=== PATIENT | male | born 1950 | race Caucasian/White ===

== ENCOUNTER 2017-04-17 02:20 | Inpatient (IN) | payer MEDICARE, OTHER ==
[2017-04-17] VITALS (12 sets, daily range): BP systolic 149–197; BP diastolic 68–100; PULSE 65–97; RESP 18; TEMP 95.6–98.3; O2SAT 94–96
[~2017-04-17] VITALS: Ht 175.3 cm; Wt 85.9 kg
[~2017-04-17 02:20] MED LIST: 1-ME1LIQ PO; ATOR20TA PO; BISA10SU PR; DILA100C PO; ISOS30TA3 PO; LEVE500 PO; LEVO.05 PO; LORA0.5T PO; METO25 PO; MILKSUS5 PO; PARO10TA PO; POTA20PA PO; PRIN10TA PO; PROM25TA5 PO; TAMS0.4C67 PO; WARF1TAB PO
[2017-04-17 02:39] LABS: AUTOMATED NEUTROPHIL # 7.3 TH/MM3 (1.8-7.7); BASOPHIL % 0.3 % (0.0-2.0); EOSINOPHIL # 0.1 TH/MM3 (0-0.4); EOSINOPHIL % 0.8 % (0.0-4.0); HEMATOCRIT 45.2 % (39.0-51.0); HEMO FLAGS DIFF FINAL; LYMPH % 11.2 % (9.0-44.0); MEAN CELL VOLUME 86.7 FL (80.0-100.0); MEAN CORPUSCULAR HEMOGLOBIN 31.1 PG (27.0-34.0); MEAN CORPUSCULAR HGB CONC 35.8 % (32.0-36.0); MONO % 8.7 % (0.0-8.0); PLATELET COUNT 193 TH/MM3 (150-450); RED BLOOD COUNT 5.21 MIL/MM3 (4.50-5.90); RED CELL DISTRIBUTION WIDTH 13.5 % (11.6-17.2); WHITE BLOOD COUNT 9.3 TH/MM3 (4.0-11.0)
--- NOTE | 2017-04-17 02:41 | PD ---
HPI Chief Complaint: Stroke Alert Time Seen by Provider: 02:28 Travel History International Travel<30 days: No Contact w/Intl Traveler<30days: No Traveled to known affect area: No History of Present Illness HPI 66-year-old male was brought in by EMS for possible stroke. [facility] at local [facility]. Patient was noticed to have slurred speech and left-sided facial drooping tonight. Last seen normal was 7 hours prior. EMS was called. Patient was brought to the ED for evaluation. Patient has history of chronic atrial fibrillation, seizure, hypertension, anxiety, malignant neoplasm of soft tissue. Patient is on Coumadin. Patient's unable to provide information. Agent has history of previous CVA with left-sided weakness. PFSH Past Medical History Atrial Fibrillation: Yes Depression: Yes High Cholesterol: Yes Chest Pain: Yes COPD: Yes Cerebrovascular Accident: Yes Coronary Artery Disease: Yes Genitourinary: Yes (BPH) Hypertension: Yes Myocardial Infarction: Yes Renal Failure: Yes (INSUFFICIENCY) Seizures: Yes Thyroid Disease: Yes Past Surgical History Abdominal Aneurysm Repair: Yes Coronary Artery Bypass Graft: Yes (X4 ) Social History Alcohol Use: No (H/O ALCOHOLISM) Tobacco Use: Yes (3 CIGARETTES DAILY) Substance Use: No Allergies-Medications (Allergen,Severity, Reaction): Coded Allergies: No Known Allergies (Verified , 03/22/15) Reported Meds & Prescriptions Reported Meds & Active Scripts Active Synthroid (Levothyroxine Sodium) 50 Mcg Tab 75 Mcg PO DAILY@06 Keppra (Levetriacetam) 500 Mg Tab 500 Mg PO Q12 Lorazepam 0.5 Mg Tab 0.5 Mg PO TID Reported Bisacodyl 10 Mg Sup 10 Mg OH DAILY Phenergan (Promethazine HCl) 25 Mg Tab 25 Mg PO Q4H Atorvastatin 20 mg tab (Atorvastatin Calcium) 20 Mg Tab 1 Tab PO HS Warfarin Sodium 1 mg (Warfarin Sodium) 1 Mg Tab 1 Tab PO DAILY Flomax (Tamsulosin HCl) 0.4 Mg Cap 0.8 Mg PO DAILY Isosorbide Mononitrate Er (Isosorbide Mononitrate) 30 Mg Tab 30 Mg PO BID Dilantin Kapseals (Phenytoin Sodium) 100 Mg Cap 125 Mg PO BID Metoprolol Tartrate 25 mg (Metoprolol Tartrate) 25 Mg Tab 25 Mg PO BID Amlodipine Besylate 10 mg (Amlodipine Besylate) 10 Mg Tab 5 Mg PO DAILY Klor-Con (Potassium Chloride) 20 Meq Pow 20 Meq PO DAILY Prinivil (Lisinopril) 10 Mg Tab 20 Mg PO BID Paroxetine Hcl (Paroxetine HCl) 10 Mg Tab 10 Mg PO DAILY Milk Of Magnesia (Magnesium Hydroxide) 30 Ml Susp 30 Ml PO DAILYPRN Review of Systems ROS Limitations: Altered Mental Status, Speech Impaired General / Constitutional: No: Fever Eyes: No: Visual changes HENT: No: Headaches Cardiovascular: No: Chest Pain or Discomfort Respiratory: No: Shortness of Breath Gastrointestinal: No: Abdominal Pain Genitourinary: No: Dysuria Musculoskeletal: No: Pain Skin: No Rash Neurologic: Positive: Weakness, Slurred Speech Psychiatric: No: Depression Endocrine: No: Polydipsia Hematologic/Lymphatic: No: Easy Bruising Physical Exam Narrative GENERAL: Well-nourished, well-developed patient. SKIN: Focused skin assessment warm/dry. HEAD: Normocephalic. EYES: No scleral icterus. No injection or drainage. Pupils 3 mm equal reactive. NECK: Supple, trachea midline. No JVD or lymphadenopathy. CARDIOVASCULAR: Regular rate and rhythm without murmurs, gallops, or rubs. RESPIRATORY: Breath sounds equal bilaterally. No accessory muscle use. GASTROINTESTINAL: Abdomen soft, non-tender, nondistended. MUSCULOSKELETAL: No cyanosis, or edema. BACK: Nontender without obvious deformity. No CVA tenderness. Neurologic exam: Patient is lethargic with slurred speech. Patient does not follow commands. Patient has eyes opening. Patient has mild drooping of the left side of face. Patient does not move left upper and lower extremity on command. Patient's moving right arm and right leg. Deep tendon reflexes +1 on the right side. Positive Babinski on the right side. Unable to appreciate deep tendon reflex on the left side. Negative Babinski on the left side. Data Data Last Documented VS Vital Signs Date Time Temp Pulse Resp B/P Pulse Ox O2 Delivery O2 Flow Rate FiO2 04/17/17 02:24 65 18 162/84 94 04/17/17 02:20 3.00 04/17/17 02:20 Nasal Cannula Orders Electrocardiogram (04/17/17 02:28) Complete Blood Count With Diff (04/17/17 02:28) Comprehensive Metabolic Panel (04/17/17 02:28) Creatine Kinase (Cpk) (04/17/17 02:28) Troponin I (04/17/17 02:28) B-Type Natriuretic Peptide (04/17/17 02:28) Prothrombin Time / Inr (Pt) (04/17/17 02:28) Act Partial Throm Time (Ptt) (04/17/17 02:28) Urinalysis - C+S If Indicated (04/17/17 02:28) Thyroid Stimulating Hormone (04/17/17 02:28) Chest, Single Ap (04/17/17 02:28) Ct Brain W/O Iv Contrast(Rout) (04/17/17 02:28) Iv Access Insert/Monitor (04/17/17 02:28) Ecg Monitoring (04/17/17:28) Oxygen Administration (04/17/17 02:28) Oximetry (04/17/17 02:28) MDM Medical Decision Making Medical Screen Exam Complete: Yes Emergency Medical Condition: Yes Differential Diagnosis Differential diagnosis including TIA, CVA, neuropathy. Narrative Course 66-year-old male with new onset of slurred speech and left-sided facial drooping. History of CVA with left-sided weakness in the past. History of atrial fibrillation on Coumadin. Joseph Dan MD Apr 17, 2017 02:41
[2017-04-17 03:08] LABS: APTT (PATIENT) 40.8 SEC (24.3-30.1); PROTHROMBIN TIME - PATIENT 34.7 SEC (9.8-11.6)
--- NOTE | 2017-04-17 03:09 | RADRPT ---
EXAM DATE/TIME: 04/17/2017 02:29 [facility] COMPARISON: CT BRAIN W/O CONTRAST, March 22, 2015, 20:40. INDICATIONS : Slurred speech, left facial droop. History of prior cerebral vascular accident.. RADIATION DOSE: 56.35 CTDIvol (mGy) ; Patient positioning MEDICAL HISTORY : Stroke. Hypertension. Benign prostatic hyperplasia, (BPH)Seizure. Coronary artery disease. SURGICAL HISTORY : Abdominal aortic aneurysm repair. CABG ENCOUNTER: Initial ACUITY: 1 day PAIN SCALE: 0/10 LOCATION: cranial TECHNIQUE: Multiple contiguous axial images were obtained of the head. Using automated exposure control and adj ustment of the mA and/or kV according to patient size, radiation dose was kept as low as reasonably a chievable to obtain optimal diagnostic quality images. DICOM format image data is available electro nically for review and comparison. FINDINGS: CEREBRUM: A large area of encephalomalacia is again noted involving the right parietal, temporal and occipital lobe. This is stable in appearance. There is atrophic change with sulcal and ventricular prominence. No evidence of midline shift, mass lesion, hemorrhage or acute infarction. No extra-axial fluid magdi ections are seen. POSTERIOR FOSSA: The cerebellum and brainstem are intact. The 4th ventricle is midline. The cerebellopontine angle i s unremarkable. EXTRACRANIAL: The visualized portion of the orbits is intact. SKULL: The calvaria is intact. No evidence of skull fracture. CONCLUSION: 1. No acute hemorrhage, mass or infarction. 2. Old right MCA territory infarct. Adan Alexandra MD on April 17, 2017 at 3:05 Board Certified Radiologist. This report was verified electronically.
--- NOTE | 2017-04-17 03:12 | RADRPT ---
EXAM DATE/TIME: 04/17/2017 02:33 [facility] COMPARISON: CHEST SINGLE AP, August 04, 2014, 7:57. INDICATIONS : Short of breath. MEDICAL HISTORY : None. SURGICAL HISTORY : CABG. ENCOUNTER: Initial ACUITY: 1 day PAIN SCORE: 0/10 LOCATION: Bilateral chest FINDINGS: A single AP supine view of the chest was obtained. The study is more Midinspiratory with mild crowdin g of the lung vasculature. The patient is again noted to be status post median sternotomy for bypass grafting procedure. There are no new confluent infiltrates or effusions. There is no evidence of pulm onary edema. There is mild scarring at the lung bases. The bony thorax is otherwise intact. CONCLUSION: No acute cardiopulmonary disease. Adan Alexandra MD on April 17, 2017 at 3:10 Board Certified Radiologist. This report was verified electronically.
[2017-04-17] MEDS ORDERED: WARF4TAB52 PO (03:20)
[2017-04-17] MEDS ORDERED: AMLO10TA2 PO (03:20)
[2017-04-17] MEDS ORDERED: ACET325C PO (03:20)
[2017-04-17] MEDS ORDERED: LISI-515 PO (03:20)
[2017-04-17] MEDS ORDERED: MULT-182 PO (03:20)
[2017-04-17] MEDS ORDERED: BISA10SU24 RECTAL (03:20)
[2017-04-17] MEDS ORDERED: BAZACRE TP (03:20)
[2017-04-17] MEDS ORDERED: LEVE500T8 PO (03:20)
[2017-04-17] MEDS ORDERED: ISOS30TA3 PO (03:20)
[2017-04-17] MEDS ORDERED: LEVO75TA3 PO (03:20)
[2017-04-17] MEDS ORDERED: TAMS0.4C4 PO (03:20)
[2017-04-17] MEDS ORDERED: LORA-373 PO (03:20)
[2017-04-17] MEDS ORDERED: METO25TA3 PO (03:20)
[2017-04-17] MEDS ORDERED: POTA-163 PO (03:20)
[2017-04-17] MEDS ORDERED: PHEN125S PO ×2 (03:20)
[2017-04-17] MEDS ORDERED: ASPIRIN 300 MG SUPP RECTAL ONE (03:45)
[2017-04-17] MEDS ORDERED: ACETAMINOPHEN 325 MG TAB PO PRN ×2 (04:30→08:15)
[2017-04-17] MEDS ORDERED: ONDANSETRON HCL 4 MG/2 ML VIAL IV PRN (04:30)
[2017-04-17] MEDS ORDERED: SODIUM CHLORIDE 0.9% FLUSH 10 ML FLUSH IVF PRN (04:30)
[2017-04-17 04:36] LABS: ALT (GPT) 21 U/L (12-78); ANION GAP 9 MEQ/L (5-15); AST (GOT) 31 U/L (15-37); BICARBONATE 24.2 MEQ/L (21.0-32.0); BLOOD UREA NITROGEN 13 MG/DL (7-18); CHLORIDE 100 MEQ/L (98-107); GLOMERULAR FILTRATION RATE 68 ML/MIN (>89); POTASSIUM 5.1 MEQ/L (3.5-5.1); SODIUM (NA) 133 MEQ/L (136-145)
[2017-04-17 04:43] LABS: ALKALINE PHOSPHATASE 100 U/L (45-117); TOTAL BILIRUBIN ADULT 0.3 MG/DL (0.2-1.0)
[2017-04-17 04:45] LABS: CREATINE KINASE 91 U/L (39-308)
[2017-04-17 04:56] LABS: BLOOD, URINE NEG (NEG); GLUCOSE,URINE TRACE mg/dL (NEG); KETONE, URINE NEG (NEG); NITRITE,URINE NEG (NEG); URINE COLOR LIGHT-YELLOW (YELLW/STRAW)
[2017-04-17 05:06] LABS: COMMENT (UR) CULT NOT INDICATED; CULTURE IF INDICATED CULT NOT INDICATED
[2017-04-17] MEDS ORDERED: BISACODYL 10 MG SUPP RECTAL PRN (08:15)
[2017-04-17] MEDS ORDERED: ONDANSETRON HCL 4 MG/2 ML VIAL IVP PRN (08:15)
[2017-04-17] MEDS ORDERED: SODIUM CHLORIDE 0.9% FLUSH 10 ML FLUSH IV FLUSH PRN ×2 (08:15→11:15)
[2017-04-17] MEDS ORDERED: ZOLPIDEM TARTRATE 5 MG TAB PO PRN (08:15)
[2017-04-17] MEDS ORDERED: MAGNESIUM HYDROXIDE SUSP 30 ML CUP PO PRN (08:15)
[2017-04-17] MEDS ORDERED: SENNOSIDES 8.6 MG TAB PO PRN (08:15)
[2017-04-17] MEDS ORDERED: LACTULOSE SYRUP 20 GM/30 ML CUP PO PRN (08:15)
[2017-04-17] MEDS ORDERED: NALOXONE HCL 0.4 MG/ML AMP IV PRN (08:15)
[2017-04-17] MEDS ORDERED: SODIUM CHLORIDE 0.9% FLUSH 10 ML FLUSH IV FLUSH SCH ×2 (09:00)
[2017-04-17] MEDS: DOCUSATE SODIUM 50 MG/SENNA 8.6 MG TAB PO SCH ×2 (09:00→20:35)
--- NOTE | 2017-04-17 10:32 | MH ---
cc: GAGANDEEP VICTORIA MD DATE OF ADMISSION: 04/17/2017 CHIEF COMPLAINT Altered mental status and stroke-like symptoms. HISTORY OF PRESENT ILLNESS Jey Blanco is a 66-year-old male. He resides at [facility]. He has been on Coumadin for many years that I can account for. His INR has been therapeutic and unfortunately at the [facility] he was found to have slurred speech and left facial droop. He has a underlying history of left side hemiparesis. I was called for emergency room transfer orders. The patient was transferred to [facility] and was found to have slurred speech and they confirm left-sided facial drooping. The patient is much more disheveled than usual. He does have left-sided facial droop and he reports that he cannot see. He states that he does recognize me and my voice. LABORATORY DATA Sodium 133, potassium 5.1, glucose 112, creatinine 1.09, CBC within normal limits. INR 3.0. Urine is clear. RADIOGRAPHY Chest x-ray shows no acute heart, lung disease. Head CT shows no acute hemorrhage, mass or infarction, old right MCA territory infarct. PAST MEDICAL HISTORY 1. CVA with left-sided hemiparesis. 2. Atrial fibrillation. 3. Hyperlipidemia. 4. COPD. 5. Coronary artery disease. 6. BPH. 7. Hypertension. 8. Myocardial infarction. 9. Renal insufficiency. 10. Seizures. 11. Hypothyroidism. SOCIAL HISTORY He recently quit smoking cigarettes and now is using E-cigarettes. He has a history of alcoholism but has abstained for at least several years. He occasionally would use a social beverage at the [facility]. No illicit drug usage. ALLERGIES NO KNOWN DRUG ALLERGIES. MEDICATION [facility] medications: 1. Synthroid. 2. Keppra. 3. Lorazepam scheduled t.i.d. 4. Dulcolax. 5. Phenergan. 6. Atorvastatin. 7. Coumadin 1 mg daily. 8. Flomax 0.4 mg two tablets daily. 9. Imdur 30 mg b.i.d. 10. Dilantin 125 mg b.i.d. 11. Metoprolol 25 mg b.i.d. 12. Norvasc 10 mg daily. 13. Klor-Con 20 mEq daily. 14. Lisinopril 20 mg b.i.d. 15. Paxil. 16. Qadw-fq-Flpjlofm. REVIEW OF SYSTEMS Altered mental status and slurred speech and new blindness. He has stable left hemiparesis overall. Negative 14-point review of systems otherwise. Review of systems is limited however. I did speak with the [facility]. VITAL SIGNS: Temperature 96.7, pulse 68, respirations 18, blood pressure 186/93, pulse 95, respirations 18. PHYSICAL EXAMINATION GENERAL: In general he is an alert male. He is laying flat. He appears to be overall in his usual state of health overall. HEENT: Oropharynx is clear. Poor dentition. Carotids are clear. No JVD. PERRLA. CARDIOVASCULAR: Regular rate and rhythm. No murmurs, rubs, clicks or gallops. ABDOMEN: Soft, nontender. No rebound or guarding. NEURO: Alert and oriented x 2. He is blind now. Cranial nerves are grossly intact except for a left facial droop. He has dense left hemiparesis in the left upper extremity and left lower extremity is 1/5 in strength, right lower extremity is 2/5 and right upper extremity is 3/5. He reports reduced sensation in the left dermatomes. ASSESSMENT 1. CVA now with blindness and left facial droop. On coumadin with INR 3.0 and now with blindness and left facial droop with underlying chronic left hemiparesis. 2. Atrial fibrillation. 3. Seizure disorder. 4. COPD, recently quit cigarettes. 5. Alcoholism history, currently in abstinence. 6. Hypertension. 7. Hyperlipidemia. 8. Hypothyroidism. 9. Chronic constipation. PLAN 1. MRI of the brain. 2. Neurology consult. 3. Aspirin given in the emergency room. 4. Coumadin for now, dose per pharmacy. 5. Speech therapy evaluation. 6. Head of the bed flat. 7. Permissive hypertension. 8. IV Keppra. 9. Nothing by mouth. 10. D5 normal saline. 11. Accu-Cheks with sliding scale insulin. 12. Telemetry. 13. SCDs. 14. TEDs. 15. Physical therapy. 16. Occupational therapy. 17. Inpatient admission for acute CVA. Expect 2-3 days of inpatient admission and discharge back to [facility]. The patient would without further workup and evaluation of his swallowing status. Gagandeep Victoria MD RP/GEETHA /9:33 AM /10:09 AM
[2017-04-17] MEDS: DEXT 5%-NACL 0.9% 1000 ML INJ 1,000 ML IV SCH ×2 (10:39→20:10)
[2017-04-17] MEDS: levETIRAcetam INJ 500 MG in SODIUM CHLORIDE 0.9% INJ 100 ML IV SCH (11:09)
[2017-04-17] MEDS ORDERED: DEXTROSE 50% IN WATER 50 ML VIAL(D50) IV PUSH PRN (11:15)
[2017-04-17] MEDS ORDERED: GLUCAGON 1 MG/ML VIAL OTHER PRN (11:15)
--- NOTE | 2017-04-17 12:18 | MB ---
cc: VIVEK GUADARRAMA M.D. DATE OF CONSULTATION 04/17/2017 REASON FOR CONSULTATION Stroke HISTORY OF PRESENT ILLNESS Mr. Blanco is a 66-year-old man who has a previous history of stroke with left-sided weakness. He takes Coumadin. [facility], developed slurred speech and increasing left facial droop, was brought to the hospital. He thinks his symptoms have improved. He is back to his baseline now. His INR was 3 on admission. PAST HISTORY 1. He has a history of previous stroke with left-sided weakness. 2. Atrial fibrillation. 3. Hyperlipidemia. 4. COPD. 5. BPH. 6. Hypertension. 7. MT. 8. Renal insufficiency. 9. Seizure disorder. MEDICATIONS In the [facility] were - 1. Coumadin 1 mg daily. 2. Keppra. 3. Dilantin. 4. Phenergan. 5. Dulcolax. 6. Lorazepam 7. Atorvastatin. 8. Imdur. 9. Metoprolol. 10. Norvasc. 11. Lisinopril. 12. Paxil. 13. Milk of Magnesia. NEUROLOGIC EXAMINATION VITAL SIGNS: His blood pressure is 186/93, pulse 68, respirations 18, temperature 96.7 degrees. HIGHER CORTICAL FUNCTION: He is alert. Speech is dysarthric but he states this is his baseline. CRANIAL NERVES: He does have a left facial droop. MOTOR EXAM: He has a left hemiparesis, 2/5 left upper extremity, 3/5 left lower extremity. Normal strength on the right. REFLEXES: Symmetric. IMAGING STUDIES CT of the brain - No acute stroke. The stroke is old. Right MCA stroke is identified. There is no hemorrhage. LABORATORY DATA White count 9300, hemoglobin 16.2, hematocrit 45%, platelets 193,000. COAGULATION STUDIES: PT 34.7, INR 3, APTT 40.8. Sodium is 133, potassium 5.1, chloride 100, CO2 24.2, the BUN is 13, creatinine 1.09, GFR 68, glucose 112. IMPRESSION Probable TIA which has now resolved. RECOMMENDATIONS 1. We will check an MRI/MRA brain, carotid ultrasound, echocardiogram. 2. Continue Coumadin at the present level. MD GHADA Garcia/[place] /11:10 AM /12:09 PM
--- NOTE | 2017-04-17 14:13 | EKG ---
Date Performed: 04/17/2017 Time Performed: 02:49:40 PTAGE: 66 years EKG: Sinus rhythm INFERIOR MYOCARDIAL INFARCTION ABNORMAL ECG Compared to prior tracing no significant change PREVIOUS TRACING : 08/04/2014 07.19 DOCTOR: Abram Gonzalez Interpretating Date/Time 04/17/2017 14:11:18
[2017-04-17] MEDS: INSULIN ASPART SUPPLEMENTAL SCALE SQ SCH ×2 (15:54→20:43)
[2017-04-17] MEDS ORDERED: WARFARIN SOD 1 MG TAB PO SCH (16:00)
--- NOTE | 2017-04-17 17:23 | RADRPT ---
EXAM DATE/TIME: 04/17/2017 15:32 [facility] COMPARISON: No previous studies available for comparison. INDICATIONS : Cerebral vascular accident. MEDICAL HISTORY : Myocardial infarction. Hypercholesterolemia. Benign prostatic hyperplasia, (BPH) A Fib. Hypertension. Renal insufficiency. COPD. Alcoholism. Thyroid disease. SURGICAL HISTORY : Abdominal aortic aneurysm repair. CAGB x4. ENCOUNTER: Initial ACUITY: 1 day PAIN SCORE: 0/10 LOCATION: Bilateral neck. PEAK SYSTOLIC VELOCITIES (cm/sec): ICA/CCA RATIO: Right: 0.8 Left: 1.5 ICA: Right: 47.9 Left: 79.0 CCA: Right: 57.0 Left: 52.6 ECA: Right: 82.5 Left: 90.3 VERTEBRAL: Right: 27.8 antegrade Left: 15.6 antegrade Elevated flow velocities and ICA/CCA ratios have been found to correlate with increased degrees of vessel stenosis, calculated as percentage of diameter relative to a normal segment of distal ICA/CCA FINDINGS: Antegrade flow is seen in both vertebral arteries. There is mild to moderate atherosclerotic plaquing at the origin of both ICAs without any significant stenosis. CONCLUSION: No evidence for hemodynamically significant stenosis. Ciarra Marin MD on April 17, 2017 at 17:20 Board Certified Radiologist. This report was verified electronically.
--- NOTE | 2017-04-17 18:35 | ECHRPT ---
Indication: cva/tia CONCLUSIONS The left ventricular systolic function is mildly reduced with an estimated ejection fraction in the range of 45- 50%. Mild concentric left ventricular hypertrophy. There was limited left ventricular wall motion assessment due to poor endocardial visualization. There is mild tricuspid valve regurgitation. BP: / HR: Rhythm: MEASUREMENTS (Male / Female) Normal Values Technical Quality:Technically difficult study 2D ECHO LV Diastolic Diameter PLAX 4.4 cm 4.2 - 5.9 / 3.9 - 5.3 cm LV Systolic Diameter PLAX 3.5 cm IVS Diastolic Thickness 1.4 cm 0.6 - 1.0 / 0.6 - 0.9 cm LVPW Diastolic Thickness 1.3 cm 0.6 - 1.0 / 0.6 - 0.9 cm LV Relative Wall Thickness 0.6 RV Internal Dim ED PLAX 2.8 cm M-MODE Aortic Root Diameter MM 3.4 cm LA Systolic Diameter MM 3.1 cm LA Ao Ratio MM 0.9 AV Cusp Separation MM 2.1 cm DOPPLER Mitral E Point Velocity 53.3 cm/s Mitral A Point Velocity 94.3 cm/s Mitral E to A Ratio 0.6 LV E' Lateral Velocity 5.6 cm/s Mitral E to LV E' Lateral Ratio 9.6 LV E' Septal Velocity 5.9 cm/s Mitral E to LV E' Septal Ratio 9.1 TR Peak Velocity 257.5 cm/s TR Peak Gradient 26.5 mmHg FINDINGS LEFT VENTRICLE Normal left ventricular size. Mild concentric left ventricular hypertrophy. The left ventricular systolic function is mildly reduced with an estimated ejection fraction in the range of 45- 50%. There was limited left ventricular wall motion assessment due to poor endocardial visualization. RIGHT VENTRICLE The right ventricle was not well visualized. LEFT ATRIUM The left atrial size is normal. RIGHT ATRIUM The right atrium is not well visualized. ATRIAL SEPTUM The interatrial septum not well visualized. AORTA The aortic root and proximal ascending aorta are not well visualized. MITRAL VALVE Structurally normal mitral valve. No mitral valve regurgitation. No mitral valve stenosis. AORTIC VALVE Trileaflet aortic valve. No aortic valve regurgitation. No aortic valve stenosis. TRICUSPID VALVE The tricuspid valve is not well visualized. There is mild tricuspid valve regurgitation. The estimated pulmonary arterial pressure is _25_ mmHg. PULMONARY VALVE The pulmonary valve is not well visualized. VESSELS The inferior vena cava is normal in size. PERICARDIUM No pericardial effusion. Patrick Hull DO (Electronically Signed) Final Date:17 April 2017 18:34
[2017-04-17] MEDS ORDERED: GADODIAMIDE PF 287 MG/ML 20 ML VIAL (for RAD MRI) IV ONE (20:04)
--- NOTE | 2017-04-17 20:28 | RADRPT ---
EXAM DATE/TIME: 04/17/2017 19:25 [facility] COMPARISON: CT BRAIN W/O CONTRAST, April 17, 2017, 2:29. MRI BRAIN W/O CONTRAST, August 04, 2014, 15:06. INDICATIONS : Stroke. MEDICAL HISTORY : Seizures. Myocardial infarction. Hypercholesterolemia. COPD, AFIB, Renal Insufficiency SURGICAL HISTORY : Abdominal aortic aneurysm repair. CABG ENCOUNTER: Initial ACUITY: 1 day PAIN SCORE: 3/10 LOCATION: Bilateral cranial TECHNIQUE: Multiplanar, multisequence MRI of the brain was performed without contrast. Fast scanning sequences were utilized. FINDINGS: Prior MRI had demonstrated large area of encephalomalacia involving the posterior right MCA distribut ion and diffuse T2 prolongation in the supratentorial white matter. These findings are stable. There is no abnormality characterized by T2 prolongation and markedly restricted diffusion involving the right cerebellar hemisphere sparing the vermis and medial one third and in the supratentorial bra in symmetric and bilateral involving occipital lobes and the medial temporal lobes. No focal suscept ibility abnormalities to suggest acute blood products. No significant mass effect. No midline shift. The ventricles remain prominent. No extra-axial hemo rrhage. The visualized structures of the orbits and paranasal sinuses are grossly intact. CONCLUSION: 1. Abnormal scan demonstrating evidence of acute infarction involving the posterior circulation bilat erally with large areas of restricted diffusion involving bilateral sacral, bilateral medial temporal and right mid/lateral cerebellar hemisphere. No significant mass effect and no evidence of hemorrha ge. 2. Stable large area of encephalomalacia in the posterior right MCA distribution. Castillo Butterfield MD on April 17, 2017 at 20:15 Board Certified Radiologist. This report was verified electronically.
[2017-04-17] MEDS: SODIUM CHLORIDE 0.9% FLUSH 10 ML FLUSH IV FLUSH SCH (20:35)
[2017-04-17] MEDS: LORazepam 2 MG/ML VIAL IV PUSH SCH (20:38)
[2017-04-17] MEDS: PHENYTOIN INJ 100 MG/2 ML VIAL IV SCH (20:39)
[2017-04-17] MEDS ORDERED: diphenhydrAMINE HCL 50 MG/ML VIAL IV PRN (21:30)
[2017-04-17] MEDS ORDERED: methylPREDNISolone SOD SUCC 125 MG/2 ML VIAL IV ONE (22:00)
[2017-04-17] MEDS ORDERED: diphenhydrAMINE HCL 50 MG/ML VIAL IV ONE (22:00)
[2017-04-17 22:32] LABS: HEMOGLOBIN A1a 1.5 %; HEMOGLOBIN Ao 84.9 %; HEMOGLOBIN F 1.3 %; HEMOGLOBIN LA1C 1.8 %; HEMOGLOBIN P3 3.4 %
[2017-04-17 22:49] LABS: INTERNATIONAL NORMALIZED RATIO 3.2 RATIO; PROTHROMBIN TIME - PATIENT 37.5 SEC (9.8-11.6)
--- NOTE | 2017-04-17 23:31 | RADRPT ---
EXAM DATE/TIME: 04/17/2017 19:25 [facility] COMPARISON: MRI BRAIN W/O CONTRAST, April 17, 2017, 19:25. MRA BRAIN W/O CONTRAST, August 04, 2014, 15:06. INDICATIONS : Stroke. MEDICAL HISTORY : Seizures. Hypertension. Myocardial infarction. COPD, AFIB, Renal Insufficiency SURGICAL HISTORY : Abdominal aortic aneurysm repair. CABG ENCOUNTER: Initial ACUITY: 1 day PAIN SCORE: 3/10 LOCATION: Bilateral cranial Please note a normal MRA of the brain does not entirely exclude the possibility of a small aneurysm, nor the possibility of distal intracranial vessel disease. TECHNIQUE: 3D time of flight MRA was performed. Source images, multiplanar STS MIP, and 3D volume MIP reconstru ctions were reviewed. FINDINGS: Mild compromise of image quality due to patient motion during the acquisition. The study is still di agnostic. Intact flow in the A1 and M1 segments bilaterally and intact flow in the anterior communic ating artery. There is absent flow in the right sylvian branch vessels correlating with area of old infarction. No aneurysm seen. In the posterior circulation, the basilar artery is intact. Symmetric flow is seen in both posterior cerebral arteries. No vessel truncation seen. No flow seen in either superior cerebellar artery. No flow seen in either PCOM. CONCLUSION: 1. Intact flow in the posterior cerebral arteries bilaterally. 2. Absent flow in the right sylvian branch vessels of the middle cerebral artery corresponding to are a of old infarction. 3. Incomplete [place] Castillo Butterfield MD on April 17, 2017 at 23:25 Board Certified Radiologist. This report was verified electronically.
--- NOTE | 2017-04-17 23:36 | RADRPT ---
EXAM DATE/TIME: 04/17/2017 19:25 [facility] COMPARISON: No previous studies available for comparison. INDICATIONS : Stroke. CONTRAST: 20 cc Omniscan (gadodiamide) IV MEDICAL HISTORY : Myocardial infarction. Seizures. Hypertension. COPD, AFIB, Renal Insufficiency. SURGICAL HISTORY : CABG Abdominal aortic aneurysm repair. ENCOUNTER: Initial ACUITY: 1 day PAIN SCORE: 3/10 LOCATION: Bilateral cranial Percent stenosis is calculated using the diameter of the stenotic region over the diameter of the nor mal distal internal carotid artery. TECHNIQUE: Bolus infused MRA of the extracranial circulation was performed using a neurovascular coil. Post pro cessing was performed including rotating subvolume maximum intensity projections of each carotid jozef ry, rotating full volume maximum intensity projections of both carotid arteries, sagittal and coronal sliding thin slab reformations of each carotid artery, and left oblique sliding thin slab reformatio n through the aortic arch to include the origin of the arch branch vessels. FINDINGS: AORTIC ARCH: There is a three vessel origin of the great vessels from the aorta. No evidence of ostial narrowing. RIGHT CAROTID: Common carotid artery is intact. There is 50% narrowing of the orifice of the right internal carotid artery without poststenotic dilatation. LEFT CAROTID: Common carotid artery is intact. There is a mild plaque eccentric in the proximal internal carotid a rtery which causes less than 10% luminal narrowing. VERTEBRALS: Vertebral system is right dominant. There is a significant stenosis, greater than 80% in the distal right vertebral artery approximately 2 cm before the confluence. There is absent flow seen in the di stal left vertebral artery. CONCLUSION: 1. Abnormal posterior circulation with the right dominant vertebral and severe stenosis of the distal right vertebral artery, greater than 80%. Absent flow in the distal left vertebral artery. 2. Mild (50%) narrowing of the origin of the right internal carotid artery. Castillo Butterfield MD on April 17, 2017 at 23:30 Board Certified Radiologist. This report was verified electronically.
[2017-04-18] MEDS: levETIRAcetam INJ 500 MG in SODIUM CHLORIDE 0.9% INJ 100 ML IV SCH ×3 (00:03→22:48)
[2017-04-18 04:39] VITALS: BP 172/104; PULSE 85; RESP 18; TEMP 96.2; O2SAT 94
[2017-04-18] MEDS: LEVOTHYROXINE SODIUM 100 MCG VIAL IV PUSH SCH (06:25)
[2017-04-18] MEDS ORDERED: MORPHINE SULFATE 8 MG/ML INJ IV PUSH PRN (07:00)
[2017-04-18] MEDS ORDERED: ENALAPRILAT 2.5 MG/2 ML VIAL IV PUSH PRN (07:00)
[2017-04-18] MEDS: INSULIN ASPART SUPPLEMENTAL SCALE SQ SCH ×4 (07:00→20:28)
[2017-04-18 07:58] LABS: AUTOMATED NEUTROPHIL # 6.4 TH/MM3 (1.8-7.7); BASOPHIL % 0.2 % (0.0-2.0); EOSINOPHIL % 0.1 % (0.0-4.0); HEMATOCRIT 49.1 % (39.0-51.0); LYMPH % 19.8 % (9.0-44.0); LYMPHOCYTE # 1.7 TH/MM3 (1.0-4.8); MEAN CORPUSCULAR HEMOGLOBIN 30.6 PG (27.0-34.0); MEAN CORPUSCULAR HGB CONC 35.6 % (32.0-36.0); NEUT % 73.9 % (16.0-70.0); PLATELET COUNT 214 TH/MM3 (150-450); RED BLOOD COUNT 5.71 MIL/MM3 (4.50-5.90); RED CELL DISTRIBUTION WIDTH 13.3 % (11.6-17.2); WHITE BLOOD COUNT 8.7 TH/MM3 (4.0-11.0)
[2017-04-18 08:00] VITALS: BP 176/92; PULSE 79; RESP 18; TEMP 97.9; O2SAT 93
[2017-04-18 08:00] LABS: PROTHROMBIN TIME - PATIENT 35.1 SEC (9.8-11.6)
[2017-04-18 08:09] LABS: HEMO FLAGS AUTO DIFF
[2017-04-18 08:19] LABS: BICARBONATE 23.5 MEQ/L (21.0-32.0); POTASSIUM 4.1 MEQ/L (3.5-5.1)
[2017-04-18 08:21] LABS: HDL CHOLESTEROL 36.4 MG/DL (40.0-60.0)
[2017-04-18] MEDS: DOCUSATE SODIUM 50 MG/SENNA 8.6 MG TAB PO SCH ×2 (09:00→20:26)
[2017-04-18 09:10] LABS: PLATELET ESTIMATE SMEAR NORMAL (NORMAL); PLATELET MORPHOLOGY NORMAL (NORMAL); SCAN/DIFF AUTO DIFF CONFIRMED
[2017-04-18] MEDS: PHENYTOIN INJ 100 MG/2 ML VIAL IV SCH ×2 (09:38→20:28)
[2017-04-18] MEDS: LORazepam 2 MG/ML VIAL IV PUSH SCH ×2 (09:40→20:28)
[2017-04-18] MEDS: SODIUM CHLORIDE 0.9% FLUSH 10 ML FLUSH IV FLUSH SCH ×2 (09:41→20:28)
[2017-04-18] MEDS: DEXT 5%-NACL 0.9% 1000 ML INJ 1,000 ML IV SCH (10:13)
--- NOTE | 2017-04-18 10:47 | HHI.FPPN ---
Subjective Remarks CALLED W CONTRAST RXN VISON IMPROVING LESS FACIAL DROOP D/W RN Objective Vitals Vital Signs Date Time Temp Pulse Resp B/P Pulse Ox O2 Delivery O2 Flow Rate FiO2 04/18/17 09:46 21 04/18/17 08:00 97.9 79 18 176/92 93 04/18/17 04:39 96.2 85 18 172/104 94 04/17/17 23:43 95.6 97 18 96 04/17/17 19:05 98.3 88 18 197/100 95 04/17/17 18:00 21 04/17/17 16:00 95.9 72 18 185/100 94 04/17/17 13:00 73 04/17/17 12:00 96.0 89 18 177/97 95 I/O 04/17/17 04/17/17 04/17/17 04/18/17 04/18/17 04/18/17 07:00 15:00 23:00 07:00 15:00 23:00 Intake Total 126 ml 0 ml 0 ml Output Total 350 ml Balance 126 ml -350 ml 0 ml Intake Oral 0 ml 0 ml IV Total 126 ml Output Urine Total 350 ml # Voids 4 7 # Bowel Movements 1 0 0 Result Diagram: 04/18/17 0720 04/18/17 0720 Imaging Last 72 hours Impressions Neck Magnetic Resonance Angiography 04/17/17422 Signed Impressions: Service Date/Time: Monday, April 17, 2017 19:25 - CONCLUSION: 1. Abnormal posterior circulation with the right dominant vertebral and severe stenosis of the distal right vertebral artery, greater than 80%%. Absent flow in the distal left vertebral artery. 2. Mild (50%%) narrowing of the origin of the right internal carotid artery. Castillo Butterfield MD Head Magnetic Resonance Angiography 04/17/17422 Signed Impressions: Service Date/Time: Monday, April 17, 2017 19:25 - CONCLUSION: 1. Intact flow in the posterior cerebral arteries bilaterally. 2. Absent flow in the right sylvian branch vessels of the middle cerebral artery corresponding to area of old infarction. 3. Incomplete [place] Castillo Butterfield MD Brain MRI 04/17/17422 Signed Impressions: Service Date/Time: Monday, April 17, 2017 19:25 - CONCLUSION: 1. Abnormal scan demonstrating evidence of acute infarction involving the posterior circulation bilaterally with large areas of restricted diffusion involving bilateral sacral , bilateral medial temporal and right mid/lateral cerebellar hemisphere. No significant mass effect and no evidence of hemorrhage. 2. Stable large area of encephalomalacia in the posterior right MCA distribution. Castillo Butterfield MD Head CT 04/17/17227 Signed Impressions: Service Date/Time: Monday, April 17, 2017 02:29 - CONCLUSION: 1. No acute hemorrhage, mass or infarction. 2. Old right MCA territory infarct. Adan Alexandra MD Chest X-Ray 04/17/17227 Signed Impressions: Service Date/Time: Monday, April 17, 2017 02:33 - CONCLUSION: No acute cardiopulmonary disease. Adan Alexandra MD Carotid Artery Ultrasound 04/17/17 0000 Signed Impressions: Service Date/Time: Monday, April 17, 2017 15:32 - CONCLUSION: No evidence for hemodynamically significant stenosis. Ciarra Marin MD Objective Remarks GENERAL: SKIN: Warm and dry. HEAD: Atraumatic. Normocephalic. EYES: Pupils equal and round. No scleral icterus. No injection or drainage. ENT: No nasal bleeding or discharge. Mucous membranes pink and moist. NECK: Trachea midline. No JVD. CARDIOVASCULAR: Regular rate and rhythm. RESPIRATORY: No accessory muscle use. Clear to auscultation. Breath sounds equal bilaterally. GASTROINTESTINAL: Abdomen soft, non-tender, nondistended. Hepatic and splenic margins not palpable. MUSCULOSKELETAL: Extremities without clubbing, cyanosis, or edema. No obvious deformities. NEUROLOGICAL: Awake and alert. L JACOB. L FACIAL DROOP. VISION BLURRY PSYCHIATRIC: Appropriate mood and affect; insight and judgment normal. Medications and IVs Current Medications Medications (Trade) Dose Ordered Sig/Ada Route Start Time Stop Time Status Last Admin (Zofran Inj) 4 mg Q6H PRN IV 04/17/17 04:30 (Tylenol) 650 mg Q4H PRN PO 04/17/17 08:15 (Ambien) 5 mg HS PRN PO 04/17/17 08:15 (Narcan Inj) 0.4 mg UNSCH PRN IV 04/17/17 08:15 (Nandini-Colace) 1 tab BID PO 04/17/17 09:00 (Milk Of Magnesia Liq) 30 ml Q12H PRN PO 04/17/17 08:15 (Senokot) 17.2 mg Q12H PRN PO 04/17/17 08:15 (Dulcolax Supp) 10 mg DAILY PRN RECTAL 04/17/17 08:15 Lactulose 30 ml 30 ml DAILY PRN PO 04/17/17 08:15 Dextrose/Sodium Chloride 1,000 ml @ 84 mls/hr [id number] IV 04/17/17 08:15 04/18/17 10:13 Pharmacy Profile Note 0 ml @ 0 mls/hr UNSCH OTHER 04/17/17 08:15 (Keppra Inj/NS Inj) 105 ml @ 420 mls/hr Q12H IV 04/17/17 11:00 04/18/17 09:39 (Dilantin Inj) 100 mg Q12HR IV 04/17/17 21:00 04/18/17 09:38 (Synthroid Inj) 25 mcg DAILY@06 IV PUSH 04/18/17 06:00 04/18/17 06:25 (Ativan Inj) 0.5 mg Q12HR IV PUSH 04/17/17 21:00 04/18/17 09:40 (NS Flush) 2 ml BID IV FLUSH 04/17/17 21:00 04/18/17 09:41 (NS Flush) 2 ml UNSCH PRN IV FLUSH 04/17/17 11:15 (NovoLOG SUPPLEMENTAL SCALE) 1 ACHS SQ 04/17/17 16:00 (D50w (Vial) Inj) 50 ml UNSCH PRN IV PUSH 04/17/17 11:15 (Glucagon Inj) 1 mg UNSCH PRN OTHER 04/17/17 11:15 (Coumadin) 1 mg DAILY@16 PO 04/17/17 16:00 Hold (Benadryl Inj) 25 mg Q6H PRN IV 04/17/17 21:30 (Morphine Inj) 5 mg Q4H PRN IV PUSH 04/18/17 07:00 (Vasotec Inj) 2.5 mg Q6H PRN IV PUSH 04/18/17 07:00 A/P Assessment and Plan 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 chronic left hemiparesis. IV CONTRAST REACTION Atrial fibrillation. Seizure disorder. COPD, recently quit cigarettes. Alcoholism history, currently in abstinence. Hypertension. Hyperlipidemia. Hypothyroidism. Chronic constipation. PLAN- iv STEROID AND BENADRYL FOR MRI CONTRAST REACTION. Coumadin, dose per pharmacy. NEURO CONSULT FOR FURTHER RECS VASCULAR SURGERY CONSULT FOR NECK DZ Speech therapy evaluation. Permissive hypertension. IV Keppra. Nothing by mouth. D5 normal saline. Accu-Cheks with sliding scale insulin. Telemetry. SCDs. TEDs. Physical therapy. Occupational therapy. Gagandeep Cerda MD Apr 18, 2017 10:47
[2017-04-18 12:00] VITALS: BP 169/110; PULSE 82; RESP 18; TEMP 96.8; O2SAT 95
--- NOTE | 2017-04-18 12:46 | PD.VS.CON ---
History of Present Illness Chief Complaint: Carotid Artery Stenosis Consult Requested by: Dr. Cerda History of Present Illness Per EMR Mr. Blanco is a 66/M with a hx of CVA with left sided hemiparesis who resides at [facility]. Pt was found yesterday to have slurred speech, vision loss with left sided facial droop (new onset) and was sent to the Emergency Department Pt currently with slurred speech and not answering most questions/ intermittent expressive aphasia (Mona Etienne) Past/Family/Social History Past Medical History Atrial Fibrillation Hypertension [place] Hyperlipidemia CVA w/ left sided hemiparesis COPD Coronary Artery Disease Renal Insufficiency Seizures Hypothyroidism BPH Social History Negative tobacco usage Negative ETOH Negative Illicit drug usage (Mona Etienne) Home Medications Reported Medications Tamsulosin 0.4 Mg Cap0.8 Mg PO HS #60 CAP Ref 0 04/17/17 Lorazepam 0.5 Mg Tab0.5 Mg PO TID Ref 0 04/17/17 Levothyroxine 75 Mcg Tab75 Mcg PO DAILY #30 TAB Ref 0 04/17/17 Levetiracetam 500 Mg [id number] Mg PO BID #60 TAB Ref 0 04/17/17 Potassium Chloride ER 20 Meq Tab20 Meq PO DAILY #30 TAB Ref 0 04/17/17 Isosorbide Mononitrate ER 30 Mg Taber30 Mg PO BID #30 TAB Ref 0 04/17/17 Metoprolol Tartrate 25 Mg Tab25 Mg PO BID #60 TAB Ref 0 04/17/17 Acetaminophen 325 Mg [id number] Mg PO Q4HR PRN (PAIN SCALE 1 TO 10) 04/17/17 Lisinopril 20 Mg Tab20 Mg PO DAILY #30 TAB Ref 0 04/17/17 Phenytoin Liq 125 Mg/5 Ml [id number] Mg PO BID #237 ML Ref 0 04/17/17 Phenytoin Liq 125 Mg/5 Ml Unx437 Mg PO HS #237 ML Ref 0 04/17/17 Warfarin 1 Mg Tab1 Mg PO DAILY #30 TAB Ref 0 04/17/17 Amlodipine 10 Mg Tab10 Mg PO DAILY #30 TAB Ref 0 04/17/17 Multivitamin with Minerals (Josh Multivitamin with Mineral)1 Each Tablet1 Tab PO DAILY 04/17/17 Bisacodyl Supp (Bisacodyl Laxative Supp)10 Mg Supp10 Mg RECTAL DAILY PRN 04/17/17 Skin Protectants, Misc. (Carlos A Protect)1 Cre CreUnknown Dose TP TID 04/17/17 Coded Allergies: Contrast Media (Verified Allergy, Severe, Rash, 04/18/17) Review of Systems ROS Limitations: Speech Impaired (slurred speech and aphasic at times ) Musculoskeletal: COMPLAINS OF: Stiffness (left sided weakness) (Mona Eitenne) Physical Exam Vitals/I&O Date Time Temp Pulse Resp B/P Pulse Ox O2 Delivery O2 Flow Rate FiO2 04/18/17 09:46 21 04/18/17 08:00 97.9 79 18 176/92 93 04/18/17 04:39 96.2 85 18 172/104 94 04/17/17 23:43 95.6 97 18 96 04/17/17 19:05 98.3 88 18 197/100 95 04/17/17 18:00 21 04/17/17 16:00 95.9 72 18 185/100 94 04/17/17 13:00 73 04/18/17 04/18/17 04/18/17 06:59 14:59 22:59 Intake Total 0 ml Balance 0 ml Neuro: Alert / Not oriented to person, time or place Slurred speech with intermittent expressive aphasia Heart: +S1,S2 Vascular: No JVD No Carotid Bruit present (Mona Etienne) Laboratory Tests Test 04/17/17 04/18/17 22:18 07:20 Prothrombin Time 37.5 35.1 Prothromb Time International 3.2 3.0 Ratio White Blood Count 8.7 Red Blood Count 5.71 Hemoglobin 17.5 Hematocrit 49.1 Mean Corpuscular Volume 86.0 Mean Corpuscular Hemoglobin 30.6 Mean Corpuscular Hemoglobin 35.6 Concent Red Cell Distribution Width 13.3 Platelet Count 214 Mean Platelet Volume 6.6 Neutrophils (%) (Auto) 73.9 Lymphocytes (%) (Auto) 19.8 Monocytes (%) (Auto) 6.0 Eosinophils (%) (Auto) 0.1 Basophils (%) (Auto) 0.2 Neutrophils # (Auto) 6.4 Lymphocytes # (Auto) 1.7 Monocytes # (Auto) 0.5 Eosinophils # (Auto) 0.0 Basophils # (Auto) 0.0 CBC Comment AUTO DIFF Differential Comment AUTO DIFF CONFIRMED Platelet Estimate NORMAL Platelet Morphology Comment NORMAL Red Cell Morphology Comment NORMAL Sodium Level 133 Potassium Level 4.1 Chloride Level 101 Carbon Dioxide Level 23.5 Anion Gap 9 Blood Urea Nitrogen 9 Creatinine 0.94 Estimat Glomerular Filtration 81 Rate Random Glucose 126 Calcium Level 8.3 Triglycerides Level 138 Cholesterol Level 232 LDL Cholesterol 168 HDL Cholesterol 36.4 Cholesterol/HDL Ratio 6.37 Last 48 hours Impressions Neck Magnetic Resonance Angiography 04/17/17422 Signed Impressions: Service Date/Time: Monday, April 17, 2017 19:25 - CONCLUSION: 1. Abnormal posterior circulation with the right dominant vertebral and severe stenosis of the distal right vertebral artery, greater than 80%%. Absent flow in the distal left vertebral artery. 2. Mild (50%%) narrowing of the origin of the right internal carotid artery. Castillo Butterfield MD Head Magnetic Resonance Angiography 04/17/17422 Signed Impressions: Service Date/Time: Monday, April 17, 2017 19:25 - CONCLUSION: 1. Intact flow in the posterior cerebral arteries bilaterally. 2. Absent flow in the right sylvian branch vessels of the middle cerebral artery corresponding to area of old infarction. 3. Incomplete [place] Castillo Butterfield MD Brain MRI 04/17/17422 Signed Impressions: Service Date/Time: Monday, April 17, 2017 19:25 - CONCLUSION: 1. Abnormal scan demonstrating evidence of acute infarction involving the posterior circulation bilaterally with large areas of restricted diffusion involving bilateral sacral , bilateral medial temporal and right mid/lateral cerebellar hemisphere. No significant mass effect and no evidence of hemorrhage. 2. Stable large area of encephalomalacia in the posterior right MCA distribution. Castillo Butterfield MD Head CT 04/17/17227 Signed Impressions: Service Date/Time: Monday, April 17, 2017 02:29 - CONCLUSION: 1. No acute hemorrhage, mass or infarction. 2. Old right MCA territory infarct. Adan Alexandra MD Chest X-Ray 04/17/17227 Signed Impressions: Service Date/Time: Monday, April 17, 2017 02:33 - CONCLUSION: No acute cardiopulmonary disease. Adan Alexandra MD Carotid Artery Ultrasound 04/17/17 0000 Signed Impressions: Service Date/Time: Monday, April 17, 2017 15:32 - CONCLUSION: No evidence for hemodynamically significant stenosis. Ciarra Marin MD (Mona Etienne) Assessment and Plan Assessment: (1) Carotid artery disease Status: Acute Plan Pt with new onset slurred speech, vision loss and left sided facial droop. Plan Reviewed MRA/U/s studies Pt with mild Right sided carotid disease Pt not a surgical candidate Recommend Medical Management such as blood thinner, statin and b/p control Will have patient f/u in 1M in our out patient clinic for a surveillance Carotid Duplex Mona ROSARIO [facility] [phone] Discharge Planning Arranged OP f/u (Mona Etienne) Assessment: (1) Carotid artery disease Status: Acute Plan I agree with above. Patient with known left arm paralysis. Also with expressive aphasia. I don't believe his current symptoms are attributable to his mile right ICA stenosis. He would not benefit from a prophylactic CEA at this point as he has already had a major CVA. Chang Posey DO, FACS (Chang Posey DO) Problem Qualifiers (1) Carotid artery disease: Qualified Code: I77.9 - Bilateral carotid artery disease Mona Etienne Apr 18, 2017 12:46 Chagn Posey DO Apr 18, 2017 15:47
[2017-04-18 16:00] VITALS: BP 176/100; PULSE 76; RESP 18; TEMP 97.6; O2SAT 93
[2017-04-18 20:25] VITALS: BP 168/90; PULSE 77; RESP 18; TEMP 96.6; O2SAT 96
[2017-04-18 21:49] VITALS: PULSE 77
--- NOTE | 2017-04-18 22:10 | HHI.PR ---
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 When starts to decrease, start full dose lovenox. Diagnosis/Plan: Subjective Subjective Comments No acute events reported Active Medications Current Medications Medications (Trade) Dose Ordered Sig/Ada Route Start Time Stop Time Status Last Admin (Zofran Inj) 4 mg Q6H PRN IV 04/17/17 04:30 (Tylenol) 650 mg Q4H PRN PO 04/17/17 08:15 04/18/17 20:27 (Ambien) 5 mg HS PRN PO 04/17/17 08:15 (Narcan Inj) 0.4 mg UNSCH PRN IV 04/17/17 08:15 (Nandini-Colace) 1 tab BID PO 04/17/17 09:00 04/18/17 20:26 (Milk Of Magnesia Liq) 30 ml Q12H PRN PO 04/17/17 08:15 (Senokot) 17.2 mg Q12H PRN PO 04/17/17 08:15 (Dulcolax Supp) 10 mg DAILY PRN RECTAL 04/17/17 08:15 Lactulose 30 ml 30 ml DAILY PRN PO 04/17/17 08:15 Dextrose/Sodium Chloride 1,000 ml @ 42 mls/hr [id number] IV 04/17/17 08:15 04/18/17 10:13 Pharmacy Profile Note 0 ml @ 0 mls/hr UNSCH OTHER 04/17/17 08:15 (Keppra Inj/NS Inj) 105 ml @ 420 mls/hr Q12H IV 04/17/17 11:00 04/18/17 09:39 (Dilantin Inj) 100 mg Q12HR IV 04/17/17 21:00 04/18/17 20:28 (Synthroid Inj) 25 mcg DAILY@06 IV PUSH 04/18/17 06:00 04/18/17 06:25 (Ativan Inj) 0.5 mg Q12HR IV PUSH 04/17/17 21:00 04/18/17 20:28 (NS Flush) 2 ml BID IV FLUSH 04/17/17 21:00 04/18/17 20:28 (NS Flush) 2 ml UNSCH PRN IV FLUSH 04/17/17 11:15 (NovoLOG SUPPLEMENTAL SCALE) 1 ACHS SQ 04/17/17 16:00 (D50w (Vial) Inj) 50 ml UNSCH PRN IV PUSH 04/17/17 11:15 (Glucagon Inj) 1 mg UNSCH PRN OTHER 04/17/17 11:15 (Coumadin) 1 mg DAILY@16 PO 04/17/17 16:00 Hold (Benadryl Inj) 25 mg Q6H PRN IV 04/17/17 21:30 (Morphine Inj) 5 mg Q4H PRN IV PUSH 04/18/17 07:00 (Vasotec Inj) 2.5 mg Q6H PRN IV PUSH 04/18/17 07:00 Allergies Allergies Coded Allergies Contrast Media (Verified Allergy, Severe, Rash, 04/18/17) Exam I&O / VS 04/17/17 04/17/17 04/18/17 15:00 23:00 07:00 Intake Total 126 ml 0 ml 0 ml Output Total 350 ml Balance 126 ml -350 ml 0 ml Intake Oral 0 ml 0 ml IV Total 126 ml Output Urine Total 350 ml # Voids 4 7 # Bowel Movements 1 0 0 Vital Signs Date Time Temp Pulse Resp B/P Pulse Ox O2 Delivery O2 Flow Rate FiO2 04/18/17 21:49 77 04/18/17 20:25 96.6 77 18 168/90 96 04/18/17 16:00 97.6 76 18 176/100 93 04/18/17 12:00 96.8 82 18 169/110 95 04/18/17 09:46 21 04/18/17 08:00 97.9 79 18 176/92 93 04/18/17 04:39 96.2 85 18 172/104 94 04/17/17 23:43 95.6 97 18 96 Exam Comments alert, speech very dysarthric CN--left upper motor neuron CN 7 palsey. EOM intact MOTOR 1/5 LUE and LLE Objective Radiology Results MRI brain --bilateral COGENERATION TECHNICIAN distribution CVA MRA--intact basilar artery. occluded vertebral artery with other 80% stenotic Micro and Labs Laboratory Tests Test 04/17/17 04/18/17 22:18 07:20 Prothrombin Time 37.5 35.1 Prothromb Time International 3.2 3.0 Ratio White Blood Count 8.7 Red Blood Count 5.71 Hemoglobin 17.5 Hematocrit 49.1 Mean Corpuscular Volume 86.0 Mean Corpuscular Hemoglobin 30.6 Mean Corpuscular Hemoglobin 35.6 Concent Red Cell Distribution Width 13.3 Platelet Count 214 Mean Platelet Volume 6.6 Neutrophils (%) (Auto) 73.9 Lymphocytes (%) (Auto) 19.8 Monocytes (%) (Auto) 6.0 Eosinophils (%) (Auto) 0.1 Basophils (%) (Auto) 0.2 Neutrophils # (Auto) 6.4 Lymphocytes # (Auto) 1.7 Monocytes # (Auto) 0.5 Eosinophils # (Auto) 0.0 Basophils # (Auto) 0.0 CBC Comment AUTO DIFF Differential Comment AUTO DIFF CONFIRMED Platelet Estimate NORMAL Platelet Morphology Comment NORMAL Red Cell Morphology Comment NORMAL Sodium Level 133 Potassium Level 4.1 Chloride Level 101 Carbon Dioxide Level 23.5 Anion Gap 9 Blood Urea Nitrogen 9 Creatinine 0.94 Estimat Glomerular Filtration 81 Rate Random Glucose 126 Calcium Level 8.3 Triglycerides Level 138 Cholesterol Level 232 LDL Cholesterol 168 HDL Cholesterol 36.4 Cholesterol/HDL Ratio 6.37 Jey Bush PhD Apr 18, 2017 22:10
[2017-04-19 00:12] VITALS: BP 179/91; PULSE 65; RESP 18; TEMP 97.5; O2SAT 96
[2017-04-19 04:13] VITALS: BP 158/74; PULSE 64; RESP 18; TEMP 98.1; O2SAT 95
[2017-04-19] MEDS: LEVOTHYROXINE SODIUM 100 MCG VIAL IV PUSH SCH (05:56)
[2017-04-19] MEDS: INSULIN ASPART SUPPLEMENTAL SCALE SQ SCH ×4 (05:57→22:39)
[2017-04-19] MEDS: DEXT 5%-NACL 0.9% 1000 ML INJ 1,000 ML IV SCH (05:57)
[2017-04-19 07:51] LABS: INTERNATIONAL NORMALIZED RATIO 2.4 RATIO; PROTHROMBIN TIME - PATIENT 27.8 SEC (9.8-11.6)
[2017-04-19 08:00] LABS: AUTOMATED NEUTROPHIL # 5.3 TH/MM3 (1.8-7.7); BASOPHIL % 0.3 % (0.0-2.0); EOSINOPHIL # 0.2 TH/MM3 (0-0.4); EOSINOPHIL % 2.3 % (0.0-4.0); HEMATOCRIT 47.1 % (39.0-51.0); HEMO FLAGS DIFF FINAL; LYMPH % 25.4 % (9.0-44.0); LYMPHOCYTE # 2.2 TH/MM3 (1.0-4.8); MEAN CELL VOLUME 85.8 FL (80.0-100.0); MEAN CORPUSCULAR HEMOGLOBIN 30.6 PG (27.0-34.0); MEAN CORPUSCULAR HGB CONC 35.6 % (32.0-36.0); MONO % 10.4 % (0.0-8.0); NEUT % 61.6 % (16.0-70.0); PLATELET COUNT 216 TH/MM3 (150-450); RED BLOOD COUNT 5.49 MIL/MM3 (4.50-5.90); RED CELL DISTRIBUTION WIDTH 13.4 % (11.6-17.2); WHITE BLOOD COUNT 8.6 TH/MM3 (4.0-11.0)
[2017-04-19 08:01] VITALS: BP 138/76; PULSE 69; RESP 18; TEMP 97.3; O2SAT 97
[2017-04-19 08:15] LABS: BICARBONATE 24.3 MEQ/L (21.0-32.0); POTASSIUM 3.5 MEQ/L (3.5-5.1)
[2017-04-19] MEDS ORDERED: LORA-373 PO (08:26)
--- NOTE | 2017-04-19 08:29 | HHI.DCPOC ---
Discharge Care Plan Diagnosis: (1) Carotid artery disease Goals to Promote Your Health * To prevent worsening of your condition and complications * To maintain your health at the optimal level Directions to Meet Your Goals Take your medications as prescribed Follow your dietary instruction Follow activity as directed Keep your appointments as scheduled Take your immunizations and boosters as scheduled If your symptoms worsen call your PCP, if no PCP go to Urgent Care Center or Emergency Room Smoking is Dangerous to Your Health. Avoid second hand smoke Call the 24-hour hour crisis hotline for domestic abuse at Gagandeep Cerda MD Apr 19, 2017 08:29
--- NOTE | 2017-04-19 08:30 | HHI.DS ---
Discharge Summary Admission Date Apr 17, 2017 at 04:28 Discharge Date: Apr 19, 2017 Admitting Diagnosis acute CVA (1) Carotid artery disease CBC/BMP: 04/19/17 0632 04/19/17 0632 Significant Findings Laboratory Tests Test 04/17/17 04/17/17 04/17/17 04/18/17 02:32 03:40 22:18 07:20 Mean Platelet Volume 6.4 FL 6.6 FL (7.0-11.0) (7.0-11.0) Neutrophils (%) (Auto) 79.0 % 73.9 % (16.0-70.0) (16.0-70.0) Monocytes (%) (Auto) 8.7 % (0.0-8.0) Prothrombin Time 34.7 SEC 37.5 SEC 35.1 SEC (9.8-11.6) (9.8-11.6) (9.8-11.6) Activated Partial 40.8 SEC Thromboplast Time (24.3-30.1) Sodium Level 133 MEQ/L 133 MEQ/L (136-145) (136-145) Estimat Glomerular Filtration 68 ML/MIN (>89) 81 ML/MIN (>89) Rate Random Glucose 112 MG/DL 126 MG/DL (74-106) (74-106) Troponin I LESS THAN 0.02 NG/ML (0.02-0.05) Hemoglobin 17.5 GM/DL (13.0-17.0) Calcium Level 8.3 MG/DL (8.5-10.1) Cholesterol Level 232 MG/DL (120-200) LDL Cholesterol 168 MG/DL (0-99) HDL Cholesterol 36.4 MG/DL (40.0-60.0) Test 04/19/17 06:32 Mean Platelet Volume 6.5 FL (7.0-11.0) Monocytes (%) (Auto) 10.4 % (0.0-8.0) Prothrombin Time 27.8 SEC (9.8-11.6) Sodium Level 134 MEQ/L (136-145) Estimat Glomerular Filtration 80 ML/MIN (>89) Rate Calcium Level 8.4 MG/DL (8.5-10.1) Imaging Last 72 hours Impressions Neck Magnetic Resonance Angiography 04/17/17 0423 Signed Impressions: Service Date/Time: Monday, April 17, 2017 19:25 - CONCLUSION: 1. Abnormal posterior circulation with the right dominant vertebral and severe stenosis of the distal right vertebral artery, greater than 80%%. Absent flow in the distal left vertebral artery. 2. Mild (50%%) narrowing of the origin of the right internal carotid artery. Castillo Butterfield MD Head Magnetic Resonance Angiography 04/17/17422 Signed Impressions: Service Date/Time: Monday, April 17, 2017 19:25 - CONCLUSION: 1. Intact flow in the posterior cerebral arteries bilaterally. 2. Absent flow in the right sylvian branch vessels of the middle cerebral artery corresponding to area of old infarction. 3. Incomplete [place] Castillo Butterfield MD Brain MRI 04/17/17422 Signed Impressions: Service Date/Time: Monday, April 17, 2017 19:25 - CONCLUSION: 1. Abnormal scan demonstrating evidence of acute infarction involving the posterior circulation bilaterally with large areas of restricted diffusion involving bilateral sacral , bilateral medial temporal and right mid/lateral cerebellar hemisphere. No significant mass effect and no evidence of hemorrhage. 2. Stable large area of encephalomalacia in the posterior right MCA distribution. Castillo Butterfield MD Head CT 04/17/17227 Signed Impressions: Service Date/Time: Monday, April 17, 2017 02:29 - CONCLUSION: 1. No acute hemorrhage, mass or infarction. 2. Old right MCA territory infarct. Adan Alexandra MD Chest X-Ray 04/17/17227 Signed Impressions: Service Date/Time: Monday, April 17, 2017 02:33 - CONCLUSION: No acute cardiopulmonary disease. Adan Alexandra MD Carotid Artery Ultrasound 04/17/17 0000 Signed Impressions: Service Date/Time: Monday, April 17, 2017 15:32 - CONCLUSION: No evidence for hemodynamically significant stenosis. Ciarra Marin MD PE at Discharge GENERAL: SKIN: Warm and dry. HEAD: Atraumatic. Normocephalic. EYES: Pupils equal and round. No scleral icterus. No injection or drainage. ENT: No nasal bleeding or discharge. Mucous membranes pink and moist. NECK: Trachea midline. No JVD. CARDIOVASCULAR: Regular rate and rhythm. RESPIRATORY: No accessory muscle use. Clear to auscultation. Breath sounds equal bilaterally. GASTROINTESTINAL: Abdomen soft, non-tender, nondistended. Hepatic and splenic margins not palpable. MUSCULOSKELETAL: Extremities without clubbing, cyanosis, or edema. No obvious deformities. NEUROLOGICAL: Awake and alert. No obvious cranial nerve deficits. Motor grossly within normal limits. L JACOB. Normal speech. PSYCHIATRIC: Appropriate mood and affect; insight and judgment normal. Hospital Course 66 Y CM. 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 chronic left hemiparesis. IV CONTRAST REACTION Atrial fibrillation. Seizure disorder. COPD, recently quit cigarettes. Alcoholism history, currently in abstinence. Hypertension. Hyperlipidemia. Hypothyroidism. Chronic constipation. HOSPITAL COURSE AND PLAN WAS TO - iv STEROID AND BENADRYL FOR MRI CONTRAST REACTION. Coumadin, dose per pharmacy. NEURO CONSULT FOR FURTHER RECS VASCULAR SURGERY CONSULT FOR NECK DZ Speech therapy evaluation. Permissive hypertension. IV Keppra. Nothing by mouth. D5 normal saline. Accu-Cheks with sliding scale insulin. Telemetry. SCDs. TEDs. Physical therapy. Occupational therapy. Discharge Disposition: Discharge to SNF Discharge Instructions DIET: Follow Instructions for: Pureed Diet Speech Therapy-Diet Recommenda: Pureed Activities you can perform: Regular-No Restrictions Follow up Referrals: Vascular Surgery @ Vascular Surgery with Chang Posey V. DO F/U on 05/24/17 at 1100 w/ a surveillance Carotid Duplex S/P new onset Right Sided Carotid Artery Disease Continued Medications: Acetaminophen (Acetaminophen) 325 Mg Capsule 650 MG PO Q4HR PRN PAIN SCALE 1 TO 10 Amlodipine (Amlodipine) 10 Mg Tab 10 MG PO DAILY Blood Pressure Management #30 Ref 0 TAB Bisacodyl Supp (Bisacodyl Laxative Supp) 10 Mg Supp 10 MG RECTAL DAILY PRN SUPP Isosorbide Mononitrate ER (Isosorbide Mononitrate ER) 30 Mg Michael 30 MG PO BID Prevent Chest Pain #30 Ref 0 TAB Levetiracetam (Levetiracetam) 500 Mg Tab 500 MG PO BID Control Seizures #60 Ref 0 TAB Levothyroxine (Levothyroxine) 75 Mcg Tab 75 MCG PO DAILY Thyroid #30 Ref 0 TAB Lisinopril (Lisinopril) 20 Mg Tab 20 MG PO DAILY #30 Ref 0 TAB Lorazepam (Lorazepam) 0.5 Mg Tab 0.5 MG PO TID Seizure Control #90 Ref 5 TAB NS (This prescription has been renewed) Metoprolol Tartrate (Metoprolol Tartrate) 25 Mg Tab 25 MG PO BID #60 Ref 0 TAB Multivitamin with Minerals (Josh Multivitamin with Mineral) 1 Each Tablet 1 TAB PO DAILY Phenytoin Liq (Phenytoin Liq) 125 Mg/5 Ml Heidy 200 MG PO HS Control Seizures #237 Ref 0 ML Phenytoin Liq (Phenytoin Liq) 125 Mg/5 Ml Heidy 100 MG PO BID Control Seizures #237 Ref 0 ML Potassium Chloride ER (Potassium Chloride ER) 20 Meq Tab 20 MEQ PO DAILY Electrolyte Replacement #30 Ref 0 TAB Skin Protectants, Misc. (Carlos A Protect) 1 Cre Cre Unknown Dose TP TID Tamsulosin (Tamsulosin) 0.4 Mg Cap 0.8 MG PO HS Manage Prostate Problems #60 Ref 0 CAP Warfarin (Warfarin) 1 Mg Tab 1 MG PO DAILY Blood Clot Prevention #30 Ref 0 TAB Gagandeep Cerda MD Apr 19, 2017 08:30
[2017-04-19] MEDS: SODIUM CHLORIDE 0.9% FLUSH 10 ML FLUSH IV FLUSH SCH ×2 (09:00→22:53)
[2017-04-19] MEDS: DOCUSATE SODIUM 50 MG/SENNA 8.6 MG TAB PO SCH ×2 (10:19→22:52)
[2017-04-19] MEDS: PHENYTOIN INJ 100 MG/2 ML VIAL IV SCH ×2 (10:21→22:53)
[2017-04-19] MEDS: LORazepam 2 MG/ML VIAL IV PUSH SCH ×2 (10:21→22:52)
[2017-04-19] MEDS: levETIRAcetam INJ 500 MG in SODIUM CHLORIDE 0.9% INJ 100 ML IV SCH ×2 (10:41→22:53)
[2017-04-19 11:15] VITALS: BP 172/96; PULSE 67; RESP 18; TEMP 95.7; O2SAT 97
[2017-04-19 16:00] VITALS: BP 187/98; PULSE 76; RESP 18; TEMP 96.9; O2SAT 94
--- NOTE | 2017-04-19 16:29 | RADRPT ---
EXAM DATE/TIME: 04/19/2017 15:24 [place] COMPARISON: MRI BRAIN W/O CONTRAST, April 17, 2017, 19:25. CT BRAIN W/O CONTRAST, April 17, 2017, 2:29. INDICATIONS : Altered mental status. RADIATION DOSE: 52.68 CTDIvol (mGy) MEDICAL HISTORY : Cardiovascular disease. Hypertension. Renal failure, chronic. SURGICAL HISTORY : Coronary artery stent. ENCOUNTER: Initial ACUITY: 1 day PAIN SCALE: Non-responsive LOCATION: cranial TECHNIQUE: Multiple contiguous axial images were obtained of the head. Using automated exposure control and adj ustment of the mA and/or kV according to patient size, radiation dose was kept as low as reasonably a chievable to obtain optimal diagnostic quality images. DICOM format image data is available electro nically for review and comparison. FINDINGS: CEREBRUM: Stable large encephalomalacic defect in the right posterior parietal mid convexities consistent with old MCA territory infarct. Evolving acute infarction involving the right cerebellum, bilateral occipi elodia lobes, and medial temporal lobes. No intercurrent hemorrhage or hydrocephalus. No extra-axial flu id collections are seen. POSTERIOR FOSSA: The left cerebellum and brainstem are intact. The 4th ventricle is midline. The cerebellopontine an gle is unremarkable. EXTRACRANIAL: The visualized portion of the orbits is intact. SKULL: The calvaria is intact. No evidence of skull fracture. CONCLUSION: 1. Evolving acute infarction involving the right cerebellum, bilateral temporal lobes and medial temp oral lobes. 2. Stable old right MCA territory infarct. 3. No intercurrent hemorrhage or interval acute abnormality. Lucio Leggett MD on April 19, 2017 at 16:20 Board Certified Radiologist. This report was verified electronically.
--- NOTE | 2017-04-19 17:23 | PD.CONS ---
[facility] Service Rehabilitation Medicine Consult Requested By Jey Bush M.D. Reason for Consult Comprehensive rehabilitation evaluation. Primary Care Physician Gagandeep Cerda MD History of Present Illness Jey Blanco is a 66-year-old male admitted [facility] 04/17/17 with slurred speech, left facial droop and decreased vision. Head CT showed old right MCA infarct. MRI showed acute infarct posterior circulation bilaterally including right cerebellum, bilateral occipital lobes and bilateral medial temporal lobes. He was started on Lovenox per neurology recommendations. He was treated for MRI contrast reaction. Review of Systems ROS Limitations: Clinical Condition Constitutional: COMPLAINS OF: Fatigue Eyes: COMPLAINS OF: Vision loss, DENIES: Diplopia Ears, nose, mouth, throat: DENIES: Throat pain Respiratory: DENIES: Shortness of breath Cardiovascular: DENIES: Chest pain Gastrointestinal: DENIES: Abdominal pain Integumentary: DENIES: Pruritus Hematologic/lymphatic: DENIES: Bruising Immunologic/allergic: DENIES: Urticaria Neurologic: COMPLAINS OF: Localized weakness, Speech Problems, DENIES: Headache Past Family Social History Allergies: Coded Allergies: Contrast Media (Verified Allergy, Severe, Rash, 04/18/17) Past Medical History Previous stroke with left hemiparesis Atrial fibrillation Hyperlipidemia COPD Coronary artery disease BPH Hypertension Previous [place] Renal insufficiency Seizure disorder Hypothyroidism Past Surgical History None noted Current Medications Current Medications Medications (Trade) Dose Ordered Sig/Ada Route Start Time Stop Time Status Last Admin (Zofran Inj) 4 mg Q6H PRN IV 04/17/17 04:30 (Tylenol) 650 mg Q4H PRN PO 04/17/17 08:15 04/18/17 20:27 (Ambien) 5 mg HS PRN PO 04/17/17 08:15 (Narcan Inj) 0.4 mg UNSCH PRN IV 04/17/17 08:15 (Nandini-Colace) 1 tab BID PO 04/17/17 09:00 04/19/17 10:19 (Milk Of Magnesia Liq) 30 ml Q12H PRN PO 04/17/17 08:15 (Senokot) 17.2 mg Q12H PRN PO 04/17/17 08:15 (Dulcolax Supp) 10 mg DAILY PRN RECTAL 04/17/17 08:15 Lactulose 30 ml 30 ml DAILY PRN PO 04/17/17 08:15 Dextrose/Sodium Chloride 1,000 ml @ 42 mls/hr [id number] IV 04/17/17 08:15 04/19/17 05:57 Pharmacy Profile Note 0 ml @ 0 mls/hr UNSCH OTHER 04/17/17 08:15 (Keppra Inj/NS Inj) 105 ml @ 420 mls/hr Q12H IV 04/17/17 11:00 04/19/17 10:41 (Dilantin Inj) 100 mg Q12HR IV 04/17/17 21:00 04/19/17 10:21 (Synthroid Inj) 25 mcg DAILY@06 IV PUSH 04/18/17 06:00 04/19/17 05:56 (Ativan Inj) 0.5 mg Q12HR IV PUSH 04/17/17 21:00 04/19/17 10:21 (NS Flush) 2 ml BID IV FLUSH 04/17/17 21:00 04/19/17 09:00 (NS Flush) 2 ml UNSCH PRN IV FLUSH 04/17/17 11:15 (NovoLOG SUPPLEMENTAL SCALE) 1 ACHS SQ 04/17/17 16:00 (D50w (Vial) Inj) 50 ml UNSCH PRN IV PUSH 04/17/17 11:15 (Glucagon Inj) 1 mg UNSCH PRN OTHER 04/17/17 11:15 (Coumadin) 1 mg DAILY@16 PO 04/17/17 16:00 Hold (Benadryl Inj) 25 mg Q6H PRN IV 04/17/17 21:30 (Morphine Inj) 5 mg Q4H PRN IV PUSH 04/18/17 07:00 (Vasotec Inj) 2.5 mg Q6H PRN IV PUSH 04/18/17 07:00 Family History Unable to obtain Social History Prior to admission patient was residing in [facility] facility. He required 1 person for transfers and use wheelchair for all mobility. He required assistance with ADLs Exam I&O / VS 04/18/17 04/18/17 04/19/17 14:59 22:59 06:59 Intake Total 0 ml 457 ml 370 ml Output Total 150 ml 200 ml Balance 0 ml 307 ml 170 ml Intake Oral 0 ml 240 ml 60 ml IV Total 217 ml 310 ml Output Urine Total 150 ml 200 ml # Voids 3 2 # Bowel Movements 0 0 0 Vital Signs Date Time Temp Pulse Resp B/P Pulse Ox O2 Delivery O2 Flow Rate FiO2 04/19/17 16:00 96.9 76 18 187/98 94 04/19/17 11:15 95.7 67 18 172/96 97 04/19/17 08:01 97.3 69 18 138/76 97 04/19/17 04:13 98.1 64 18 158/74 95 04/19/17 00:12 97.5 65 18 179/91 96 04/18/17 21:49 77 04/18/17 20:25 96.6 77 18 168/90 96 General: No acute distress Respiratory: Lungs CTA, Non-labored respirations, Coarse breath sounds Gastrointestinal: Positive Bowel Sounds, Non-Distended, Non-Tender Cardiovascular: Normal rate, Irregular Rhythm Skin: Other (no rash noted) Psychiatric: Cooperative, Appropriate mood & affect Orientation: oriented to Self, oriented to Place, oriented to Situation, disoriented to Time Neurologic: Pupils (reactive bilaterally), Facial Symmetry (left facial droop) , Speech (dysarthric but intelligible) Motor: Right Upper Extremity (0/5 and tone is increased for elbow flexion, wrist flexion and finger flexion with spasticity and limited range of motion), Left Upper Extremity (grossly intact), Right Lower Extremity (hip extension 2/5 ; ankle plantarflexion 1/5; range of motion at the left ankle is limited to approximately -30), Left Lower Extremity (grossly intact) Sensory Appears to be present but impaired in the left upper lower extremity DTRs: Abnormal (brisk in the left upper and lower extremity) Assessment and Plan Diagnosis: (1) Posterior circulation stroke Assessment 1. Bilateral SLOT ATTENDANT infarcts 2. 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 Impaired mobility and ADLs due to the above 4. Atrial fibrillation 5. COPD 6. CAD status post [place] 7. Hyperlipidemia 8. Seizure 9. Hypothyroidism 10. Renal insufficiency Plan 1. Physical therapy as mobilizing and patient is now max assist of 2 for transfers. Would continue to progress with goal of 1 person transfer 2. Occupational therapy addressing ADLs and now max assist for feeding and grooming and dependent for remainder of ADLs. 3. Speech therapy has evaluated swallow and tolerating pured diet with thin liquids. Continue to monitor her to advance as tolerated 4. Anticipate the patient will return in [facility] facility for ongoing rehabilitation and long-term care. Case management is addressing discharge planning 5. Will follow while hospitalized and at discharge as needed Thank you for this consult Sandra Pal MD Apr 19, 2017 17:22
[2017-04-19 20:40] VITALS: BP 181/95; PULSE 72; RESP 19; TEMP 96.5; O2SAT 94
--- NOTE | 2017-04-19 20:41 | HHI.PR ---
Review/Management Diagnosis bilateral VP ANCILLARY cva Plan resume coumadin 1 mg daily and follow INR Diagnosis/Plan: Subjective Subjective Comments No acute events reported able to swallow puree and liquids. Active Medications Current Medications Medications (Trade) Dose Ordered Sig/Ada Route Start Time Stop Time Status Last Admin (Zofran Inj) 4 mg Q6H PRN IV 04/17/17 04:30 (Tylenol) 650 mg Q4H PRN PO 04/17/17 08:15 04/18/17 20:27 (Ambien) 5 mg HS PRN PO 04/17/17 08:15 (Narcan Inj) 0.4 mg UNSCH PRN IV 04/17/17 08:15 (Nandini-Colace) 1 tab BID PO 04/17/17 09:00 04/19/17 10:19 (Milk Of Magnesia Liq) 30 ml Q12H PRN PO 04/17/17 08:15 (Senokot) 17.2 mg Q12H PRN PO 04/17/17 08:15 (Dulcolax Supp) 10 mg DAILY PRN RECTAL 04/17/17 08:15 Lactulose 30 ml 30 ml DAILY PRN PO 04/17/17 08:15 Dextrose/Sodium Chloride 1,000 ml @ 42 mls/hr [id number] IV 04/17/17 08:15 04/19/17 05:57 Pharmacy Profile Note 0 ml @ 0 mls/hr UNSCH OTHER 04/17/17 08:15 (Keppra Inj/NS Inj) 105 ml @ 420 mls/hr Q12H IV 04/17/17 11:00 04/19/17 10:41 (Dilantin Inj) 100 mg Q12HR IV 04/17/17 21:00 04/19/17 10:21 (Synthroid Inj) 25 mcg DAILY@06 IV PUSH 04/18/17 06:00 04/19/17 05:56 (Ativan Inj) 0.5 mg Q12HR IV PUSH 04/17/17 21:00 04/19/17 10:21 (NS Flush) 2 ml BID IV FLUSH 04/17/17 21:00 04/19/17 09:00 (NS Flush) 2 ml UNSCH PRN IV FLUSH 04/17/17 11:15 (NovoLOG SUPPLEMENTAL SCALE) 1 ACHS SQ 04/17/17 16:00 (D50w (Vial) Inj) 50 ml UNSCH PRN IV PUSH 04/17/17 11:15 (Glucagon Inj) 1 mg UNSCH PRN OTHER 04/17/17 11:15 (Coumadin) 1 mg DAILY@16 PO 04/17/17 16:00 Hold (Benadryl Inj) 25 mg Q6H PRN IV 04/17/17 21:30 (Morphine Inj) 5 mg Q4H PRN IV PUSH 04/18/17 07:00 (Vasotec Inj) 2.5 mg Q6H PRN IV PUSH 04/18/17 07:00 Allergies Allergies Coded Allergies Contrast Media (Verified Allergy, Severe, Rash, 04/18/17) Exam I&O / VS 04/18/17 04/18/17 04/19/17 15:00 23:00 07:00 Intake Total 0 ml 457 ml 370 ml Output Total 150 ml 200 ml Balance 0 ml 307 ml 170 ml Intake Oral 0 ml 240 ml 60 ml IV Total 217 ml 310 ml Output Urine Total 150 ml 200 ml # Voids 3 2 # Bowel Movements 0 0 0 Vital Signs Date Time Temp Pulse Resp B/P Pulse Ox O2 Delivery O2 Flow Rate FiO2 04/19/17 16:00 96.9 76 18 187/98 94 04/19/17 11:15 95.7 67 18 172/96 97 04/19/17 08:01 97.3 69 18 138/76 97 04/19/17 04:13 98.1 64 18 158/74 95 04/19/17 00:12 97.5 65 18 179/91 96 04/18/17 21:49 77 Respiratory: Lungs CTA, Non-labored respirations, Coarse breath sounds Cardiology: Normal rate, Irregular Rhythm Exam Comments alert, speech very dysarthric CN--left upper motor neuron CN 7 palsey. EOM intact MOTOR 1/5 LUE and LLE Objective Radiology Results CT brain--right cerebellar cva, bilateral temporal lobe CVA Micro and Labs Laboratory Tests Test 04/19/17 06:32 White Blood Count 8.6 Red Blood Count 5.49 Hemoglobin 16.8 Hematocrit 47.1 Mean Corpuscular Volume 85.8 Mean Corpuscular Hemoglobin 30.6 Mean Corpuscular Hemoglobin 35.6 Concent Red Cell Distribution Width 13.4 Platelet Count 216 Mean Platelet Volume 6.5 Neutrophils (%) (Auto) 61.6 Lymphocytes (%) (Auto) 25.4 Monocytes (%) (Auto) 10.4 Eosinophils (%) (Auto) 2.3 Basophils (%) (Auto) 0.3 Neutrophils # (Auto) 5.3 Lymphocytes # (Auto) 2.2 Monocytes # (Auto) 0.9 Eosinophils # (Auto) 0.2 Basophils # (Auto) 0.0 CBC Comment DIFF FINAL Differential Comment Prothrombin Time 27.8 Prothromb Time International 2.4 Ratio Sodium Level 134 Potassium Level 3.5 Chloride Level 100 Carbon Dioxide Level 24.3 Anion Gap 10 Blood Urea Nitrogen 11 Creatinine 0.95 Estimat Glomerular Filtration 80 Rate Random Glucose 91 Calcium Level 8.4 Jey Bush PhD Apr 19, 2017 20:40
[2017-04-20] VITALS (7 sets, daily range): BP systolic 156–193; BP diastolic 87–97; PULSE 62–77; RESP 17–20; TEMP 95.5–97.7; O2SAT 93–96
[2017-04-20] MEDS: LEVOTHYROXINE SODIUM 100 MCG VIAL IV PUSH SCH (06:36)
[2017-04-20] MEDS: INSULIN ASPART SUPPLEMENTAL SCALE SQ SCH ×4 (07:00→21:00)
[2017-04-20] MEDS ORDERED: TOPR100T PO (07:47)
[2017-04-20 08:12] LABS: AUTOMATED NEUTROPHIL # 6.7 TH/MM3 (1.8-7.7); BASOPHIL % 0.3 % (0.0-2.0); EOSINOPHIL # 0.3 TH/MM3 (0-0.4); EOSINOPHIL % 2.6 % (0.0-4.0); HEMATOCRIT 53.9 % (39.0-51.0); LYMPH % 21.9 % (9.0-44.0); LYMPHOCYTE # 2.2 TH/MM3 (1.0-4.8); MEAN CELL VOLUME 85.9 FL (80.0-100.0); MEAN CORPUSCULAR HEMOGLOBIN 30.6 PG (27.0-34.0); MEAN CORPUSCULAR HGB CONC 35.6 % (32.0-36.0); MONO % 9.6 % (0.0-8.0); NEUT % 65.6 % (16.0-70.0); PLATELET COUNT 159 TH/MM3 (150-450); RED BLOOD COUNT 6.27 MIL/MM3 (4.50-5.90); RED CELL DISTRIBUTION WIDTH 13.3 % (11.6-17.2); WHITE BLOOD COUNT 10.3 TH/MM3 (4.0-11.0)
[2017-04-20 08:24] LABS: HEMO FLAGS AUTO DIFF
[2017-04-20] MEDS: SODIUM CHLORIDE 0.9% FLUSH 10 ML FLUSH IV FLUSH SCH ×2 (09:00→23:01)
[2017-04-20 09:18] LABS: SCAN/DIFF AUTO DIFF CONFIRMED
[2017-04-20] MEDS: DOCUSATE SODIUM 50 MG/SENNA 8.6 MG TAB PO SCH ×2 (11:46→22:59)
[2017-04-20] MEDS: LORazepam 2 MG/ML VIAL IV PUSH SCH ×2 (11:46→22:59)
[2017-04-20] MEDS: PHENYTOIN INJ 100 MG/2 ML VIAL IV SCH ×2 (11:46→23:00)
[2017-04-20] MEDS: levETIRAcetam INJ 500 MG in SODIUM CHLORIDE 0.9% INJ 100 ML IV SCH ×2 (11:47→23:09)
[2017-04-20] MEDS ORDERED: WARFARIN SOD 1 MG TAB PO SCH (16:00)
--- NOTE | 2017-04-20 18:40 | HHI.PR ---
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 Plan continue coumadin 1 mg daily and follow INR Diagnosis/Plan: Subjective Subjective Comments No acute events reported Active Medications Current Medications Medications (Trade) Dose Ordered Sig/Ada Route Start Time Stop Time Status Last Admin (Zofran Inj) 4 mg Q6H PRN IV 04/17/17 04:30 (Tylenol) 650 mg Q4H PRN PO 04/17/17 08:15 04/18/17 20:27 (Ambien) 5 mg HS PRN PO 04/17/17 08:15 (Narcan Inj) 0.4 mg UNSCH PRN IV 04/17/17 08:15 (Nandini-Colace) 1 tab BID PO 04/17/17 09:00 04/20/17 11:46 (Milk Of Magnesia Liq) 30 ml Q12H PRN PO 04/17/17 08:15 (Senokot) 17.2 mg Q12H PRN PO 04/17/17 08:15 (Dulcolax Supp) 10 mg DAILY PRN RECTAL 04/17/17 08:15 Lactulose 30 ml 30 ml DAILY PRN PO 04/17/17 08:15 Dextrose/Sodium Chloride 1,000 ml @ 42 mls/hr [id number] IV 04/17/17 08:15 04/19/17 05:57 Pharmacy Profile Note 0 ml @ 0 mls/hr UNSCH OTHER 04/17/17 08:15 (Keppra Inj/NS Inj) 105 ml @ 420 mls/hr Q12H IV 04/17/17 11:00 04/20/17 11:47 (Dilantin Inj) 100 mg Q12HR IV 04/17/17 21:00 04/20/17 11:46 (Synthroid Inj) 25 mcg DAILY@06 IV PUSH 04/18/17 06:00 04/20/17 06:36 (Ativan Inj) 0.5 mg Q12HR IV PUSH 04/17/17 21:00 04/20/17 11:46 (NS Flush) 2 ml BID IV FLUSH 04/17/17 21:00 04/19/17 22:53 (NS Flush) 2 ml UNSCH PRN IV FLUSH 04/17/17 11:15 (NovoLOG SUPPLEMENTAL SCALE) 1 ACHS SQ 04/17/17 16:00 (D50w (Vial) Inj) 50 ml UNSCH PRN IV PUSH 04/17/17 11:15 (Glucagon Inj) 1 mg UNSCH PRN OTHER 04/17/17 11:15 (Benadryl Inj) 25 mg Q6H PRN IV 04/17/17 21:30 (Morphine Inj) 5 mg Q4H PRN IV PUSH 04/18/17 07:00 (Vasotec Inj) 2.5 mg Q6H PRN IV PUSH 04/18/17 07:00 04/20/17 11:46 (Coumadin) 1 mg DAILY@16 PO 04/20/17 16:00 04/20/17 16:38 Allergies Allergies Coded Allergies Contrast Media (Verified Allergy, Severe, Rash, 04/18/17) Exam I&O / VS 04/19/17 04/19/17 04/20/17 15:00 23:00 07:00 Intake Total 360 ml 240 ml 120 ml Balance 360 ml 240 ml 120 ml Intake Oral 360 ml 240 ml 120 ml # Voids 4 2 3 # Bowel Movements 0 0 0 Vital Signs Date Time Temp Pulse Resp B/P Pulse Ox O2 Delivery O2 Flow Rate FiO2 04/20/17 16:00 97.7 77 18 156/97 93 04/20/17 12:00 96.7 73 18 177/92 95 04/20/17 09:20 62 04/20/17 08:00 96.6 65 17 193/92 96 04/20/17 04:30 96.5 69 20 163/87 93 04/20/17 00:30 96.3 65 20 176/94 95 04/19/17 20:40 96.5 72 19 181/95 94 Respiratory: Lungs CTA, Non-labored respirations, Coarse breath sounds Cardiology: Normal rate, Irregular Rhythm Exam Comments alert, speech very dysarthric CN--left upper motor neuron CN 7 palsey. EOM intact MOTOR 1/5 LUE and LLE Objective Micro and Labs Laboratory Tests Test 04/20/17 07:32 White Blood Count 10.3 Red Blood Count 6.27 Hemoglobin 19.2 Hematocrit 53.9 Mean Corpuscular Volume 85.9 Mean Corpuscular Hemoglobin 30.6 Mean Corpuscular Hemoglobin 35.6 Concent Red Cell Distribution Width 13.3 Platelet Count 159 Mean Platelet Volume 6.9 Neutrophils (%) (Auto) 65.6 Lymphocytes (%) (Auto) 21.9 Monocytes (%) (Auto) 9.6 Eosinophils (%) (Auto) 2.6 Basophils (%) (Auto) 0.3 Neutrophils # (Auto) 6.7 Lymphocytes # (Auto) 2.2 Monocytes # (Auto) 1.0 Eosinophils # (Auto) 0.3 Basophils # (Auto) 0.0 CBC Comment AUTO DIFF Differential Comment AUTO DIFF CONFIRMED Jey Bush PhD Apr 20, 2017 18:40
[2017-04-20] MEDS: DEXT 5%-NACL 0.9% 1000 ML INJ 1,000 ML IV SCH (23:01)
[2017-04-21 00:30] VITALS: BP 152/89; PULSE 63; RESP 20; TEMP 96.5; O2SAT 94
[2017-04-21 04:40] VITALS: BP 174/85; PULSE 70; RESP 19; TEMP 97.4; O2SAT 96
[2017-04-21] MEDS: DEXT 5%-NACL 0.9% 1000 ML INJ 1,000 ML IV SCH (04:59)
[2017-04-21] MEDS: LEVOTHYROXINE SODIUM 100 MCG VIAL IV PUSH SCH (05:43)
[2017-04-21] MEDS: INSULIN ASPART SUPPLEMENTAL SCALE SQ SCH (06:33)
[2017-04-21] MEDS: DOCUSATE SODIUM 50 MG/SENNA 8.6 MG TAB PO SCH (07:54)
[2017-04-21] MEDS: SODIUM CHLORIDE 0.9% FLUSH 10 ML FLUSH IV FLUSH SCH (07:54)
[2017-04-21] MEDS: LORazepam 2 MG/ML VIAL IV PUSH SCH (07:54)
[2017-04-21] MEDS: PHENYTOIN INJ 100 MG/2 ML VIAL IV SCH (07:54)
[2017-04-21 08:00] VITALS: BP 155/87; PULSE 66; PULSE 76; RESP 17; TEMP 96.4; O2SAT 95
[2017-04-21 10:30] VITALS: BP 140/93; PULSE 89; RESP 18; TEMP 95.7; O2SAT 95
== END 2017-04-21 11:07 | DRG 65 ==
LOC: NEPC 02:20 → NEDA 04:28 → N06B 05:45 → N06A 04-18 20:24
PROVIDERS: ADMIT Family Medicine; ATTEND Family Medicine
DX: I63.533 Cerebral infarction due to unspecified occlusion or stenosis of bilateral posterior cerebral arteries (principal); I69.354 Hemiplegia and hemiparesis following cerebral infarction affecting left non-dominant side; J44.9 Chronic obstructive pulmonary disease, unspecified; I48.2 Chronic atrial fibrillation; I10 Essential (primary) hypertension; G40.909 Epilepsy, unspecified, not intractable, without status epilepticus; F32.9 Major depressive disorder, single episode, unspecified; E03.9 Hypothyroidism, unspecified; R47.81 Slurred speech; R29.810 Facial weakness; H54.0 Blindness, both eyes; E78.5 Hyperlipidemia, unspecified; I25.10 Atherosclerotic heart disease of native coronary artery without angina pectoris; N40.0 Benign prostatic hyperplasia without lower urinary tract symptoms; K59.09 Other constipation; F10.21 Alcohol dependence, in remission; T50.8X5A Adverse effect of diagnostic agents, initial encounter; I65.21 Occlusion and stenosis of right carotid artery; R29.710 NIHSS score 10; Z87.891 Personal history of nicotine dependence; Z79.01 Long term (current) use of anticoagulants; I25.2 Old myocardial infarction; N28.9 Disorder of kidney and ureter, unspecified; Z95.1 Presence of aortocoronary bypass graft; Z95.5 Presence of coronary angioplasty implant and graft; F41.9 Anxiety disorder, unspecified
CPT/HCPCS: 70450; 70544; 70548; 70551; 71010; 76937; 80048; 80053; 80061; 80177; 80185; 81001; 82550; 82948; 83036; 83880; 84443; 84484; 85025; 85610; 85730; 93005; 93306; 93880; A9579; J1165; J1200; J1953; J2060; J2930; J7042

== ENCOUNTER 2017-04-22 08:14 | Inpatient (IN) | payer MEDICARE, OTHER ==
[~2017-04-22] VITALS: Ht 172.7 cm; Wt 97.7 kg
[2017-04-22] VITALS (19 sets, daily range): BP systolic 135–210; BP diastolic 75–109; PULSE 64–110; RESP 12–24; TEMP 98.4–103.9; O2SAT 95–100
[~2017-04-22 08:14] MED LIST changes: -1-ME1LIQ PO; +ACET325C PO; +AMLO10TA2 PO; -ATOR20TA PO; +BAZACRE TP; -BISA10SU PR; +BISA10SU24 RECTAL; -DILA100C PO; -LEVE500 PO; +LEVE500T8 PO; -LEVO.05 PO; +LEVO75TA3 PO; +LISI-515 PO; +LORA-373 PO; -LORA0.5T PO; -METO25 PO; -MILKSUS5 PO; +MULT-182 PO; -PARO10TA PO; +PHEN125S PO; +POTA-163 PO; -POTA20PA PO; -PRIN10TA PO; -PROM25TA5 PO; +TAMS0.4C4 PO; -TAMS0.4C67 PO; +TOPR100T PO; -WARF1TAB PO; +WARF4TAB52 PO
[2017-04-22] MEDS ORDERED: SODIUM CHLOR 0.9% 1000 ML INJ 1,000 ML IV SCH (08:24)
[2017-04-22] MEDS ORDERED: SODIUM CHLORIDE 0.9% FLUSH 5 ML FLUSH IV FLUSH PRN (08:30)
--- NOTE | 2017-04-22 08:32 | PD ---
HPI Chief Complaint: Altered Mental Status Time Seen by Provider: 08:24 Travel History International Travel<30 days: No Contact w/Intl Traveler<30days: No Traveled to known affect area: No History of Present Illness HPI The patient is a 66-year-old male who presents to the emergency department via EMS for altered mental status. According to EMS the patient was discharged from [facility] yesterday to a rehabilitation facility. Apparently, the patient left he was able to speak, with some dysarthria, but had a normal GCS. EMS states that the shelter reports the patient is nonverbal today with decreasing mental status. EMS states the patient's GCS was 10 upon arrival. Upon arrival to the emergency department the patient is nonverbal, groans, but does follow simple commands such as squeezing his right hand and moving his right leg. He does not move the left leg or the left upper extremity, but does withdrawal to pain. He is nonverbal, groaning, with slightly increased respiratory rate. EMS states the patient did have a fever of 101 axillary prior to arrival. The patient is unable to provide any information. PFSH Past Medical History Atrial Fibrillation: Yes Depression: Yes High Cholesterol: Yes Chest Pain: Yes COPD: Yes Cerebrovascular Accident: Yes Coronary Artery Disease: Yes Genitourinary: Yes (BPH) Hypertension: Yes Myocardial Infarction: Yes Renal Failure: Yes (INSUFFICIENCY) Seizures: Yes Thyroid Disease: Yes Past Surgical History Abdominal Aneurysm Repair: Yes Coronary Artery Bypass Graft: Yes (X4 ) Social History Alcohol Use: No (H/O ALCOHOLISM) Tobacco Use: Yes (3 CIGARETTES DAILY) Substance Use: No Allergies-Medications (Allergen,Severity, Reaction): Coded Allergies: Contrast Media (Verified Allergy, Severe, Rash, 04/22/17) Reported Meds & Prescriptions Reported Meds & Active Scripts Active Toprol XL (Metoprolol Succinate) 100 Mg Tab 100 Mg PO DAILY hold for bp less than 110/60 Lorazepam 0.5 Mg Tab 0.5 Mg PO TID Reported Tamsulosin (Tamsulosin HCl) 0.4 Mg Cap 0.8 Mg PO HS Levothyroxine (Levothyroxine Sodium) 75 Mcg Tab 75 Mcg PO DAILY Levetiracetam 500 Mg Tab 500 Mg PO BID Potassium Chloride ER (Potassium Chloride) 20 Meq Tab 20 Meq PO DAILY Isosorbide Mononitrate ER (Isosorbide Mononitrate) 30 Mg Michael 30 Mg PO BID Acetaminophen 325 Mg Capsule 650 Mg PO Q4HR PRN Lisinopril 20 Mg Tab 20 Mg PO DAILY Phenytoin Liq (Phenytoin) 125 Mg/5 Ml Heidy 100 Mg PO BID Phenytoin Liq (Phenytoin) 125 Mg/5 Ml Heidy 200 Mg PO HS Warfarin 1 Mg Tab 1 Mg PO DAILY Amlodipine (Amlodipine Besylate) 10 Mg Tab 10 Mg PO DAILY Josh Multivitamin with Mineral (Multivitamin with Minerals) 1 Each Tablet 1 Tab PO DAILY Bisacodyl Laxative Supp (Bisacodyl) 10 Mg Supp 10 Mg RECTAL DAILY PRN Carlos A Protect (Skin Protectants, Misc.) 1 Cre Cre Unknown Dose TP TID Review of Systems ROS Limitations: Clinical Condition, Altered Mental Status Except as stated in HPI: all other systems reviewed are Neg General / Constitutional: Positive: Fever Neurologic: Positive: Change in Mentation Physical Exam Exam Limitations: Clinical Condition, Altered Mental Status Narrative GENERAL: Lethargic, eyes closed, withdrawals to pain. Groans but nonverbal. SKIN: Focused skin assessment warm/dry. Warm to the touch. HEAD: Atraumatic. Normocephalic. EYES: Pupils equal and round. Pupils are 2 mm bilateral. Slight disconjugate gaze. ENT: No nasal bleeding or discharge. Dry mucous membranes. NECK: Trachea midline. No JVD. CARDIOVASCULAR: Regular rate and rhythm. No murmur appreciated. Heart rate in the 80s. RESPIRATORY: Tachypnea with a respiratory rate of 24. Diminished breath sounds with rhonchi in the right base. GASTROINTESTINAL: Abdomen soft, non-tender, nondistended. No rebound tenderness. Genitourinary: Noncircumcised phallus. No visible drainage or bleeding at the meatus. Back: No visible sacral decubitus ulcers. MUSCULOSKELETAL: Contractures of the left hand noted. Mild edema of the right forearm. NEUROLOGICAL: Lethargic, eyes closed, withdrawals to pain. Squeeze his the right hand on command and moves the right foot on command, will cross the left leg over the right leg and withdrawal the left lower extremity to pain. Does not withdraw the left upper extremity to pain. Groans. Does not answer questions in regards to the person, place, month, or year. PSYCHIATRIC: Unable to assess. Data Data Last Documented VS Vital Signs Date Time Temp Pulse Resp B/P Pulse Ox O2 Delivery O2 Flow Rate FiO2 04/22/17 09:55 74 24 210/96 98 Nasal Cannula 2 04/22/17 08:45 98.4 Orders Electrocardiogram (04/22/17 08:24) Complete Blood Count With Diff (04/22/17 08:24) Comprehensive Metabolic Panel (04/22/17 08:24) Creatine Kinase (Cpk) (04/22/17 08:24) Prothrombin Time / Inr (Pt) (04/22/17 08:24) Act Partial Throm Time (Ptt) (04/22/17 08:24) Troponin I (04/22/17 08:24) Thyroid Stimulating Hormone (04/22/17 08:24) Urinalysis - C+S If Indicated (04/22/17 08:24) Lactic Acid Sepsis Protocol (04/22/17 08:24) Blood Culture (04/22/17 08:24) Chest, Single Ap (04/22/17 08:24) Ct Brain W/O Iv Contrast(Rout) (04/22/17 08:24) Blood Glucose (04/22/17 08:24) Ecg Monitoring (04/22/17 08:24) Iv Access Insert/Monitor (04/22/17 08:24) Cath For Specimen (04/22/17 08:24) Oximetry (04/22/17 08:24) Sodium Chloride 0.9% Flush (Ns Flush) (04/22/17 08:30) Sodium Chlor 0.9% 1000 Ml Inj (Ns 1000 M (04/22/17 08:24) Phenytoin (Dilantin) (04/22/17 08:24) Labetalol Inj (Trandate Inj) (04/22/17 09:00) Enalaprilat Inj (Vasotec Inj) (04/22/17 09:45) Labetalol Inj (Trandate Inj) (04/22/17 10:45) Admit Order (Ed Use Only) (04/22/17 10:53) Labs Laboratory Tests Test 04/22/17 04/22/17 08:50 09:20 White Blood Count 9.6 TH/MM3 Red Blood Count 5.62 MIL/MM3 Hemoglobin 16.9 GM/DL Hematocrit 48.5 % Mean Corpuscular Volume 86.2 FL Mean Corpuscular Hemoglobin 30.0 PG Mean Corpuscular Hemoglobin 34.8 % Concent Red Cell Distribution Width 13.2 % Platelet Count 234 TH/MM3 Mean Platelet Volume 6.4 FL Neutrophils (%) (Auto) 79.4 % Lymphocytes (%) (Auto) 11.2 % Monocytes (%) (Auto) 8.4 % Eosinophils (%) (Auto) 0.5 % Basophils (%) (Auto) 0.5 % Neutrophils # (Auto) 7.6 TH/MM3 Lymphocytes # (Auto) 1.1 TH/MM3 Monocytes # (Auto) 0.8 TH/MM3 Eosinophils # (Auto) 0.0 TH/MM3 Basophils # (Auto) 0.0 TH/MM3 CBC Comment DIFF FINAL Differential Comment Prothrombin Time 15.0 SEC Prothromb Time International 1.3 RATIO Ratio Activated Partial 28.7 SEC Thromboplast Time Sodium Level 133 MEQ/L Potassium Level 3.7 MEQ/L Chloride Level 98 MEQ/L Carbon Dioxide Level 25.7 MEQ/L Anion Gap 9 MEQ/L Blood Urea Nitrogen 14 MG/DL Creatinine 1.11 MG/DL Estimat Glomerular Filtration 66 ML/MIN Rate Random Glucose 104 MG/DL Lactic Acid Level 1.7 mmol/L Calcium Level 8.3 MG/DL Total Bilirubin 0.7 MG/DL Aspartate Amino Transf 32 U/L (AST/SGOT) Alanine Aminotransferase 32 U/L (ALT/SGPT) Alkaline Phosphatase 110 U/L Total Creatine Kinase 79 U/L Troponin I LESS THAN 0.02 NG/ML Total Protein 7.3 GM/DL Albumin 3.6 GM/DL Thyroid Stimulating Hormone 2.340 uIU/ML 3rd Gen Phenytoin (Dilantin) Level 6.4 MCG/ML Urine Color YELLOW Urine Turbidity CLEAR Urine pH 6.0 Urine Specific [place] 1.030 Urine Protein 30 mg/dL Urine Glucose (UA) NEG mg/dL Urine Ketones 40 mg/dL Urine Occult Blood NEG Urine Nitrite NEG Urine Bilirubin NEG Urine Urobilinogen 2.0 MG/DL Urine Leukocyte Esterase TRACE Urine RBC 2 /hpf Urine WBC 3 /hpf Urine Transitional Epithelial <1 /hpf Cells Urine Mucus FEW /lpf Microscopic Urinalysis Comment CATH-CULT NOT IND MDM Medical Decision Making Medical Screen Exam Complete: Yes Emergency Medical Condition: Yes Medical Record Reviewed: Yes Interpretation(s) EKG reveals normal sinus rhythm with a rate of 83. Q wave noted in lead 2, 3, and aVF. Inverted T waves noted in lead V3, V4, V5, and V6. Last Impressions Head CT 04/22/17823 Signed Impressions: Service Date/Time: Saturday, April 22, 2017 08:55 - CONCLUSION: Stable noncontrast head CT with cytotoxic edema in the occipital lobes bilaterally and in the right cerebellum. There has been no interval hemorrhage or herniation. Rodney Romano MD Chest X-Ray 04/22/17823 Signed Impressions: Service Date/Time: Saturday, April 22, 2017 08:31 - CONCLUSION: Underinflation with atelectasis versus airspace consolidation at the left lung base. Rodney Romano MD Laboratory Tests Test 04/22/17 04/22/17 08:50 09:20 White Blood Count 9.6 TH/MM3 Red Blood Count 5.62 MIL/MM3 Hemoglobin 16.9 GM/DL Hematocrit 48.5 % Mean Corpuscular Volume 86.2 FL Mean Corpuscular Hemoglobin 30.0 PG Mean Corpuscular Hemoglobin 34.8 % Concent Red Cell Distribution Width 13.2 % Platelet Count 234 TH/MM3 Mean Platelet Volume 6.4 FL Neutrophils (%) (Auto) 79.4 % Lymphocytes (%) (Auto) 11.2 % Monocytes (%) (Auto) 8.4 % Eosinophils (%) (Auto) 0.5 % Basophils (%) (Auto) 0.5 % Neutrophils # (Auto) 7.6 TH/MM3 Lymphocytes # (Auto) 1.1 TH/MM3 Monocytes # (Auto) 0.8 TH/MM3 Eosinophils # (Auto) 0.0 TH/MM3 Basophils # (Auto) 0.0 TH/MM3 CBC Comment DIFF FINAL Differential Comment Prothrombin Time 15.0 SEC Prothromb Time International 1.3 RATIO Ratio Activated Partial 28.7 SEC Thromboplast Time Sodium Level 133 MEQ/L Potassium Level 3.7 MEQ/L Chloride Level 98 MEQ/L Carbon Dioxide Level 25.7 MEQ/L Anion Gap 9 MEQ/L Blood Urea Nitrogen 14 MG/DL Creatinine 1.11 MG/DL Estimat Glomerular Filtration 66 ML/MIN Rate Random Glucose 104 MG/DL Lactic Acid Level 1.7 mmol/L Calcium Level 8.3 MG/DL Total Bilirubin 0.7 MG/DL Aspartate Amino Transf 32 U/L (AST/SGOT) Alanine Aminotransferase 32 U/L (ALT/SGPT) Alkaline Phosphatase 110 U/L Total Creatine Kinase 79 U/L Troponin I LESS THAN 0.02 NG/ML Total Protein 7.3 GM/DL Albumin 3.6 GM/DL Thyroid Stimulating Hormone 2.340 uIU/ML 3rd Gen Phenytoin (Dilantin) Level 6.4 MCG/ML Urine Color YELLOW Urine Turbidity CLEAR Urine pH 6.0 Urine Specific [place] 1.030 Urine Protein 30 mg/dL Urine Glucose (UA) NEG mg/dL Urine Ketones 40 mg/dL Urine Occult Blood NEG Urine Nitrite NEG Urine Bilirubin NEG Urine Urobilinogen 2.0 MG/DL Urine Leukocyte Esterase TRACE Urine RBC 2 /hpf Urine WBC 3 /hpf Urine Transitional Epithelial <1 /hpf Cells Urine Mucus FEW /lpf Microscopic Urinalysis Comment CATH-CULT NOT IND Differential Diagnosis Differential diagnosis includes intracranial hemorrhage, hemorrhagic conversion , pneumonia, UTI, sepsis, supratherapeutic Dilantin level, hyponatremia, delirium, encephalitis, meningitis. Narrative Course IV was established, labs are drawn and sent, and the patient was placed on cardiac telemetry monitoring and continuous pulse oximetry monitoring. EKG was ordered and interpreted. Chest x-ray was obtained. Stat CT of the brain was obtained. The patient's head of bed was placed up at 30. Blood cultures and lactic acid were sent to lab. Rectal temperature was performed, 98.4. The patient's blood pressure was 205/109, therefore, the patient was a administered labetalol 10 mg intravenously. Chest x-ray reveals underinflation with atelectasis versus airspace consolidation at the left lung base. CT of the brain reveals old infarct, stable, no visible hemorrhagic conversion. INR is subtherapeutic at 1.3. Sodium is minimally low at 133. Lactic acid is normal at 1.7. White count and hemoglobin are unremarkable. Patient's blood pressure continued be elevated with a systolic in the 190s and diastolic in the 90s, therefore, patient was administered Vasotec 1.25 mg intravenously. The patient' s blood pressure continued be elevated, therefore, he was administered labetalol 20 mg intravenously. Dilantin level is subtherapeutic at 6.4. Troponin and TSH are within normal limits. UA reveals 40 ketones, no evidence of infection. The patient does appear to have slightly decreased mental status compared to EMR reports by PT and Dr. Bush, may be medication induced versus hypertensive emergency. Therefore, a call was placed to the patient's primary physician, Dr. Cerda, at 9:53 AM. [facility]. Cerda, therefore, I was unable to speak with Dr. Cerda directly. Therefore , patient will be admitted to see if the patient's altered mental status improves. The patient will need admission to CICU as he will need IV medications for blood pressure control until he is more awake and alert and able to take his oral medications. Procedures Procedure Narrative An ultrasound-guided IV was placed in the right upper extremity. I placed a 20- gauge, 1.88 inch ultrasound-guided IV in the right upper extremity using a linear probe. There was good blood return and the IV flowed easily. There was no obvious complications. The patient tolerated the procedure without difficulty. Physician Communication Physician Communication [facility] Diagnosis Primary Impression: Altered mental status Qualified Code: R41.82 - Altered mental status, unspecified altered mental status type Additional Impression: Hypertensive emergency Admitting Information Admitting Physician Requests: Admit Condition: Stable Martell Mcginnis MD Apr 22, 2017 08:32
--- NOTE | 2017-04-22 08:51 | RADRPT ---
EXAM DATE/TIME: 04/22/2017 08:31 [facility] COMPARISON: CHEST SINGLE AP, April 17, 2017, 2:33. INDICATIONS : Fever. MEDICAL HISTORY : None. SURGICAL HISTORY : CABG. ENCOUNTER: Initial ACUITY: 1 day PAIN SCORE: Non-responsive. LOCATION: chest FINDINGS: Underinflated AP view of the chest demonstrates a normal-sized cardiac silhouette in this patient pos t median sternotomy and CABG. Lungs are underinflated with airspace opacity at the left base. No pleu ral effusion or pneumothorax is identified. Bones and soft tissues demonstrate no acute finding. CONCLUSION: Underinflation with atelectasis versus airspace consolidation at the left lung base. Rodney Romano MD on April 22, 2017 at 8:49 Board Certified Radiologist. This report was verified electronically.
[2017-04-22] MEDS ORDERED: LABETALOL HCL 100 MG/20 ML VIAL IV PUSH ONE ×2 (09:00→10:45)
--- NOTE | 2017-04-22 09:16 | RADRPT ---
EXAM DATE/TIME: 04/22/2017 08:55 [facility] COMPARISON: MRI BRAIN W/O CONTRAST, April 17, 2017, 19:25. CT BRAIN W/O CONTRAST, April 19, 2017, 15:24. INDICATIONS : Altered mental status. RADIATION DOSE: 69.19 CTDIvol (mGy) MEDICAL HISTORY : Cardiovascular disease. Hypertension. Stroke. SURGICAL HISTORY : Cardiac. ENCOUNTER: Initial ACUITY: 1 day PAIN SCALE: 0/10 LOCATION: cranial TECHNIQUE: Multiple contiguous axial images were obtained of the head. Using automated exposure control and adj ustment of the mA and/or kV according to patient size, radiation dose was kept as low as reasonably a chievable to obtain optimal diagnostic quality images. DICOM format image data is available electro nically for review and comparison. FINDINGS: There is a stable large area of cystic encephalomalacia involving the right frontal, parietal, tempor al, and occipital lobes indicating old MCA distribution watershed infarct. There is stable ex vacuo d ilatation of the right lateral ventricle. Additionally, there is a stable low attenuation edema in th e occipital lobes bilaterally and in the right cerebellum there is stable cytotoxic edema. Stable enc ephalomalacia is present within the left cerebellum. No midline shift or herniation is present. No ac criss blood products are visualized. CONCLUSION: Stable noncontrast head CT with cytotoxic edema in the occipital lobes bilaterally and in the right c erebellum. There has been no interval hemorrhage or herniation. Rodney Romano MD on April 22, 2017 at 9:10 Board Certified Radiologist. This report was verified electronically.
[2017-04-22 09:18] LABS: AUTOMATED NEUTROPHIL # 7.6 TH/MM3 (1.8-7.7); BASOPHIL % 0.5 % (0.0-2.0); EOSINOPHIL % 0.5 % (0.0-4.0); HEMATOCRIT 48.5 % (39.0-51.0); HEMO FLAGS DIFF FINAL; LYMPH % 11.2 % (9.0-44.0); LYMPHOCYTE # 1.1 TH/MM3 (1.0-4.8); MEAN CELL VOLUME 86.2 FL (80.0-100.0); MEAN CORPUSCULAR HGB CONC 34.8 % (32.0-36.0); MONO % 8.4 % (0.0-8.0); NEUT % 79.4 % (16.0-70.0); PLATELET COUNT 234 TH/MM3 (150-450); RED BLOOD COUNT 5.62 MIL/MM3 (4.50-5.90); RED CELL DISTRIBUTION WIDTH 13.2 % (11.6-17.2); WHITE BLOOD COUNT 9.6 TH/MM3 (4.0-11.0)
[2017-04-22 09:26] LABS: APTT (PATIENT) 28.7 SEC (24.3-30.1); INTERNATIONAL NORMALIZED RATIO 1.3 RATIO
[2017-04-22 09:30] LABS: ANION GAP 9 MEQ/L (5-15); AST (GOT) 32 U/L (15-37); BICARBONATE 25.7 MEQ/L (21.0-32.0); BLOOD UREA NITROGEN 14 MG/DL (7-18); CHLORIDE 98 MEQ/L (98-107); GLOMERULAR FILTRATION RATE 66 ML/MIN (>89); POTASSIUM 3.7 MEQ/L (3.5-5.1); SODIUM (NA) 133 MEQ/L (136-145)
[2017-04-22 09:31] LABS: ALT (GPT) 32 U/L (12-78)
[2017-04-22 09:40] LABS: ALKALINE PHOSPHATASE 110 U/L (45-117); TOTAL BILIRUBIN ADULT 0.7 MG/DL (0.2-1.0)
[2017-04-22 09:44] LABS: CREATINE KINASE 79 U/L (39-308)
[2017-04-22] MEDS ORDERED: ENALAPRILAT 1.25 MG/ML VIAL IV PUSH ONE (09:45)
[2017-04-22 09:50] LABS: BLOOD, URINE NEG (NEG); GLUCOSE,URINE NEG (NEG); KETONE, URINE 40 mg/dL (NEG); MUCUS URINE FEW /lpf (OCC); NITRITE,URINE NEG (NEG); TRANSITIONAL EPI CELLS, URINE <1 /hpf; URINE COLOR YELLOW (YELLW/STRAW)
[2017-04-22 09:51] LABS: COMMENT (UR) CATH-CULT NOT IND; CULTURE IF INDICATED CATH CULTURE NOT IND
[2017-04-22] MEDS ORDERED: SODIUM CHLORIDE 0.9% FLUSH 10 ML FLUSH IV FLUSH PRN ×2 (11:00→15:45)
[2017-04-22] MEDS ORDERED: hydrALAZINE HCL 20 MG/ML VIAL IV PRN (13:00)
[2017-04-22] MEDS ORDERED: NITROGLYCERIN-DEXTROSE INJ 250 ML IV SCH (13:00)
[2017-04-22] MEDS ORDERED: niCARdipine INJ 25 MG in SODIUM CHLOR 0.9% 250 ML INJ 250 ML IV SCH (13:00)
--- NOTE | 2017-04-22 13:53 | HHI.HP ---
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 It appears the patient was discharged 2 days ago to rehabilitation facility after being admitted for CVA. Baseline on discharge based on EMR states that patient is able to speak with some dysarthria but with normal mentation. While at the [facility], patient became nonverbal today with decreasing mental status, not following commands, groans hence the patient was sent to the hospital. ED evaluation, the patient was nonverbal, groaning, follows simple commands such as squeezing is right handed moving his right leg, but does not move the left leg or left upper extremity. When I saw the patient, the patient does not follow any commands, groaning, staring in space want to touch, poor historian. Review of Systems ROS Limitations: Altered Mental Status, Poor Historian Past Family Social History Past Medical History 1. CVA with left-sided hemiparesis. 2. Atrial fibrillation. 3. Hyperlipidemia. 4. COPD. 5. Coronary artery disease. 6. BPH. 7. Hypertension. 8. Myocardial infarction. 9. Renal insufficiency. 10. Seizures. 11. Hypothyroidism. Past Surgical History Cannot be obtained. Reported Medications Toprol XL (Metoprolol Succinate) 100 Mg Tab 100 Mg PO DAILY hold for bp less than 110/60 Lorazepam 0.5 Mg Tab 0.5 Mg PO TID Tamsulosin (Tamsulosin HCl) 0.4 Mg Cap 0.8 Mg PO HS Levothyroxine (Levothyroxine Sodium) 75 Mcg Tab 75 Mcg PO DAILY Levetiracetam 500 Mg Tab 500 Mg PO BID Potassium Chloride ER (Potassium Chloride) 20 Meq Tab 20 Meq PO DAILY Isosorbide Mononitrate ER (Isosorbide Mononitrate) 30 Mg Michael 30 Mg PO BID Acetaminophen 325 Mg Capsule 650 Mg PO Q4HR PRN Lisinopril 20 Mg Tab 20 Mg PO DAILY Phenytoin Liq (Phenytoin) 125 Mg/5 Ml Heidy 100 Mg PO BID Phenytoin Liq (Phenytoin) 125 Mg/5 Ml Heidy 200 Mg PO HS Warfarin 1 Mg Tab 1 Mg PO DAILY Amlodipine (Amlodipine Besylate) 10 Mg Tab 10 Mg PO DAILY Josh Multivitamin with Mineral (Multivitamin with Minerals) 1 Each Tablet 1 Tab PO DAILY Bisacodyl Laxative Supp (Bisacodyl) 10 Mg Supp 10 Mg RECTAL DAILY PRN Carlos A Protect (Skin Protectants, Misc.) 1 Cre Cre Unknown Dose TP TID Allergies: Coded Allergies: Contrast Media (Verified Allergy, Severe, Rash, 04/22/17) Family History Cannot be obtained. Social History Per EMR, recently stopped smoking, using e- cigarettes. He has history of alcohol abuse for several years. He occasionally drinks alcohol in the [facility]. Physical Exam Vital Signs Vital Signs Date Time Temp Pulse Resp B/P Pulse Ox O2 Delivery O2 Flow Rate FiO2 04/22/17 13:45 100 22 180/92 97 Nasal Cannula 2 04/22/17 13:30 96 22 205/107 97 Nasal Cannula 2 04/22/17 11:49 87 24 198/107 96 Nasal Cannula 2 04/22/17 09:55 74 24 210/96 98 Nasal Cannula 2 04/22/17 09:28 64 22 199/98 98 Nasal Cannula 2 04/22/17 08:45 98.4 78 22 209/102 97 Nasal Cannula 2 04/22/17 08:45 98 Nasal Cannula 2 04/22/17 08:23 84 24 204/109 98 Physical Exam In mild distress, nonverbal. PERRL, reactive to light, pink conjunctiva without injection, anicteric Nose without bleeding, groaning. Supple neck, no masses or thyromegaly, trachea midline Borderline tachycardic, no murmurs. Occasional rhonchi especially on the left base, no wheezing, no crackles. Normal bowel sounds, soft, non-tender, nondistended, no guarding. Trace edema. Awake, not alert, not oriented, does not follow any commands. Did not squeeze his hands for me. Laboratory Laboratory Tests Test 04/22/17 04/22/17 08:50 09:20 White Blood Count 9.6 Red Blood Count 5.62 Hemoglobin 16.9 Hematocrit 48.5 Mean Corpuscular Volume 86.2 Mean Corpuscular Hemoglobin 30.0 Mean Corpuscular Hemoglobin 34.8 Concent Red Cell Distribution Width 13.2 Platelet Count 234 Mean Platelet Volume 6.4 Neutrophils (%) (Auto) 79.4 Lymphocytes (%) (Auto) 11.2 Monocytes (%) (Auto) 8.4 Eosinophils (%) (Auto) 0.5 Basophils (%) (Auto) 0.5 Neutrophils # (Auto) 7.6 Lymphocytes # (Auto) 1.1 Monocytes # (Auto) 0.8 Eosinophils # (Auto) 0.0 Basophils # (Auto) 0.0 CBC Comment DIFF FINAL Differential Comment Prothrombin Time 15.0 Prothromb Time International 1.3 Ratio Activated Partial 28.7 Thromboplast Time Sodium Level 133 Potassium Level 3.7 Chloride Level 98 Carbon Dioxide Level 25.7 Anion Gap 9 Blood Urea Nitrogen 14 Creatinine 1.11 Estimat Glomerular Filtration 66 Rate Random Glucose 104 Lactic Acid Level 1.7 Calcium Level 8.3 Total Bilirubin 0.7 Aspartate Amino Transf 32 (AST/SGOT) Alanine Aminotransferase 32 (ALT/SGPT) Alkaline Phosphatase 110 Total Creatine Kinase 79 Troponin I LESS THAN 0.02 Total Protein 7.3 Albumin 3.6 Thyroid Stimulating Hormone 2.340 3rd Gen Phenytoin (Dilantin) Level 6.4 Urine Color YELLOW Urine Turbidity CLEAR Urine pH 6.0 Urine Specific [place] 1.030 Urine Protein 30 Urine Glucose (UA) NEG Urine Ketones 40 Urine Occult Blood NEG Urine Nitrite NEG Urine Bilirubin NEG Urine Urobilinogen 2.0 Urine Leukocyte Esterase TRACE Urine RBC 2 Urine WBC 3 Urine Transitional Epithelial <1 Cells Urine Mucus FEW Microscopic Urinalysis Comment CATH-CULT NOT IND Date/Time Procedure Status Source Growth 04/22/17 08:50 Aerobic Blood Culture Received Blood Peripheral Pending 04/22/17 08:50 Anaerobic Blood Culture Received Blood Peripheral Pending Result Diagram: 04/22/1750 04/22/17 0850 Imaging Last Impressions Head CT 04/22/17823 Signed Impressions: Service Date/Time: Saturday, April 22, 2017 08:55 - CONCLUSION: Stable noncontrast head CT with cytotoxic edema in the occipital lobes bilaterally and in the right cerebellum. There has been no interval hemorrhage or herniation. Rodney Romano MD Chest X-Ray 04/22/17 0824 Signed Impressions: Service Date/Time: Saturday, April 22, 2017 08:31 - CONCLUSION: Underinflation with atelectasis versus airspace consolidation at the left lung base. Rodney Romano MD Assessment and Plan Problem List: (1) Hypertensive emergency ICD Code: I16.1 Status: Acute (2) Altered mental status ICD Code: R41.82 Status: Acute (3) Posterior circulation stroke ICD Code: I63.50 Status: Acute (4) Aspiration pneumonia ICD Code: J69.0 Status: Acute Assessment and Plan This is a 65-year-old male with history of COPD, coronary artery disease status post ND and recent CVA being readmitted for altered mental status Toxic metabolic encephalopathy-could be secondary to sepsis, versus another stroke vs cytotoxic edema. Check EEG, check MRI of the head, ABG, rule out sepsis, continue antiseizure medications including phenytoin and Keppra. Low phenytoin level, load with fosphenytoin levels. Stop Ativan. Consult neurology. Rule out aspiration pneumonia- no leukocytosis, warm to touch, patient nonverbal and confused, no lactic acidosis. Chest x-ray showed left lower lobe consolidation. Possible aspiration pneumonia. We'll start vancomycin and Zosyn , check sputum culture, recheck CBC tomorrow. Check ABG, oxygen support, DuoNeb 's as needed. Swallow evaluation when patient is more awake. Hypertensive emergency-could be from hyperdynamic circulation, restart all home antihypertensives including Flomax, lisinopril, metoprolol, Norvasc, Imdur, start nitro drip as needed. Hydralazine as needed. Admit to C. Recent CVA- restart Coumadin as above, continue aspirin, blood pressure control. CT scan of the head showed cytotoxic edema and occipital lobes and in the right cerebellum. No interval hemorrhage,? Load steroids, consult neurology. Atrial fibrillation-restart metoprolol, check EKG, CT scan of the head did not show any hemorrhage, restart Coumadin, follow INR. Hypothyroidism-restart Synthroid DVT prophylaxis: Coumadin Addendum: ABG showed uncompensated combined respiratory and metabolic alkalosis , unknown etiology. Consult pharmacy customer care specialist, discussed with Dr. Jones. Code Status Cannot be obtained Physician Certification 2 Midnight Certification Type: Admission for Inpatient Services Order for Inpatient Services The services are ordered in accordance with Medicare regulations or non- Medicare payer requirements, as applicable. In the case of services not specified as inpatient-only, they are appropriately provided as inpatient services in accordance with the 2-midnight benchmark. Estimated LOS (days): 4 days is the estimated time the patient will need to remain in the hospital, assuming treatment plan goals are met and no additional complications. Post-Hospital Plan: SNF Problem Qualifiers (1) Altered mental status: Qualified Code: R41.82 - Altered mental status, unspecified altered mental status type Dana Munoz MD Apr 22, 2017 13:53
[2017-04-22] MEDS ORDERED: LORazepam 0.5 MG TAB PO SCH (14:00)
[2017-04-22] MEDS ORDERED: METOPROLOL SUCCINATE 50 MG EXTENDED RELEASE TAB PO SCH (14:00)
[2017-04-22] MEDS ORDERED: LISINOPRIL 20 MG TAB PO SCH (14:00)
[2017-04-22] MEDS ORDERED: ISOSORBIDE MONONITRATE 30 MG TAB PO SCH (14:30)
[2017-04-22] MEDS ORDERED: FOSPHENYTOIN SODIUM 500 MG PE/10 ML VIAL IV ONE (14:30)
[2017-04-22 14:36] LABS: BLOOD GAS BASE EXCESS -4.6 mmol/L (-2-2); BLOOD GAS CARBOXYHEMOGLOBIN 1.5 % (0-4); BLOOD GAS HCO3 16 mmol/L (22-26); BLOOD GAS METHEMOGLOBIN 0.5 % (0-2); BLOOD GAS O2 HGB SATURATION 94 % (90-100); BLOOD GAS OXYGEN CONTENT 22.7 Vol % (12.0-20.0); BLOOD GAS PCO2 15 mmHg (38-42); BLOOD GAS PO2 62 mmHG (61-120); BLOOD GAS TOTAL HGB 17.2 G/DL (12.0-16.0); TEMP CORR TO 98.6
[2017-04-22 14:37] LABS: CRITICAL VALUE YES; DRAW SITE RT RADIAL; LITER FLOW 2 L/M; NUMBER OF ARTERIAL PUNCTURES 1; OXYGEN DEVICE NASAL CANNULA; STAT YES; ULNAR PULSE PRESENT
[2017-04-22] MEDS ORDERED: ACETAMINOPHEN 650 MG SUPP RECTAL ONE (14:45)
[2017-04-22] MEDS ORDERED: PIPERACIL-TAZO 3.375 GM PREMIX 50 ML IV SCH (15:00)
[2017-04-22] MEDS ORDERED: ROCURONIUM INJ 100 MG/10 ML VIAL IV ONE (15:15)
[2017-04-22] MEDS ORDERED: ETOMIDATE 20 MG/10 ML VIAL IV PUSH ONE (15:15)
[2017-04-22] MEDS ORDERED: SUCCINYLCHOLINE CHLORIDE 200 MG/10 ML VIAL ONE (15:18)
--- NOTE | 2017-04-22 15:35 | PD.CONS ---
[facility] Service Critical Care Medicine Consult Requested By Dr. Munoz Reason for Consult Critical care management Primary Care Physician Unknown History of Present Illness This is a 66-year-old male. Date of admission 04/22/2017. Date of consultation 04/22/2017. Past medical history included recent bilateral MODEL MAKER FIREARMS CVA, right vertebral artery stenosis around 80%, hypertension, dyslipidemia, hypothyroidism, BPH, seizure, chronic kidney disease, COPD ongoing tobaccoism, prior alcoholism and, atrial fibrillation rate controlled currently on a VKA, patient was admitted 04/03 with diagnosis of the bilateral posterior circulation CVA involving the bilateral mid temporal and right mid cerebellar region. MRI brain 04/17 revealed bilateral MODEL MAKER FIREARMS CVA involving the bilateral temporal regions with bilateral cerebellar infarcts. MRA brain revealed absent right sylvian vessel consistent with prior right MCA CVA. 80% right vertebral artery stenosis. Evaluated cardiothoracic surgery and deemed not a surgical candidate. Recommended blood thinner, statin and BP control. Patient is currently residing since 04/20 at [facility] today was noted [facility] at [facility], patient became nonverbal today with decreasing mental status, not following commands, groans hence the patient was sent to the hospital. ED evaluation, the patient was nonverbal, groaning, follows simple commands such as squeezing is right handed moving his right leg, but does not move the left leg or left upper extremity. When hospitalist initially saw the patient, he did not follow any commands, groaning, staring in space and nonfocal , poor historian. CT brain revealed cystic encephalomalacia in writing the right frontal, parietal temporal occipital lobes and MC discharge. Ex vacuo right lateral ventricle. Some edema in the right occipital lobe and cytotoxic edema involving right cerebellar/encephalomalacia left cerebellar region. Later , patient developed tachypnea with an acute respiratory alkalosis with a pH of 7.65, PCO2 15. Bicarbonate 16.. Chest x-ray revealed likely aspiration with the left lower/lingular infiltrate. Patient was intubated using etomidate and rocuronium using an 8.0 ET tube. Patient is also noted to have a temperature 103.9. Follow chest x-ray revealed left-sided infiltrates. Patient to start on cefepime, azithromycin and Flagyl. Primary team started Zosyn and vancomycin. Review of Systems ROS Limitations: Intubated Past Family Social History Allergies: Coded Allergies: Contrast Media (Verified Allergy, Severe, Rash, 04/22/17) Past Medical History Atrial fibrillation on vitamin K antagonist Hypertension Dyslipidemia Coronary artery disease Peripheral vascular disease/arterial disease Hypothyroidism History of right MCA CVA with left-sided weakness BPH Seizure disorder NOS Chronic kidney disease stage II COPD Chronic benzodiazepine use Chronic warfarin use Past Surgical History AAA repair CABG 4 - after which developed right MCA CVA with left hemiparesis, Reported Medications Toprol XL (Metoprolol Succinate) 100 Mg Tab 100 Mg PO DAILY hold for bp less than 110/60 Lorazepam 0.5 Mg Tab 0.5 Mg PO TID Reported Tamsulosin (Tamsulosin HCl) 0.4 Mg Cap 0.8 Mg PO HS Levothyroxine (Levothyroxine Sodium) 75 Mcg Tab 75 Mcg PO DAILY Levetiracetam 500 Mg Tab 500 Mg PO BID Potassium Chloride ER (Potassium Chloride) 20 Meq Tab 20 Meq PO DAILY Isosorbide Mononitrate ER (Isosorbide Mononitrate) 30 Mg Michael 30 Mg PO BID Acetaminophen 325 Mg Capsule 650 Mg PO Q4HR PRN Lisinopril 20 Mg Tab 20 Mg PO DAILY Phenytoin Liq (Phenytoin) 125 Mg/5 Ml Heidy 100 Mg PO BID Phenytoin Liq (Phenytoin) 125 Mg/5 Ml Heidy 200 Mg PO HS Warfarin 1 Mg Tab 1 Mg PO DAILY Amlodipine (Amlodipine Besylate) 10 Mg Tab 10 Mg PO DAILY Josh Multivitamin with Mineral (Multivitamin with Minerals) 1 Each Tablet 1 Tab PO DAILY Bisacodyl Laxative Supp (Bisacodyl) 10 Mg Supp 10 Mg RECTAL DAILY PRN Carlos A Protect (Skin Protectants, Misc.) 1 Cre Cre Unknown Dose TP TID Active Ordered Medications Reviewed in EMR Family History Unable to obtain from past medical records not documented in reviewing 5 H&P's/ family is unavailable. Social History Prior alcoholism history but not current. 3 cigarettes daily. Denies IV drug use. Physical Exam Vital Signs Vital Signs Date Time Temp Pulse Resp B/P Pulse Ox O2 Delivery O2 Flow Rate FiO2 04/22/17 14:25 103.9 110 24 171/84 99 Nasal Cannula 2 04/22/17 13:45 100 22 180/92 97 Nasal Cannula 2 04/22/17 13:30 96 22 205/107 97 Nasal Cannula 2 04/22/17 11:49 87 24 198/107 96 Nasal Cannula 2 04/22/17 09:55 74 24 210/96 98 Nasal Cannula 2 04/22/17 09:28 64 22 199/98 98 Nasal Cannula 2 04/22/17 08:45 98.4 78 22 209/102 97 Nasal Cannula 2 04/22/17 08:45 98 Nasal Cannula 2 04/22/17 08:23 84 24 204/109 98 Physical Exam GENERAL: 66-year-old male, critically ill currently orotracheally intubated SKIN: Warm and dry. Currently denies packs in his axillary and inguinal regions HEAD: Atraumatic. Normocephalic. EYES: Pupils equal and round about 3 mm bilaterally and reactive. No scleral icterus. No injection or drainage. ENT: No nasal bleeding or discharge. Mucous membranes pink and moist. Orotracheally intubated NECK: Trachea midline. No JVD. CARDIOVASCULAR: IRR. S1, S2 no S4. Without murmur RESPIRATORY: Coarse crackles appreciated throughout bilateral lung walker left greater than right. No wheezing GASTROINTESTINAL: Abdomen soft, non-tender, nondistended. Hypoactive bowel sounds appreciated MUSCULOSKELETAL: Extremities trace nonpitting lower extremity edema. No obvious deformities. NEUROLOGICAL: Prior to intubation, left upper and lower extremity weakness strength 1 out of 5 and decreased range of motion. Right upper and lower extremity was withdrawing. Laboratory Laboratory Tests Test 04/22/17 04/22/17 04/22/17 08:50 09:20 14:21 White Blood Count 9.6 Red Blood Count 5.62 Hemoglobin 16.9 Hematocrit 48.5 Mean Corpuscular Volume 86.2 Mean Corpuscular Hemoglobin 30.0 Mean Corpuscular Hemoglobin 34.8 Concent Red Cell Distribution Width 13.2 Platelet Count 234 Mean Platelet Volume 6.4 Neutrophils (%) (Auto) 79.4 Lymphocytes (%) (Auto) 11.2 Monocytes (%) (Auto) 8.4 Eosinophils (%) (Auto) 0.5 Basophils (%) (Auto) 0.5 Neutrophils # (Auto) 7.6 Lymphocytes # (Auto) 1.1 Monocytes # (Auto) 0.8 Eosinophils # (Auto) 0.0 Basophils # (Auto) 0.0 CBC Comment DIFF FINAL Differential Comment Prothrombin Time 15.0 Prothromb Time International 1.3 Ratio Activated Partial 28.7 Thromboplast Time Sodium Level 133 Potassium Level 3.7 Chloride Level 98 Carbon Dioxide Level 25.7 Anion Gap 9 Blood Urea Nitrogen 14 Creatinine 1.11 Estimat Glomerular Filtration 66 Rate Random Glucose 104 Lactic Acid Level 1.7 Calcium Level 8.3 Total Bilirubin 0.7 Aspartate Amino Transf 32 (AST/SGOT) Alanine Aminotransferase 32 (ALT/SGPT) Alkaline Phosphatase 110 Total Creatine Kinase 79 Troponin I LESS THAN 0.02 Total Protein 7.3 Albumin 3.6 Thyroid Stimulating Hormone 2.340 3rd Gen Phenytoin (Dilantin) Level 6.4 Urine Color YELLOW Urine Turbidity CLEAR Urine pH 6.0 Urine Specific [place] 1.030 Urine Protein 30 Urine Glucose (UA) NEG Urine Ketones 40 Urine Occult Blood NEG Urine Nitrite NEG Urine Bilirubin NEG Urine Urobilinogen 2.0 Urine Leukocyte Esterase TRACE Urine RBC 2 Urine WBC 3 Urine Transitional Epithelial <1 Cells Urine Mucus FEW Microscopic Urinalysis Comment CATH-CULT NOT IND Blood Gas Puncture Site RT RADIAL Blood Gas Patient Temperature 98.6 Blood Gas HCO3 16 Blood Gas Base Excess -4.6 Blood Gas Oxygen Saturation 94 Arterial Blood pH 7.65 Arterial Blood Partial 15 Pressure CO2 Arterial Blood Partial 62 Pressure O2 Arterial Blood Oxygen Content 22.7 Arterial Blood 1.5 Carboxyhemoglobin Arterial Blood Methemoglobin 0.5 Blood Gas Hemoglobin 17.2 Oxygen Delivery Device NASAL CANNULA Blood Gas Liter Flow 2 Date/Time Procedure Status Source Growth 04/22/17 08:50 Aerobic Blood Culture Received Blood Peripheral Pending 04/22/17 08:50 Anaerobic Blood Culture Received Blood Peripheral Pending Result Diagram: 04/22/17 0850 04/22/17 0850 Imaging Last Impressions Head CT 04/22/17823 Signed Impressions: Service Date/Time: Saturday, April 22, 2017 08:55 - CONCLUSION: Stable noncontrast head CT with cytotoxic edema in the occipital lobes bilaterally and in the right cerebellum. There has been no interval hemorrhage or herniation. Rodney Romano MD Chest X-Ray 04/22/17823 Signed Impressions: Service Date/Time: Saturday, April 22, 2017 08:31 - CONCLUSION: Underinflation with atelectasis versus airspace consolidation at the left lung base. Rodney Romano MD Assessment and Plan Assessment and Plan Neuro/Psych: History of recent bilateral MODEL MAKER FIREARMS CVA History of right MCA CVA with left upper and lower extremity hemiparesis status post CABG 4 Chronic lorazepam use Currently propofol/fentanyl drips for sedation/analgesia while intubated Goal of RA SS -[address] brain revealed cystic encephalomalacia involving the right frontal/parietal/ temporal occipital lobes. MCA dissipation. Ex vacuo right lateral ventricle. Cytotoxic edema in the right occipital. Stable edema in the right cerebellar/ left cerebellar regions. Neurologist been consulted MRI/A brain ordered EEG ordered PA-C and lorazepam 0.5 mill grams by mouth 3 times a day for anxiety Previously levetiracetam 500 mg twice a day for seizure disorder. Continue to check Keppra On phenytoin 100 mg twice a day/200 mg at night. Continue. Dilantin level6.4 this facility. CV: Hypertension Dyslipidemia Coronary artery disease History of CABG 4 Chronic systolic heart failure Currently on amlodipine 10 mill grams by mouth daily/lisinopril 10 mg twice a day metoprolol 12.5 mg every 8 hours. On metoprolol 100 mg daily at home along with lisinopril 20 mg daily at home. As needed labetalol/hydralazine and Nitropaste for blood pressure control Recent 2-D echocardiogram 04/03 revealed EF 45-50%. Mild LVH. Mild TR. PAP 25 mmHg Follow-up CPK ordered Resp: Acute hypercapnic respiratory failure - acute respiratory alkalosis COPD PRVC 12/500/1.2/5/100 Ventilator bundle Albuterol/Atrovent nebs every 6 hours with albuterol nebs every 2 hours when necessary breakthrough Follow-up ABG/chest x-ray post intubation and adjust ventilator accordingly GI: OG tube to LIWS Pantoprazole 40 mg IV daily for GI prophylaxis Docusate sodium/senna twice a day for bowel regimen : BPH Resume tamsulosin 0.8 mg by mouth at bedtime Dunlap catheter has been placed for accurate I's and O's in a critically ill patient Endo: Hypothyroidism Continue Levoxyl 75 mcg by tube daily. Follow-up on TSH Sliding-scale insulin with NovoLog with Accu-Cheks every 6 hours to maintain euglycemia/low regimen Renal: Chronic kidney disease stage II Accurate I's and O's Monitor urine output Follow-up CBC in a.m. Heme: Chronic vitamin K antagonist usage History of skin cancer Previous warfarin 1 mg by mouth daily. INR currently 1.3. Consider IV Lovenox versus heparin drip and interim total therapeutic ID: Possible aspiration pneumonia With fevers will draw blood cultures 2, UA and sputum. Cefepime/azithromycin/metronidazole and vancomycin started FEN: Hyponatremia Currently normal saline at 84 cc an hour. Replace electrolytes as clinically indicated per ICU electrolyte protocol MSK: PT/OT evaluate and treat Access - Utilize peripheral IV. Central line if indicated Prophylaxis - GI - Protonix - DVT - SCD/holding anticoagulation until seen by neurology. Critical Care: The total critical care time was 35 minutes. Time to perform other separately billable procedures was not included in the critical care time. Addendum Noted MRI brain revealed bilateral posterior pontine CVA with MRA brain revealed bilateral vertebrals and posterior circulation with quite diminished flow. Discussed with Dr. Bush/urology. Initiate heparin drip due to time of onset of this likely CVA. He will evaluate patient Code Status Full code Discussed Condition With Mcginnis/ED physician. Healthcare proxy is his brother Mr. Blanco. Care plan discussed and all questions answered. Dru Jones MD Apr 22, 2017 15:35
[2017-04-22] MEDS ORDERED: ONDANSETRON HCL 4 MG/2 ML VIAL IV PRN (15:45)
[2017-04-22] MEDS ORDERED: POTASSIUM CHLOR 20 MEQ PREMIX 100 ML IV PRN (15:45)
[2017-04-22] MEDS ORDERED: CEFEPIME INJ 2,000 MG in SODIUM CHLORIDE 0.9% INJ 100 ML IV ONE (15:45)
[2017-04-22] MEDS ORDERED: SODIUM CHLOR 0.9% 1000 ML INJ 1,000 ML IV ONE (15:45)
[2017-04-22] MEDS ORDERED: GLUCAGON 1 MG/ML VIAL OTHER PRN (15:45)
[2017-04-22] MEDS ORDERED: DEXTROSE 50% IN WATER 50 ML VIAL(D50) IV PRN (15:45)
[2017-04-22] MEDS ORDERED: SENNOSIDES 8.6 MG TAB PO PRN (15:45)
[2017-04-22] MEDS ORDERED: POTASSIUM PHOSPHATE MONOBASIC 500 MG TAB PO/TUBE PRN (15:45)
[2017-04-22] MEDS ORDERED: POTASSIUM CHLOR 40 MEQ PREMIX 100 ML IV PRN ×2 (15:45)
[2017-04-22] MEDS ORDERED: PROPOFOL 1000 MG/100 ML INJ 100 ML IV SCH (15:45)
[2017-04-22] MEDS ORDERED: MIDAZOLAM HCL 2 MG/2 ML VIAL IV PRN (15:45)
[2017-04-22] MEDS ORDERED: BISACODYL 10 MG SUPP RECTAL PRN (15:45)
[2017-04-22] MEDS ORDERED: ACETAMINOPHEN 325 MG TAB OG-TUBE PRN (15:45)
[2017-04-22] MEDS ORDERED: POTASSIUM PHOSPHATE MONOBASIC 500 MG TAB PO PRN (15:45)
[2017-04-22] MEDS ORDERED: SODIUM PHOSPHATE INJ 30 MMOL in SODIUM CHLOR 0.9% 250 ML INJ 240 ML IV PRN (15:45)
[2017-04-22] MEDS ORDERED: CHLORHEXIDINE GLUCONATE 2 % 1 PACK (2 CLOTHS) TOP PRN (15:45)
[2017-04-22] MEDS ORDERED: MAGNESIUM OXIDE 400 MG TAB PO PRN (15:45)
[2017-04-22] MEDS ORDERED: RESP: ALBUTEROL 2.5 MG/3 ML NEB (PRN) INH (15:45)
[2017-04-22] MEDS ORDERED: MISCELLANEOUS NURSING INFORMATION XX SCH (15:45)
[2017-04-22] MEDS ORDERED: fentaNYL DRIP 250 ML IV SCH (15:45)
[2017-04-22] MEDS ORDERED: POTASSIUM PHOSPHATE INJ 30 MMOL in SODIUM CHLOR 0.9% 250 ML INJ 250 ML IV PRN (15:45)
[2017-04-22] MEDS ORDERED: POTASSIUM CHLORIDE 25 MEQ EFFERVESCENT TAB PO PRN (15:45)
[2017-04-22] MEDS ORDERED: LACTULOSE SYRUP 20 GM/30 ML CUP PO PRN (15:45)
[2017-04-22] MEDS ORDERED: MAGNESIUM SULFATE INJ 2 GM in SODIUM CHLORIDE 0.9% INJ 96 ML IV PRN (15:45)
[2017-04-22] MEDS ORDERED: MAGNESIUM HYDROXIDE SUSP 30 ML CUP PO PRN (15:45)
[2017-04-22] MEDS ORDERED: AZITHROMYCIN INJ 500 MG in SODIUM CHLOR 0.9% 250 ML INJ 250 ML IV ONE (15:45)
[2017-04-22] MEDS ORDERED: MAGNESIUM SULFATE INJ 4 GM in SODIUM CHLORIDE 0.9% INJ 92 ML IV PRN (15:45)
--- NOTE | 2017-04-22 15:52 | RADRPT ---
EXAM DATE/TIME: 04/22/2017 15:27 [facility] COMPARISON: CHEST SINGLE AP, April 22, 2017, 8:31. INDICATIONS : Status post intubation. MEDICAL HISTORY : None. SURGICAL HISTORY : CABG. ENCOUNTER: Subsequent ACUITY: 1 day PAIN SCORE: Non-responsive. LOCATION: chest FINDINGS: Patient is now intubated. Endotracheal tube tip is approximately 5 cm above the les. There is a ne w nasogastric tube that courses into the stomach. Mild infiltrate developing in the left mid and lower lung. There may be a small left pleural effusion as well. I don't see a pneumothorax. CONCLUSION: 1. Appropriate position of the endotracheal tube and nasogastric tube. 2. Mild left base infiltrate and small effusion. Rodney Pennington MD on April 22, 2017 at 15:50 Board Certified Radiologist. This report was verified electronically.
[2017-04-22] MEDS ORDERED: VANCOMYCIN INJ 1,500 MG in SODIUM CHLORID 0.9% 500 ML INJ 500 ML IV SCH (16:00)
[2017-04-22] MEDS: RESP: ALBUTEROL 2.5 MG/IPRATROPIUM 0.5 MG NEB (SCH) INH ×2 (16:00→21:41)
[2017-04-22] MEDS ORDERED: LABETALOL HCL 100 MG/20 ML VIAL IV PUSH PRN (16:00)
[2017-04-22] MEDS ORDERED: hydrALAZINE HCL 20 MG/ML VIAL IV PUSH PRN (16:00)
[2017-04-22] MEDS ORDERED: NITROGLYCERIN 2% OINT 1 GM PACKET TOPICAL PRN (16:00)
[2017-04-22] MEDS ORDERED: ENALAPRILAT 1.25 MG/ML VIAL IV PRN (16:00)
[2017-04-22] MEDS: PROPOFOL 1000 MG/100 ML INJ 100 ML IV SCH ×3 (16:40→22:09)
[2017-04-22] MEDS ORDERED: GADODIAMIDE PF 287 MG/ML 20 ML VIAL (for RAD MRI) IV ONE (17:09)
--- NOTE | 2017-04-22 17:32 | RADRPT ---
EXAM DATE/TIME: 04/22/2017 16:26 [facility] COMPARISON: MRI BRAIN W/O CONTRAST, April 17, 2017, 19:25. CT BRAIN W/O CONTRAST, April 22, 2017, 8:55. INDICATIONS : Altered mental status. MEDICAL HISTORY : Seizures. Hypertension. Chronic obstructive pulmonary disease. SURGICAL HISTORY : CABG Aneurysm ENCOUNTER: Initial ACUITY: 1 day PAIN SCORE: 0/10 LOCATION: cranial TECHNIQUE: Multiplanar, multisequence MRI of the brain was performed without contrast. FINDINGS: Compare April 17. There are evolving infarcts in the posterior circulation bilaterally involving both medial temporal and occipital lobes as well as an evolving infarct in the right cerebellar hemisphere . The previous posterior fossa infarct involving the right cerebellar hemisphere has extended mediall y and now involves the middle cerebellar peduncle and the right side of the caroline extending slightly a cross midline into the left caroline as well. There is a stable remote infarct in the right MCA distribut ion as well. There is hemosiderin deposition in the posterior circulation infarcts, probably some petechial hemorr judson. CONCLUSION: 1. Previous infarct in the right cerebellar hemisphere has extended medially and now involves the rig ht middle cerebellar peduncle and right caroline and extending slightly into the left caroline. The medial te mporal and occipital lobe infarcts are relatively stable. Remote right MCA infarct is stable. Carlos Goyal MD on April 22, 2017 at 17:18 Board Certified Radiologist. This report was verified electronically.
--- NOTE | 2017-04-22 17:33 | RADRPT ---
EXAM DATE/TIME: 04/22/2017 16:26 [facility] COMPARISON: MRI BRAIN W/O CONTRAST, April 22, 2017, 16:26. MRA BRAIN W/O CONTRAST, April 17, 2017, 19:25. INDICATIONS : Seizures. MEDICAL HISTORY : Hypertension. Chronic obstructive pulmonary disease. Seizures. SURGICAL HISTORY : Abdominal aortic aneurysm repair. CABG ENCOUNTER: Sequela ACUITY: 2 weeks PAIN SCORE: 0/10 LOCATION: cranial Please note a normal MRA of the brain does not entirely exclude the possibility of a small aneurysm, nor the possibility of distal intracranial vessel disease. TECHNIQUE: 3D time of flight MRA was performed. Source images, multiplanar STS MIP, and 3D volume MIP reconstru ctions were reviewed. FINDINGS: There is nonfilling currently seen of both vertebral arteries and the bilateral posterior cerebral ar lisa distribution. A short segment of the basilar artery fills, appears to be through the left anteri or, inferior cerebellar artery but the other cerebellar arteries also do not fill.. No acute anterior circulation abnormality. In fact, the partial occlusion of the distal branches of t he right middle cerebral artery has opened partially in the interim. CONCLUSION: 1. Large acute posterior circulation deficit with essential nonfilling of the visualized vertebral ar teries and posterior cerebral arteries. Other than some limited filling of the left anterior, inferio r cerebellar artery, the cerebellar arteries also don't fill. 2. Partially occluded distal right middle cerebral artery branches noted but actually improved modest ly in the interim. No acute anterior circulation abnormality seen. Rodney Pennington MD on April 22, 2017 at 17:23 Board Certified Radiologist. This report was verified electronically.
[2017-04-22 17:40] LABS: BLOOD GAS BASE EXCESS -5.7 mmol/L (-2-2); BLOOD GAS CARBOXYHEMOGLOBIN 1.3 % (0-4); BLOOD GAS HCO3 18 mmol/L (22-26); BLOOD GAS O2 HGB SATURATION 96 % (90-100); BLOOD GAS OXYGEN CONTENT 22.3 Vol % (12.0-20.0); BLOOD GAS PCO2 30 mmHg (38-42); BLOOD GAS PO2 116 mmHg (61-120); BLOOD GAS TOTAL HGB 16.4 G/DL (12.0-16.0); CRITICAL VALUE NO; OXYGEN DEVICE VENTILATOR; TEMP CORR TO 98.6
[2017-04-22 17:41] LABS: DRAW SITE RT RADIAL; FIO2 40 %; NUMBER OF ARTERIAL PUNCTURES 1; STAT NO; ULNAR PULSE PRESENT; VENT SETTINGS PRVC/AC 500/12
--- NOTE | 2017-04-22 17:42 | RADRPT ---
EXAM DATE/TIME: 04/22/2017 16:26 [facility] COMPARISON: MRI BRAIN W/O CONTRAST, April 22, 2017, 16:26. MRA BRAIN W/O CONTRAST, April 22, 2017, 16:26. MRA CAROTIDS W CONTRAST, April 17, 2017, 19:25. MRA BRAIN W/O CONTRAST, April 17, 2017, 19:25. INDICATIONS : Stroke. Unresponsive. CONTRAST: 20 cc Omniscan (gadodiamide) IV MEDICAL HISTORY : Seizures. Hypertension. Chronic obstructive pulmonary disease. SURGICAL HISTORY : CABG Abdominal aortic aneurysm repair. ENCOUNTER: Sequela ACUITY: 2 weeks PAIN SCORE: 0/10 LOCATION: cranial Percent stenosis is calculated using the diameter of the stenotic region over the diameter of the nor mal distal internal carotid artery. TECHNIQUE: Bolus infused MRA of the extracranial circulation was performed using a neurovascular coil. Post pro cessing was performed including rotating subvolume maximum intensity projections of each carotid jozef ry, rotating full volume maximum intensity projections of both carotid arteries, sagittal and coronal sliding thin slab reformations of each carotid artery, and left oblique sliding thin slab reformatio n through the aortic arch to include the origin of the arch branch vessels. FINDINGS: Just proximal to the skull base is evidence of non-filling of the right vertebral artery. There is no nfilling of the left vertebral artery more distally, just after it gives off the anterior, inferior c erebellar artery branch. Anterior circulation intact. Mild atherosclerosis is seen of the proximal right and left internal car otid arteries without significant narrowing. CONCLUSION: Severely compromised posterior circulation with acutely thrombosed bilateral vertebral arteries as de scribed above. No acute anterior circulation abnormality. Rodney Pennington MD on April 22, 2017 at 17:35 Board Certified Radiologist. This report was verified electronically.
[2017-04-22] MEDS: SODIUM CHLOR 0.9% 1000 ML INJ 1,000 ML IV SCH (17:54)
[2017-04-22] MEDS: metroNIDAZOLE 500 MG INJ 100 ML IV SCH (17:55)
[2017-04-22] MEDS: CEFEPIME INJ 2,000 MG in SODIUM CHLORIDE 0.9% INJ 100 ML IV SCH (17:55)
[2017-04-22] MEDS: VANCOMYCIN INJ 1,500 MG in SODIUM CHLORID 0.9% 500 ML INJ 500 ML IV SCH (17:56)
[2017-04-22] MEDS: AZITHROMYCIN INJ 500 MG in SODIUM CHLOR 0.9% 250 ML INJ 250 ML IV SCH (17:57)
[2017-04-22] MEDS: INSULIN ASPART SUPPLEMENTAL SCALE SQ SCH (17:57)
[2017-04-22] MEDS: HEPARIN-D5W INJ 250 ML IV SCH (18:33)
[2017-04-22 19:33] LABS: HEMATOCRIT 44.1 % (39.0-51.0); MEAN CELL VOLUME 86.2 FL (80.0-100.0); MEAN CORPUSCULAR HEMOGLOBIN 30.4 PG (27.0-34.0); MEAN CORPUSCULAR HGB CONC 35.3 % (32.0-36.0); PLATELET COUNT 208 TH/MM3 (150-450); RED BLOOD COUNT 5.12 MIL/MM3 (4.50-5.90); REVIEW FLAG FINAL; WHITE BLOOD COUNT 19.5 TH/MM3 (4.0-11.0)
[2017-04-22 19:36] LABS: APTT (PATIENT) 35.7 SEC (24.3-30.1); INTERNATIONAL NORMALIZED RATIO 1.5 RATIO; PROTHROMBIN TIME - PATIENT 17.1 SEC (9.8-11.6)
--- NOTE | 2017-04-22 20:25 | MB ---
cc: VIVEK GUADARRAMA M.D. DATE OF CONSULTATION: 04/22/2017. REASON FOR CONSULTATION: Stroke. HISTORY OF PRESENT ILLNESS: Mr. 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 He was recently admitted with bilateral TRANSPORT DRIVER stroke. He was at [facility] and today became nonverbal with diminished mental status not following any commands. He had a CT of the brain done today showing cytotoxic edema in both occipital lobes bilaterally and the right cerebellum unchanged from previous CT scan of April 17 and April 19. He had an MRI of the brain which showed that the previous infarct in the right cerebellar hemisphere has extended medially involving the right middle cerebellar peduncle and right caroline and also involving the left caroline as well. The medial temporal and occipital lobe infarcts are relatively stable. An MRI of the brain shows a large acute posterior circulation deficit with non-filling of the visualized vertebral arteries and posterior cerebral arteries. The cerebellar arteries do not fill except that the left anterior inferior cerebellar artery. There is a partially occluded distal right middle cerebral artery. He had an MR angiogram of the neck today showing acutely thrombosed bilateral vertebral arteries. NEUROLOGIC EXAMINATION: VITAL SIGNS: Blood pressure 143/77, pulse is 96, respirations 12, temperature 100 degrees. HIGHER CORTICAL FUNCTIONS: He is minimally responsive, does not follow commands. CRANIAL NERVES: He has no extraocular movement to oculocephalic. The pupils are equal and reactive. MOTOR: On motor exam, there is no movement in the upper extremities. His does move both lower extremities briskly. LABORATORY DATA: White count 9600, hemoglobin is 16.9, hematocrit 48%, platelet count of 234,000. His INR is 1.3. PT 15. APTT 28.7. Sodium 133, potassium 3.7, chloride 98, carbon dioxide 25.7, the BUN is 14, creatinine 1.1, GFR is 66. IMPRESSION: Significant posterior circulation stroke with occlusion of bilateral vertebral arteries as well as posterior cerebral arteries and cerebellar arteries. Given the time factor, the patient is out of the window for intervention. He is not a candidate for tPA because of the time factor as well as the recent stroke. RECOMMENDATIONS: Would recommend starting the patient on anticoagulation with IV heparin. MD GHADA Garcia/RADHA /7:01 PM /8:11 PM
[2017-04-22] MEDS: CHLORHEXIDINE 0.12% (ORAL KIT) 15 ML CUP MT SCH (20:38)
[2017-04-22] MEDS: LISINOPRIL 10 MG TAB OG-TUBE SCH (20:39)
[2017-04-22] MEDS: SODIUM CHLORIDE 0.9% FLUSH 10 ML FLUSH IV FLUSH SCH (20:39)
[2017-04-22] MEDS: DOCUSATE SODIUM 50 MG/SENNA 8.6 MG TAB PO SCH (20:40)
[2017-04-22] MEDS: TAMSULOSIN HCL 0.4 MG CAP PO SCH (20:40)
[2017-04-22] MEDS: METOPROLOL TARTRATE 25 MG TAB PO SCH (20:41)
[2017-04-22] MEDS ORDERED: SODIUM CHLORIDE 0.9% FLUSH 10 ML FLUSH IV FLUSH SCH (21:00)
[2017-04-22] MEDS: levETIRAcetam 500 MG TAB PO SCH (21:00)
[2017-04-22] MEDS ORDERED: PHENYTOIN SUSP 100 MG/4 ML CUP PO SCH (21:00)
[2017-04-22] MEDS: PHENYTOIN SUSP 100 MG/4 ML CUP PO SCH (21:20)
[2017-04-22] MEDS ORDERED: PANTOPRAZOLE INJ 80 MG in SODIUM CHLORIDE 0.9% INJ 35 ML IV ONE (21:45)
[2017-04-22] MEDS ORDERED: PANTOPRAZOLE INJ 80 MG in SODIUM CHLORIDE 0.9% INJ 100 ML IV SCH (21:45)
[2017-04-22] MEDS: ISOSORBIDE DINITRATE 10 MG TAB PO SCH (22:00)
[2017-04-23] VITALS (34 sets, daily range): BP systolic 84–190; BP diastolic 51–98; PULSE 49–75; RESP 10–17; TEMP 97.1–98; O2SAT 92–100
[2017-04-23] MEDS: metroNIDAZOLE 500 MG INJ 100 ML IV SCH ×3 (01:19→17:31)
[2017-04-23] MEDS: CEFEPIME INJ 2,000 MG in SODIUM CHLORIDE 0.9% INJ 100 ML IV SCH ×3 (01:19→17:31)
[2017-04-23] MEDS: PROPOFOL 1000 MG/100 ML INJ 100 ML IV SCH ×3 (02:45→10:18)
[2017-04-23] MEDS: RESP: ALBUTEROL 2.5 MG/IPRATROPIUM 0.5 MG NEB (SCH) INH ×4 (03:34→19:26)
[2017-04-23] MEDS: CHLORHEXIDINE GLUCONATE 2 % 1 PACK (2 CLOTHS) TOP SCH (04:00)
[2017-04-23] MEDS: SODIUM CHLOR 0.9% 1000 ML INJ 1,000 ML IV SCH ×2 (04:39→15:41)
[2017-04-23 05:23] LABS: AUTOMATED NEUTROPHIL # 9.3 TH/MM3 (1.8-7.7); BASOPHIL % 0.3 % (0.0-2.0); EOSINOPHIL # 0.2 TH/MM3 (0-0.4); EOSINOPHIL % 1.9 % (0.0-4.0); HEMO FLAGS DIFF FINAL; LYMPH % 13.7 % (9.0-44.0); LYMPHOCYTE # 1.7 TH/MM3 (1.0-4.8); MEAN CELL VOLUME 87.9 FL (80.0-100.0); MEAN CORPUSCULAR HEMOGLOBIN 29.8 PG (27.0-34.0); MEAN CORPUSCULAR HGB CONC 33.9 % (32.0-36.0); MONO % 10.1 % (0.0-8.0); PLATELET COUNT 176 TH/MM3 (150-450); RED BLOOD COUNT 5.12 MIL/MM3 (4.50-5.90); RED CELL DISTRIBUTION WIDTH 13.8 % (11.6-17.2); WHITE BLOOD COUNT 12.5 TH/MM3 (4.0-11.0)
[2017-04-23 05:30] LABS: APTT (PATIENT) 30.1 SEC (24.3-30.1); INTERNATIONAL NORMALIZED RATIO 1.3 RATIO; PROTHROMBIN TIME - PATIENT 14.7 SEC (9.8-11.6)
[2017-04-23] MEDS: METOPROLOL TARTRATE 25 MG TAB PO SCH ×3 (05:34→21:28)
[2017-04-23] MEDS: LEVOTHYROXINE SODIUM 75 MCG TAB PO SCH (05:34)
[2017-04-23] MEDS: INSULIN ASPART SUPPLEMENTAL SCALE SQ SCH ×4 (06:00→17:29)
[2017-04-23 06:05] LABS: BICARBONATE 21.8 MEQ/L (21.0-32.0); CALCIUM-PROTEIN CORRECTED 7.5 MG/DL (8.5-10.1); POTASSIUM 3.3 MEQ/L (3.5-5.1); TOTAL BILIRUBIN ADULT 0.8 MG/DL (0.2-1.0)
[2017-04-23] MEDS: POTASSIUM CHLOR 20 MEQ PREMIX 100 ML IV PRN ×2 (07:10→09:22)
--- NOTE | 2017-04-23 07:57 | HHI.CCPN ---
Subjective Remarks/Hospital Course This is a 66-year-old male. Date of admission 04/22/2017. Date of consultation 04/22/2017. 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 MRI brain 04/17 revealed bilateral TAR DISTRIBUTOR OPERATOR CVA involving the bilateral temporal regions with bilateral cerebellar infarcts. MRA brain revealed absent right sylvian vessel consistent with prior right MCA CVA. 80% right vertebral artery stenosis. Evaluated cardiothoracic surgery and deemed not a surgical candidate. Recommended blood thinner, statin and BP control. Patient is currently residing since 04/20 at [facility] today was noted While at the correction, patient became nonverbal today with decreasing mental status, not following commands, groans hence the patient was sent to the hospital. ED evaluation, the patient was nonverbal, groaning, follows simple commands such as squeezing is right handed moving his right leg, but does not move the left leg or left upper extremity. When hospitalist initially saw the patient, he did not follow any commands, groaning, staring in space and nonfocal , poor historian. CT brain revealed cystic encephalomalacia in writing the right frontal, parietal temporal occipital lobes and MC discharge. Ex vacuo right lateral ventricle. Some edema in the right occipital lobe and cytotoxic edema involving right cerebellar/encephalomalacia left cerebellar region. Later , patient developed tachypnea with an acute respiratory alkalosis with a pH of 7.65, PCO2 15. Bicarbonate 16.. Chest x-ray revealed likely aspiration with the left lower/lingular infiltrate. Patient was intubated using etomidate and rocuronium using an 8.0 ET tube. Patient is also noted to have a temperature 103.9. Follow chest x-ray revealed left-sided infiltrates. Patient to start on cefepime, azithromycin and Flagyl. Primary team started Zosyn and vancomycin. Subjective 04/23: Afebrile. Currently withdrawal/moves bilateral looks and spontaneous. No movement bilateral upper extremity. Pupils react. Positive gag reflex. Incidental coffee-ground emesis overnight so heparin drip held. GI will be consulted for possible EGD as patient will need systematically lysed secondary to posterior circulation strokes/acute thrombosis. Objective Vital Signs Date Time Temp Pulse Resp B/P Pulse Ox O2 Delivery O2 Flow Rate FiO2 04/23/17 07:33 98 35 04/23/17 06:00 60 04/23/17 04:00 97.8 12 161/83 04/22/17 17:20 Ventilator 04/22/17 15:16 2 Intake and Output 04/22/17 04/22/17 04/23/17 08:00 16:00 00:00 Intake Total 1789 ml Output Total 1650 ml Balance 139 ml Result Diagram: 04/23/17 0500 04/23/17 0500 Other Results Microbiology Date/Time Procedure Status Source Growth 04/22/17 08:50 Aerobic Blood Culture Received Blood Peripheral Pending 04/22/17 08:50 Anaerobic Blood Culture Received Blood Peripheral Pending Imaging Last Impressions Head CT 04/22/17823 Signed Impressions: Service Date/Time: Saturday, April 22, 2017 08:55 - CONCLUSION: Stable noncontrast head CT with cytotoxic edema in the occipital lobes bilaterally and in the right cerebellum. There has been no interval hemorrhage or herniation. Rodney Romano MD Chest X-Ray 04/22/17823 Signed Impressions: Service Date/Time: Saturday, April 22, 2017 08:31 - CONCLUSION: Underinflation with atelectasis versus airspace consolidation at the left lung base. Rodney Romano MD Neck Magnetic Resonance Angiography 04/22/17 Signed Impressions: Service Date/Time: Saturday, April 22, 2017 16:26 - CONCLUSION: Severely compromised posterior circulation with acutely thrombosed bilateral vertebral arteries as described above. No acute anterior circulation abnormality. Rodney Pennington MD Head Magnetic Resonance Angiography 04/22/17 Signed Impressions: Service Date/Time: Saturday, April 22, 2017 16:26 - CONCLUSION: 1. Large acute posterior circulation deficit with essential nonfilling of the visualized vertebral arteries and posterior cerebral arteries. Other than some limited filling of the left anterior, inferior cerebellar artery, the cerebellar arteries also don't fill. 2. Partially occluded distal right middle cerebral artery branches noted but actually improved modestly in the interim. No acute anterior circulation abnormality seen. Rodney Pennington MD Brain MRI 04/22/17 Signed Impressions: Service Date/Time: Saturday, April 22, 2017 16:26 - CONCLUSION: 1. Previous infarct in the right cerebellar hemisphere has extended medially and now involves the right middle cerebellar peduncle and right caroline and extending slightly into the left caroline. The medial temporal and occipital lobe infarcts are relatively stable. Remote right MCA infarct is stable. Carlos Goyal MD Objective Remarks GENERAL: 66-year-old male, critically ill currently orotracheally intubated SKIN: Warm and dry. Currently denies packs in his axillary and inguinal regions HEAD: Atraumatic. Normocephalic. EYES: Pupils equal and round about 3 mm bilaterally and reactive. No scleral icterus. No injection or drainage. ENT: No nasal bleeding or discharge. Mucous membranes pink and moist. Orotracheally intubated NECK: Trachea midline. No JVD. CARDIOVASCULAR: IRR. S1, S2 no S4. Without murmur RESPIRATORY: Coarse crackles appreciated throughout bilateral lung walker left greater than right. No wheezing GASTROINTESTINAL: Abdomen soft, non-tender, nondistended. Hypoactive bowel sounds appreciated MUSCULOSKELETAL: Extremities trace nonpitting lower extremity edema. No obvious deformities. NEUROLOGICAL: Prior to intubation, left upper and lower extremity weakness strength 1 out of 5 and decreased range of motion. Positive dysarthria. Currently withdrawing bilateral lower extremities. Essentially flaccid bilateral upper extremities. Upper toes. Positive corneal reflex. Positive gag. 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 MCA dissipation. Ex vacuo right lateral ventricle. Cytotoxic edema in the right occipital. Stable edema in the right cerebellar/ left cerebellar regions. Dr. Bush/Neurologist consulted. Appreciate recommendations. Recommended systemic anticoagulation with goal systolic blood pressure less than 160 MRI/A brain ordered 04/22 revealed posterior circulation stroke involving involving bilateral pontine cerebellum. Acute thrombosis bilateral vertebral arteries/posterior circulation CVA EEG ordered. Results pending Previously on lorazepam 0.5 mill grams by mouth 3 times a day for anxiety Previously levetiracetam 500 mg twice a day for seizure disorder. This is been continued. Level pending of Zaheer On phenytoin 100 mg twice a day/200 mg at night. Continue. Dilantin level 6.4 this facility. Repeat in a.m. CV: Hypertension Dyslipidemia Coronary artery disease History of CABG 4 Chronic systolic heart failure Currently on amlodipine 10 mill grams by mouth daily/lisinopril 10 mg twice a day metoprolol 12.5 mg every 8 hours. On metoprolol 100 mg daily at home along with lisinopril 20 mg daily at home. As needed labetalol/hydralazine and Nitropaste for blood pressure control less than 160. Add Clevidipine goal keep systolic blood pressure was 160 needed Recent 2-D echocardiogram 04/03 revealed EF 45-50%. Mild LVH. Mild TR. PAP 25 mmHg Follow-up CPK was 21 Resp: Acute hypercapnic respiratory failure - acute respiratory alkalosis COPD PRVC 14.1/500/1.1/5/35 Ventilator bundle Albuterol/Atrovent nebs every 6 hours with albuterol nebs every 2 hours when necessary breakthrough Follow-up ABG/chest x-ray in a.m. 04/24 GI: Coffee-ground emesis OG tube to LIWS Pantoprazole 40 mg IV twice a day for GI prophylaxis Docusate sodium/senna twice a day for bowel regimen GI consultation possible EGD and need for systemic anticoagulation : BPH Resume tamsulosin 0.8 mg by mouth at bedtime Dunlap catheter has been placed for accurate I's and O's in a critically ill patient Endo: Hypothyroidism Continue levothyroxine 75 mcg by tube daily. Follow-up on TSH Sliding-scale insulin with NovoLog with Accu-Cheks every 6 hours to maintain euglycemia/low regimen Renal: Chronic kidney disease stage II Accurate I's and O's Monitor urine output Follow-up CBC in a.m. Heme: Chronic vitamin K antagonist usage History of skin cancer Previous warfarin 1 mg by mouth daily. INR currently 1.3. Resume heparin drip if hemoglobin remain stable. Serial H&H's every 8 hours ID: Possible aspiration pneumonia With fevers will draw blood cultures 2, UA and sputum on 8/5 Cefepime/azithromycin/metronidazole and vancomycin started day #2 FEN: Hyponatremia Currently normal saline at 84 cc an hour. Replace electrolytes as clinically indicated per ICU electrolyte protocol MSK: PT/OT evaluate and treat Access - Utilize peripheral IV. Central line if indicated Prophylaxis - GI - Protonix - DVT - SCD/holding anticoagulation until seen by [facility] neurology Critical Care: The total critical care time was 35 minutes. Time to perform other separately billable procedures was not included in the critical care time. Dru Jones MD Apr 23, 2017 07:57
[2017-04-23] MEDS ORDERED: CLEVIDIPINE INJ 50 ML IV SCH (08:00)
[2017-04-23] MEDS ORDERED: POTASSIUM CHLORIDE 20 MEQ CONTROLLED RELEASE TAB PO SCH (09:00)
[2017-04-23] MEDS ORDERED: PANTOPRAZOLE SODIUM 40 MG VIAL IV SCH (09:00)
[2017-04-23] MEDS ORDERED: POTASSIUM CHLORIDE 20 MEQ PWD PACKET NG ONE (09:00)
[2017-04-23] MEDS: levETIRAcetam 500 MG TAB PO SCH ×2 (09:00→21:27)
[2017-04-23] MEDS: CHLORHEXIDINE 0.12% (ORAL KIT) 15 ML CUP MT SCH ×2 (09:15→21:29)
[2017-04-23] MEDS: PANTOPRAZOLE SODIUM 40 MG VIAL IV SCH ×2 (09:17→21:26)
[2017-04-23] MEDS: SODIUM CHLORIDE 0.9% FLUSH 10 ML FLUSH IV FLUSH SCH ×2 (09:17→21:28)
[2017-04-23] MEDS: LISINOPRIL 10 MG TAB OG-TUBE SCH ×2 (09:17→21:28)
[2017-04-23] MEDS: MULTIVITAMIN TAB PO SCH (09:17)
[2017-04-23] MEDS: DOCUSATE SODIUM 50 MG/SENNA 8.6 MG TAB PO SCH ×2 (09:18→21:27)
[2017-04-23] MEDS: PHENYTOIN SUSP 100 MG/4 ML CUP PO SCH (09:20)
[2017-04-23] MEDS ORDERED: CALCIUM GLUCONATE INJ 2 GM in SODIUM CHLORIDE 0.9% INJ 100 ML IV ONE (10:00)
[2017-04-23] MEDS: POTASSIUM CHLOR 10 MEQ PREMIX 100 ML IV SCH ×3 (10:18→12:27)
--- NOTE | 2017-04-23 12:02 | PD.CONS ---
HPI History of Present Illness This is a 66 year old male who currently resides at [facility] since 04/20/17. He was sent to ED due to altered mental status. PMH significant for CVA, A fib, COPD, CAD, HTN, Hypothyroidism, CKD, CO with recent bilateral SHOP COORDINATOR infarct. Patient was admitted 04/03 with bilateral circulation CVA. Cardiothoracic surgery evaluated patient and determined he was not a surgical candidate, recommended blood thinner, statin, and blood pressure control. GI was consulted for coffee ground emesis that occurred overnight. OGT tube noted to have brown coffee ground liquid in tubing and canister. (Velma Talavera) PFSH Past Medical History CVA with left-sided hemiparesis Atrial fibrillation Hyperlipidemia COPD CAD BPH Hypertension Myocardial infarction Renal insufficiency Seizures Hypothyroidism Past Surgical History Unable to obtain (Velma Talavera) Coded Allergies: Contrast Media (Verified Allergy, Severe, Rash, 04/22/17) Medications Current Medications Medications (Trade) Dose Ordered Sig/Ada Route PRN Reason Start Time Stop Time Status Last Admin Dose Admin Enalaprilat (Vasotec Inj) 1.25 mg Q6H PRN IV SEE LABEL COMMENTS 04/22/17 16:00 04/23/17 09:23 Isosorbide Mononitrate (Imdur) 30 mg BID PO 04/22/17 14:30 Hold Levetriacetam (Keppra) 500 mg BID PO 04/22/17 21:00 04/23/17 09:00 Levothyroxine Sodium (Synthroid) 75 mcg DAILY@06 PO 04/23/17 06:00 04/23/17 05:34 Phenytoin (Dilantin Liq) 100 mg BID PO 04/22/17 21:00 04/23/17 09:20 Phenytoin (Dilantin Liq) 200 mg HS PO 04/22/17 21:00 04/22/17 21:20 Potassium Chloride (KCl) 20 meq DAILY PO 04/23/17 09:00 Tamsulosin HCl (Flomax) 0.8 mg HS PO 04/22/17 21:00 Multivitamins 1 tab 1 tab DAILY PO 04/23/17 09:00 04/23/17 09:17 Nitroglycerin/ Dextrose 250 ml @ 0 mls/hr TITRATE IV 04/22/17 13:00 Sodium Chloride (NS 1000 ml Inj) 1,000 ml @ 84 mls/hr [id number] IV 04/22/17 16:00 04/23/17 04:39 Sodium Chloride (NS Flush) 2 ml UNSCH PRN IV FLUSH FLUSH AFTER USING IV ACCESS 04/22/17 15:45 04/23/17 09:23 Sodium Chloride (NS Flush) 2 ml BID IV FLUSH 04/22/17 21:00 04/23/17 09:17 Acetaminophen (Tylenol) 650 mg Q6H PRN OG-TUBE PAIN 1-10 AND/OR FEVER >101F 04/22/17 15:45 Midazolam HCl (Versed Inj) 2 mg Q1H PRN IV SEDATION 04/22/17 15:45 Artificial Tears (Tears Naturale Opth Soln) 1 drop TID EACH EYE 04/22/17 18:00 Ondansetron HCl (Zofran Inj) 4 mg Q6H PRN IV NAUSEA OR VOMITING 04/22/17 15:45 04/23/17 09:23 Miscellaneous Information 1 Q361D XX 04/22/17 15:45 Chlorhexidine Gluconate (Chlorhexidine 2% Cloth) 3 pack Taper DAILY@04 TOP 04/23/17 04:00 04/19/18 03:59 04/23/17 04:00 Chlorhexidine Gluconate (Chlorhexidine 2% Cloth) 3 pack UNSCH PRN TOP HYGIENIC CARE 04/22/17 15:45 Senna/Docusate Sodium (Nandini-Colace) 1 tab BID PO 04/22/17 21:00 04/23/17 09:18 Magnesium Hydroxide (Milk Of Magnesia Liq) 30 ml Q12H PRN PO MILD - MODERATE CONSTIPATION 04/22/17 15:45 Sennosides (Senokot) 17.2 mg Q12H PRN PO MODERATE - SEVERE CONSTIPATION 04/22/17 15:45 Bisacodyl (Dulcolax Supp) 10 mg DAILY PRN RECTAL SEVERE CONSITIPATION 04/22/17 15:45 Lactulose 30 ml 30 ml DAILY PRN PO SEVERE CONSITIPATION 04/22/17 15:45 Propofol 100 ml @ 0 mls/hr TITRATE IV 04/22/17 15:45 04/23/17 10:18 Fentanyl Citrate 250 ml @ 0 mls/hr TITRATE IV 04/22/17 15:45 Potassium Chloride 100 ml @ 50 mls/hr Q2H PRN IV For Potassium 2.8 - 3.2 mEq/L 04/22/17 15:45 Potassium Chloride (KCl 20 Meq Premix Inj) 100 ml @ 50 mls/hr Q2H PRN IV For Potassium 2.8 - 3.2 mEq/L 04/22/17 15:45 Potassium Bicarb/ Potassium Chloride 50 meq 50 meq UNSCH PRN PO For Potassium 3.3 - 3.5 mEq/L 04/22/17 15:45 Potassium Chloride 100 ml @ 25 mls/hr UNSCH PRN IV For Potassium 3.3 - 3.5 mEq/L 04/22/17 15:45 Potassium Chloride 100 ml @ 50 mls/hr Q2H PRN IV For Potassium 3.3 - 3.5 mEq/L 04/22/17 15:45 04/23/17 09:22 Magnesium Sulfate/ Sodium Chloride (Magnesium Sulfate Inj/NS Inj) 100 ml @ 50 mls/hr UNSCH PRN IV For Magnesium 0.9 - 1.1 mg/dL 04/22/17 15:45 Magnesium Oxide 800 mg 800 mg UNSCH PRN PO For Magnesium 1.2 - 1.6 mg/dL 04/22/17 15:45 Magnesium Sulfate/ Sodium Chloride (Magnesium Sulfate Inj/NS Inj) 100 ml @ 50 mls/hr UNSCH PRN IV For Magnesium 1.2 - 1.6 mg/dL 04/22/17 15:45 Potassium Phosphate 2000 mg 2,000 mg Q4H PRN PO For Phosphorus < 2.5 mg/dL 04/22/17 15:45 Sodium Phosphate/ Sodium Chloride (Sodium Phosphate Inj/NS 250 ml Inj) 250 ml @ 42 mls/hr UNSCH PRN IV For Phosphorus < 2.5 mg/dL 04/22/17 15:45 Potassium Phosphate 2000 mg 2,000 mg UNSCH PRN PO/TUBE SEE LABEL COMMENTS 04/22/17 15:45 Potassium Phosphate/Sodium Chloride (Potassium Phosphate Inj/NS 250 ml Inj) 260 ml @ 42 mls/hr UNSCH PRN IV SEE LABEL COMMENTS 04/22/17 15:45 Dextrose (D50w (Vial) Inj) 50 ml UNSCH PRN IV HYPOGLYCEMIA-SEE COMMENTS 04/22/17 15:45 Glucagon (Glucagon Inj) 1 mg UNSCH PRN OTHER HYPOGLYCEMIA-SEE COMMENTS 04/22/17 15:45 Insulin Aspart (NovoLOG SUPPLEMENTAL SCALE) 1 Q6HR SQ 04/22/17 18:00 Chlorhexidine Gluconate (Peridex 0.12% Liq) 15 ml BID@08,20 MT 04/22/17 20:00 04/23/17 09:15 Amlodipine Besylate (Norvasc) 10 mg DAILY OG-TUBE 04/23/17 09:00 04/23/17 09:18 Lisinopril 10 mg 10 mg BID OG-TUBE 04/22/17 21:00 04/23/17 09:17 Cefepime HCl 2000 mg/Sodium Chloride 100 ml @ 200 mls/hr Q8H IV 04/22/17 17:00 04/23/17 09:17 Azithromycin 500 mg/Sodium Chloride 250 ml @ 250 mls/hr Q24H IV 04/22/17 18:00 04/22/17 17:57 Metronidazole (Flagyl 500 Mg Inj) 100 ml @ 100 mls/hr Q8H IV 04/22/17 17:00 04/23/17 09:16 Isosorbide Dinitrate (Isordil) 10 mg Q8HR PO 04/22/17 22:00 Metoprolol Tartrate (Lopressor) 12.5 mg Q8HR PO 04/22/17 22:00 04/23/17 05:34 Nitroglycerin (Nitroglycerin 2% Oint) 2 inch Q6HR PRN TOPICAL SBP> OR = 160, DBP> OR = 90 04/22/17 16:00 Hydralazine HCl (Apresoline Inj) 10 mg Q1HR PRN IV PUSH SBP> OR = 160, DBP> OR = 90 04/22/17 16:00 04/23/17 09:24 Labetalol HCl 10 mg 10 mg Q1HR PRN IV PUSH SBP>160, DBP>90, HR>65 04/22/17 16:00 Vancomycin HCl 1500 mg/Sodium Chloride 515 ml @ 257.5 mls/ hr Q24H IV 04/22/17 18:00 04/22/17 17:56 Heparin Sodium/ Dextrose (Heparin-D5W Inj) 250 ml @ 0 mls/hr TITRATE IV 04/22/17 18:00 Hold 04/22/17 18:33 Pantoprazole Sodium 40 mg 40 mg Q12HR IV 04/23/17 09:00 04/23/17 09:17 Clevidipine 50 ml @ 0 mls/hr TITRATE IV 04/23/17 08:00 04/23/17 09:24 Potassium Chloride (KCl 10 Meq Premix Inj) 100 ml @ 100 mls/hr Q1H IV 04/23/17 09:00 04/23/17 11:59 04/23/17 10:18 Family History Unable to obtain Social History Per EMR, Tobacco, recently stopped smoking, using e- cigarettes ETOH, history of alcohol abuse for several years. Occasionally drinks alcohol in the care home. (Velma Talavera) Review of Systems ROS Unable to assess. (Velma Talavera) GI Exam Vitals I&O Vital Signs Date Time Temp Pulse Resp B/P Pulse Ox O2 Delivery O2 Flow Rate FiO2 04/23/17 07:33 98 35 04/23/17 06:00 60 04/23/17 04:00 40 04/23/17 04:00 68 04/23/17 04:00 97.8 68 12 161/83 98 04/23/17 03:34 100 40 04/23/17 02:00 73 04/23/17 00:00 75 04/23/17 00:00 98.0 75 10 158/91 97 04/23/17 00:00 40 04/22/17 22:00 40 04/22/17 22:00 77 04/22/17 21:41 97 40 04/22/17 20:00 99.1 89 18 152/75 97 04/22/17 20:00 89 04/22/17 20:00 40 04/22/17 18:31 40 04/22/17 18:00 94 12 135/83 95 04/22/17 18:00 94 04/22/17 17:30 100.2 96 12 143/77 95 04/22/17 17:20 92 16 180/82 99 Ventilator 92 04/22/17 16:37 90 16 194/98 99 Ventilator 97 04/22/17 16:00 99 04/22/17 15:30 90 16 206/104 99 Ventilator 97 04/22/17 15:22 100 04/22/17 15:19 99 100 04/22/17 15:19 100 Ventilator 100 04/22/17 15:16 107 24 169/85 98 Nasal Cannula 2 04/22/17 14:25 103.9 110 24 171/84 99 Nasal Cannula 2 04/22/17 13:45 100 22 180/92 97 Nasal Cannula 2 04/22/17 13:30 96 22 205/107 97 Nasal Cannula 2 04/22/17 11:49 87 24 198/107 96 Nasal Cannula 2 I/O 04/22/17 04/22/17 04/22/17 04/23/17 04/23/17 04/23/17 07:00 15:00 23:00 07:00 15:00 23:00 Intake Total 1789 ml 745 ml Output Total 1650 ml 525 ml Balance 139 ml 220 ml Intake IV Total 1789 ml 745 ml Output Urine Total 1500 ml 500 ml Gastric Drainage Total 150 ml 25 ml # Bowel Movements 1 Imaging Last Impressions Head CT 04/22/17823 Signed Impressions: Service Date/Time: Saturday, April 22, 2017 08:55 - CONCLUSION: Stable noncontrast head CT with cytotoxic edema in the occipital lobes bilaterally and in the right cerebellum. There has been no interval hemorrhage or herniation. Rodney Romano MD Chest X-Ray 04/22/17823 Signed Impressions: Service Date/Time: Saturday, April 22, 2017 08:31 - CONCLUSION: Underinflation with atelectasis versus airspace consolidation at the left lung base. Rodney Romano MD Neck Magnetic Resonance Angiography 04/22/17 0000 Signed Impressions: Service Date/Time: Saturday, April 22, 2017 16:26 - CONCLUSION: Severely compromised posterior circulation with acutely thrombosed bilateral vertebral arteries as described above. No acute anterior circulation abnormality. Rodney Pennington MD Head Magnetic Resonance Angiography 04/22/17 0000 Signed Impressions: Service Date/Time: Saturday, April 22, 2017 16:26 - CONCLUSION: 1. Large acute posterior circulation deficit with essential nonfilling of the visualized vertebral arteries and posterior cerebral arteries. Other than some limited filling of the left anterior, inferior cerebellar artery, the cerebellar arteries also don't fill. 2. Partially occluded distal right middle cerebral artery branches noted but actually improved modestly in the interim. No acute anterior circulation abnormality seen. Rodney Pennington MD Brain MRI 04/22/17 0000 Signed Impressions: Service Date/Time: Saturday, April 22, 2017 16:26 - CONCLUSION: 1. Previous infarct in the right cerebellar hemisphere has extended medially and now involves the right middle cerebellar peduncle and right caroline and extending slightly into the left caroline. The medial temporal and occipital lobe infarcts are relatively stable. Remote right MCA infarct is stable. Carlos Goyal MD Laboratory Test 04/22/17 04/22/17 04/22/17 04/22/17 14:21 15:50 17:34 17:50 Blood Gas Puncture Site RT RADIAL RT RADIAL Blood Gas Patient Temperature 98.6 98.6 Blood Gas HCO3 16 mmol/L 18 mmol/L Blood Gas Base Excess -4.6 mmol/L -5.7 mmol/L Blood Gas Oxygen Saturation 94 % 96 % Arterial Blood pH 7.65 7.40 Arterial Blood Partial 15 mmHg 30 mmHg Pressure CO2 Arterial Blood Partial 62 mmHG 116 mmHg Pressure O2 Arterial Blood Oxygen Content 22.7 Vol % 22.3 Vol % Arterial Blood 1.5 % 1.3 % Carboxyhemoglobin Arterial Blood Methemoglobin 0.5 % 1.0 % Blood Gas Hemoglobin 17.2 G/DL 16.4 G/DL Oxygen Delivery Device NASAL CANNULA VENTILATOR Blood Gas Liter Flow 2 L/M Salicylates Level LESS THAN 1.7 MG/DL Blood Gas Ventilator Setting PRVC/AC 500/12 Blood Gas Inspired Oxygen 40 % Nasal Screen MRSA (PCR) MRSA NOT DETECTED Test 04/22/17 04/22/17 04/22/17 04/23/17 18:22 18:27 19:13 01:24 Ammonia 19 MCMOL/L Total Creatine Kinase 183 U/L Troponin I 0.04 NG/ML 0.05 NG/ML White Blood Count 19.5 TH/MM3 Red Blood Count 5.12 MIL/MM3 Hemoglobin 15.6 GM/DL Hematocrit 44.1 % Mean Corpuscular Volume 86.2 FL Mean Corpuscular Hemoglobin 30.4 PG Mean Corpuscular Hemoglobin 35.3 % Concent Red Cell Distribution Width 13.0 % Platelet Count 208 TH/MM3 Mean Platelet Volume 6.9 FL Prothrombin Time 17.1 SEC Prothromb Time International 1.5 RATIO Ratio Activated Partial 35.7 SEC Thromboplast Time Test 04/23/17 05:00 White Blood Count 12.5 TH/MM3 Red Blood Count 5.12 MIL/MM3 Hemoglobin 15.3 GM/DL Hematocrit 45.0 % Mean Corpuscular Volume 87.9 FL Mean Corpuscular Hemoglobin 29.8 PG Mean Corpuscular Hemoglobin 33.9 % Concent Red Cell Distribution Width 13.8 % Platelet Count 176 TH/MM3 Mean Platelet Volume 6.4 FL Neutrophils (%) (Auto) 74.0 % Lymphocytes (%) (Auto) 13.7 % Monocytes (%) (Auto) 10.1 % Eosinophils (%) (Auto) 1.9 % Basophils (%) (Auto) 0.3 % Neutrophils # (Auto) 9.3 TH/MM3 Lymphocytes # (Auto) 1.7 TH/MM3 Monocytes # (Auto) 1.3 TH/MM3 Eosinophils # (Auto) 0.2 TH/MM3 Basophils # (Auto) 0.0 TH/MM3 CBC Comment DIFF FINAL Differential Comment Prothrombin Time 14.7 SEC Prothromb Time International 1.3 RATIO Ratio Activated Partial 30.1 SEC Thromboplast Time Sodium Level 138 MEQ/L Potassium Level 3.3 MEQ/L Chloride Level 106 MEQ/L Carbon Dioxide Level 21.8 MEQ/L Anion Gap 10 MEQ/L Blood Urea Nitrogen 12 MG/DL Creatinine 1.03 MG/DL Estimat Glomerular Filtration 72 ML/MIN Rate Random Glucose 111 MG/DL Lactic Acid Level 0.8 mmol/L Calcium Level 7.2 MG/DL Protein Corrected Calcium 7.5 MG/DL Phosphorus Level 2.5 MG/DL Magnesium Level 2.0 MG/DL Total Bilirubin 0.8 MG/DL Aspartate Amino Transf 33 U/L (AST/SGOT) Alanine Aminotransferase 28 U/L (ALT/SGPT) Alkaline Phosphatase 79 U/L Total Protein 6.5 GM/DL Albumin 2.9 GM/DL Phenytoin (Dilantin) Level 3.1 MCG/ML Date/Time Procedure Status Source Growth 04/22/17 08:50 Aerobic Blood Culture - Preliminary Resulted Blood Peripheral NO GROWTH IN 1 DAY 04/22/17 08:50 Anaerobic Blood Culture - Preliminary Resulted Blood Peripheral NO GROWTH IN 1 DAY Physical Examination HEENT: Normocephalic; atraumatic; no jaundice. Orotracheally intubated NECK: Neck is supple, no JVD, no lymphadenopathy. CHEST: Coarse crackles throughout. CARDIAC: Irregular. ABDOMEN: Soft, nondistended, nontender; hypoactive bowel sounds EXTREMITIES: Trace edema at lower extremities. SKIN: Normal; no rash; no jaundice. 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 HH stable, 15.3/45. INR 1.3 Has been on Heparin (on hold). Patient with history of alcohol abuse and now drinking occasionally at care home, per EMR. Protonix IV. Acute SHOP COORDINATOR CVA, thrombosed bilateral vertebral arteries acute. History of recent bilateral SHOP COORDINATOR CVA. 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 Recommended systemic anticoagulation. Per critical care team. Acute hypercapnic respiratory failure, Orotracheally intubated. Per critical care team. Hypertension, Dyslipidemia, Coronary artery disease, History of CABG 4, Chronic systolic heart failure, BPH, Hypothyroidism, CKD stage II, per critical care team. PLAN - Consider EGD when stable - OGT to LIWS - IV PPI - Monitor HH - Notify GI of active bleeding - Supportive care - Further recommendations to follow based on results of above Patient seen and examined by Dr. Novak and myself and this note is written on her behalf. (Velma Talavera) Physician Comments seen, examined agree with above no active bleeding patient unstable for any endoscopy at this time unless active bleeding poor prognosis (Danyell Novak MD) Velma Talavera Apr 23, 2017 12:02 Danyell Novak MD Apr 23, 2017 15:35
[2017-04-23] MEDS: ARTIFICIAL TEARS OPTH SOLN 15 ML BTL EACH EYE SCH ×2 (13:14→17:32)
--- NOTE | 2017-04-23 13:34 | HHI.PR ---
Review/Management Diagnosis extensive posterior circulation stroke with thrombosed vertebral arteries Diagnosis/Plan: Subjective Subjective Comments No acute events reported developed coffee ground emesis last pm and stopped iv heparin Active Medications Current Medications Medications (Trade) Dose Ordered Sig/Ada Route Start Time Stop Time Status Last Admin (Vasotec Inj) 1.25 mg Q6H PRN IV 04/22/17 16:00 04/23/17 09:23 (Imdur) 30 mg BID PO 04/22/17 14:30 Hold (Keppra) 500 mg BID PO 04/22/17 21:00 04/23/17 09:00 (Synthroid) 75 mcg DAILY@06 PO 04/23/17 06:00 04/23/17 05:34 (Dilantin Liq) 100 mg BID PO 04/22/17 21:00 04/23/17 09:20 (Dilantin Liq) 200 mg HS PO 04/22/17 21:00 04/22/17 21:20 (KCl) 20 meq DAILY PO 04/23/17 09:00 (Flomax) 0.8 mg HS PO 04/22/17 21:00 Multivitamins 1 tab 1 tab DAILY PO 04/23/17 09:00 04/23/17 09:17 Nitroglycerin/ Dextrose 250 ml @ 0 mls/hr TITRATE IV 04/22/17 13:00 (NS 1000 ml Inj) 1,000 ml @ 84 mls/hr [id number] IV 04/22/17 16:00 04/23/17 04:39 (NS Flush) 2 ml UNSCH PRN IV FLUSH 04/22/17 15:45 04/23/17 09:23 (NS Flush) 2 ml BID IV FLUSH 04/22/17 21:00 04/23/17 09:17 (Tylenol) 650 mg Q6H PRN OG-TUBE 04/22/17 15:45 (Versed Inj) 2 mg Q1H PRN IV 04/22/17 15:45 (Tears Naturale Opth Soln) 1 drop TID EACH EYE 04/22/17 18:00 04/23/17 13:14 (Zofran Inj) 4 mg Q6H PRN IV 04/22/17 15:45 04/23/17 09:23 Miscellaneous Information 1 Q361D XX 04/22/17 15:45 (Chlorhexidine 2% Cloth) 3 pack Taper DAILY@04 TOP 04/23/17 04:00 04/19/18 03:59 04/23/17 04:00 (Chlorhexidine 2% Cloth) 3 pack UNSCH PRN TOP 04/22/17 15:45 (Nandini-Colace) 1 tab BID PO 04/22/17 21:00 04/23/17 09:18 (Milk Of Magnesia Liq) 30 ml Q12H PRN PO 04/22/17 15:45 (Senokot) 17.2 mg Q12H PRN PO 04/22/17 15:45 (Dulcolax Supp) 10 mg DAILY PRN RECTAL 04/22/17 15:45 Lactulose 30 ml 30 ml DAILY PRN PO 04/22/17 15:45 Propofol 100 ml @ 0 mls/hr TITRATE IV 04/22/17 15:45 04/23/17 10:18 Fentanyl Citrate 250 ml @ 0 mls/hr TITRATE IV 04/22/17 15:45 04/23/17 12:27 Potassium Chloride 100 ml @ 50 mls/hr Q2H PRN IV 04/22/17 15:45 (KCl 20 Meq Premix Inj) 100 ml @ 50 mls/hr Q2H PRN IV 04/22/17 15:45 Potassium Bicarb/ Potassium Chloride 50 meq 50 meq UNSCH PRN PO 04/22/17 15:45 Potassium Chloride 100 ml @ 25 mls/hr UNSCH PRN IV 04/22/17 15:45 Potassium Chloride 100 ml @ 50 mls/hr Q2H PRN IV 04/22/17 15:45 04/23/17 09:22 (Magnesium Sulfate Inj/NS Inj) 100 ml @ 50 mls/hr UNSCH PRN IV 04/22/17 15:45 Magnesium Oxide 800 mg 800 mg UNSCH PRN PO 04/22/17 15:45 (Magnesium Sulfate Inj/NS Inj) 100 ml @ 50 mls/hr UNSCH PRN IV 04/22/17 15:45 Potassium Phosphate 2000 mg 2,000 mg Q4H PRN PO 04/22/17 15:45 (Sodium Phosphate Inj/NS 250 ml Inj) 250 ml @ 42 mls/hr UNSCH PRN IV 04/22/17 15:45 Potassium Phosphate 2000 mg 2,000 mg UNSCH PRN PO/TUBE 04/22/17 15:45 (Potassium Phosphate Inj/NS 250 ml Inj) 260 ml @ 42 mls/hr UNSCH PRN IV 04/22/17 15:45 (D50w (Vial) Inj) 50 ml UNSCH PRN IV 04/22/17 15:45 (Glucagon Inj) 1 mg UNSCH PRN OTHER 04/22/17 15:45 (NovoLOG SUPPLEMENTAL SCALE) 1 Q6HR SQ 04/22/17 18:00 (Peridex 0.12% Liq) 15 ml BID@08,20 MT 04/22/17 20:00 04/23/17 09:15 (Norvasc) 10 mg DAILY OG-TUBE 04/23/17 09:00 04/23/17 09:18 Lisinopril 10 mg 10 mg BID OG-TUBE 04/22/17 21:00 04/23/17 09:17 Cefepime HCl 2000 mg/Sodium Chloride 100 ml @ 200 mls/hr Q8H IV 04/22/17 17:00 04/23/17 09:17 Azithromycin 500 mg/Sodium Chloride 250 ml @ 250 mls/hr Q24H IV 04/22/17 18:00 04/22/17 17:57 (Flagyl 500 Mg Inj) 100 ml @ 100 mls/hr Q8H IV 04/22/17 17:00 04/23/17 09:16 (Isordil) 10 mg Q8HR PO 04/22/17 22:00 (Lopressor) 12.5 mg Q8HR PO 04/22/17 22:00 04/23/17 05:34 (Nitroglycerin 2% Oint) 2 inch Q6HR PRN TOPICAL 04/22/17 16:00 (Apresoline Inj) 10 mg Q1HR PRN IV PUSH 04/22/17 16:00 04/23/17 09:24 Labetalol HCl 10 mg 10 mg Q1HR PRN IV PUSH 04/22/17 16:00 Vancomycin HCl 1500 mg/Sodium Chloride 515 ml @ 257.5 mls/ hr Q24H IV 04/22/17 18:00 04/22/17 17:56 (Heparin-D5W Inj) 250 ml @ 0 mls/hr TITRATE IV 04/22/17 18:00 Hold 04/22/17 18:33 Pantoprazole Sodium 40 mg 40 mg Q12HR IV 04/23/17 09:00 04/23/17 09:17 (Cleviprex Inj) 50 ml @ 0 mls/hr TITRATE IV 04/23/17 08:00 04/23/17 09:24 Allergies Allergies Coded Allergies Contrast Media (Verified Allergy, Severe, Rash, 04/22/17) Exam I&O / VS 04/22/17 04/22/17 04/23/17 15:00 23:00 07:00 Intake Total 1789 ml 745 ml Output Total 1650 ml 525 ml Balance 139 ml 220 ml Intake IV Total 1789 ml 745 ml Output Urine Total 1500 ml 500 ml Gastric Drainage Total 150 ml 25 ml # Bowel Movements 1 Vital Signs Date Time Temp Pulse Resp B/P Pulse Ox O2 Delivery O2 Flow Rate FiO2 04/23/17 12:24 96 35 04/23/17 12:00 58 04/23/17 12:00 35 04/23/17 12:00 94.1 58 16 145/74 96 04/23/17 11:45 93.7 59 13 133/69 97 04/23/17 11:30 93.6 56 13 134/63 97 04/23/17 11:15 93.6 53 16 130/65 96 04/23/17 11:00 93.4 55 13 126/63 97 04/23/17 11:00 55 04/23/17 10:45 93.4 53 16 124/62 97 04/23/17 10:30 93.6 53 12 125/56 97 04/23/17 10:15 93.6 55 14 136/62 97 04/23/17 10:00 93.7 51 16 157/70 98 04/23/17 10:00 51 04/23/17 09:54 93.7 49 17 126/60 98 04/23/17 09:45 93.9 54 11 98 04/23/17 09:30 93.9 59 14 190/98 99 04/23/17 09:15 93.9 57 14 99 04/23/17 09:00 94.1 58 14 188/88 98 04/23/17 09:00 94.1 58 14 188/88 98 04/23/17 09:00 58 04/23/17 08:45 94.3 56 14 98 04/23/17 08:31 58 14 184/90 98 04/23/17 08:30 59 14 190/89 98 04/23/17 08:15 57 14 98 04/23/17 08:00 35 04/23/17 08:00 57 04/23/17 08:00 57 14 180/88 98 04/23/17 07:33 98 35 04/23/17 06:00 60 04/23/17 04:00 40 04/23/17 04:00 68 04/23/17 04:00 97.8 68 12 161/83 98 04/23/17 03:34 100 40 04/23/17 02:00 73 04/23/17 00:00 75 04/23/17 00:00 98.0 75 10 158/91 97 04/23/17 00:00 40 04/22/17 22:00 40 04/22/17 22:00 77 04/22/17 21:41 97 40 04/22/17 20:00 99.1 89 18 152/75 97 04/22/17 20:00 89 04/22/17 20:00 40 04/22/17 18:31 40 04/22/17 18:00 94 12 135/83 95 04/22/17 18:00 94 04/22/17 17:30 100.2 96 12 143/77 95 04/22/17 17:20 92 16 180/82 99 Ventilator 92 04/22/17 16:37 90 16 194/98 99 Ventilator 97 04/22/17 16:00 99 04/22/17 15:30 90 16 206/104 99 Ventilator 97 04/22/17 15:22 100 04/22/17 15:19 99 100 04/22/17 15:19 100 Ventilator 100 04/22/17 15:16 107 24 169/85 98 Nasal Cannula 2 04/22/17 14:25 103.9 110 24 171/84 99 Nasal Cannula 2 04/22/17 13:45 100 22 180/92 97 Nasal Cannula 2 Respiratory: Lungs CTA, Non-labored respirations, Coarse breath sounds Cardiology: Normal rate, Irregular Rhythm Exam Comments nonresponsive 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 Objective Micro and Labs Laboratory Tests Test 04/22/17 04/22/17 04/22/17 04/22/17 14:21 15:50 17:34 17:50 Blood Gas Puncture Site RT RADIAL RT RADIAL Blood Gas Patient Temperature 98.6 98.6 Blood Gas HCO3 16 18 Blood Gas Base Excess -4.6 -5.7 Blood Gas Oxygen Saturation 94 96 Arterial Blood pH 7.65 7.40 Arterial Blood Partial 15 30 Pressure CO2 Arterial Blood Partial 62 116 Pressure O2 Arterial Blood Oxygen Content 22.7 22.3 Arterial Blood 1.5 1.3 Carboxyhemoglobin Arterial Blood Methemoglobin 0.5 1.0 Blood Gas Hemoglobin 17.2 16.4 Oxygen Delivery Device NASAL CANNULA VENTILATOR Blood Gas Liter Flow 2 Salicylates Level LESS THAN 1.7 Blood Gas Ventilator Setting PRVC/AC 500/12 Blood Gas Inspired Oxygen 40 Nasal Screen MRSA (PCR) MRSA NOT DETECTED Test 04/22/17 04/22/17 04/22/17 04/23/17 18:22 18:27 19:13 01:24 Ammonia 19 Total Creatine Kinase 183 Troponin I 0.04 0.05 White Blood Count 19.5 Red Blood Count 5.12 Hemoglobin 15.6 Hematocrit 44.1 Mean Corpuscular Volume 86.2 Mean Corpuscular Hemoglobin 30.4 Mean Corpuscular Hemoglobin 35.3 Concent Red Cell Distribution Width 13.0 Platelet Count 208 Mean Platelet Volume 6.9 Prothrombin Time 17.1 Prothromb Time International 1.5 Ratio Activated Partial 35.7 Thromboplast Time Test 04/23/17 05:00 White Blood Count 12.5 Red Blood Count 5.12 Hemoglobin 15.3 Hematocrit 45.0 Mean Corpuscular Volume 87.9 Mean Corpuscular Hemoglobin 29.8 Mean Corpuscular Hemoglobin 33.9 Concent Red Cell Distribution Width 13.8 Platelet Count 176 Mean Platelet Volume 6.4 Neutrophils (%) (Auto) 74.0 Lymphocytes (%) (Auto) 13.7 Monocytes (%) (Auto) 10.1 Eosinophils (%) (Auto) 1.9 Basophils (%) (Auto) 0.3 Neutrophils # (Auto) 9.3 Lymphocytes # (Auto) 1.7 Monocytes # (Auto) 1.3 Eosinophils # (Auto) 0.2 Basophils # (Auto) 0.0 CBC Comment DIFF FINAL Differential Comment Prothrombin Time 14.7 Prothromb Time International 1.3 Ratio Activated Partial 30.1 Thromboplast Time Sodium Level 138 Potassium Level 3.3 Chloride Level 106 Carbon Dioxide Level 21.8 Anion Gap 10 Blood Urea Nitrogen 12 Creatinine 1.03 Estimat Glomerular Filtration 72 Rate Random Glucose 111 Lactic Acid Level 0.8 Calcium Level 7.2 Protein Corrected Calcium 7.5 Phosphorus Level 2.5 Magnesium Level 2.0 Total Bilirubin 0.8 Aspartate Amino Transf 33 (AST/SGOT) Alanine Aminotransferase 28 (ALT/SGPT) Alkaline Phosphatase 79 Total Protein 6.5 Albumin 2.9 Phenytoin (Dilantin) Level 3.1 Date/Time Procedure Status Source Growth 04/22/17 08:50 Aerobic Blood Culture - Preliminary Resulted Blood Peripheral NO GROWTH IN 1 DAY 04/22/17 08:50 Anaerobic Blood Culture - Preliminary Resulted Blood Peripheral NO GROWTH IN 1 DAY Jey Bush PhD Apr 23, 2017 13:34
[2017-04-23] MEDS: ISOSORBIDE DINITRATE 10 MG TAB PO SCH ×2 (14:00→23:10)
--- NOTE | 2017-04-23 14:07 | MG ---
cc: VIVEK GUADARRAMA M.D. Lab No: [id number] Date: 04/23/2017 Age: Sex: M Race: TECHNIQUE: This is 17 channel EEG. DESCRIPTION OF THE RECORDING: The background rhythm is generally slow in the delta frequency at 3-4 Hz amplitude, 10 microvolts. There are no lateralizing features seen. There are no epileptiform discharges seen. Photic stimulation results in a poor driving response. INTERPRETATION: Abnormal study consistent with a severe encephalopathy. MD GHADA Garcia/RADHA /1:57 PM /2:01 PM
[2017-04-23] MEDS: FOSPHENYTOIN SODIUM 100 MG PE/2 ML VIAL IV SCH ×2 (15:42→21:27)
[2017-04-23] MEDS ORDERED: SODIUM CHLOR 0.9% 1000 ML INJ 1,000 ML IV ONE (15:45)
[2017-04-23] MEDS: HEPARIN-D5W INJ 250 ML IV SCH (15:45)
[2017-04-23 15:54] LABS: HEMATOCRIT 42.7 % (39.0-51.0); REVIEW FLAG FINAL
[2017-04-23] MEDS ORDERED: LACTATED RINGER'S 1000 ML INJ 1,000 ML IV ONE (17:00)
--- NOTE | 2017-04-23 17:25 | EKG ---
Date Performed: 04/22/2017 Time Performed: 08:28:37 PTAGE: 66 years EKG: Sinus rhythm POSSIBLE LEFT ATRIAL ENLARGEMENT INFERIOR MYOCARDIAL INFARCTION MODERATE T-WAVE ABNORMALITY, CONSIDE R ANTEROLATERAL ISCHEMIA ABNORMAL ECG Since PREVIOUS TRACING , no significant change noted PREVIOUS TRACIN04/17/2017 02.49 DOCTOR: Adam Nicolas Interpretating Date/Time 04/23/2017 17:24:45
[2017-04-23] MEDS: AZITHROMYCIN INJ 500 MG in SODIUM CHLOR 0.9% 250 ML INJ 250 ML IV SCH (17:30)
[2017-04-23] MEDS: VANCOMYCIN INJ 1,500 MG in SODIUM CHLORID 0.9% 500 ML INJ 500 ML IV SCH (17:32)
--- NOTE | 2017-04-23 18:57 | RADRPT ---
EXAM DATE/TIME: 04/23/2017 18:44 [facility] COMPARISON: No previous studies available for comparison. INDICATIONS : Change in pupils. RADIATION DOSE: 49.45 CTDIvol (mGy) MEDICAL HISTORY : Seizures. Cerebrovascular disease. Hypertension. SURGICAL HISTORY : None. ENCOUNTER: Initial ACUITY: 1 day PAIN SCALE: Non-responsive LOCATION: cranial TECHNIQUE: Multiple contiguous axial images were obtained of the head. Using automated exposure control and adj ustment of the mA and/or kV according to patient size, radiation dose was kept as low as reasonably a chievable to obtain optimal diagnostic quality images. DICOM format image data is available electro nically for review and comparison. FINDINGS: There are evolving infarcts in the right cerebellar hemisphere and right caroline and also in the medial temporal and medial occipital lobes. Remote right MCA infarct also present. There is a slight increas e in swelling of the right cerebellar hemisphere since the prior exam now with at least partial effac ement of the fourth ventricle and some effacement of the pre-pontine cistern. CONCLUSION: 1. Evolving infarct in the posterior fossa involving the cerebellar hemisphere on the right and the r ight caroline with increasing swelling and mass effect with partial effacement of the fourth ventricle an d prepontine cistern. Comparison is April 22. Also evolving infarcts again noted in the medial tempor al and occipital lobes. Carlos Goyal MD on April 23, 2017 at 18:51 Board Certified Radiologist. This report was verified electronically.
[2017-04-23] MEDS: TAMSULOSIN HCL 0.4 MG CAP PO SCH (21:27)
[2017-04-23 21:28] LABS: APTT (PATIENT) 54.1 SEC (24.3-30.1)
[2017-04-23 23:11] LABS: HEMATOCRIT 41.3 % (39.0-51.0); REVIEW FLAG FINAL
[2017-04-24] VITALS (19 sets, daily range): BP systolic 98–124; BP diastolic 52–60; PULSE 53–63; RESP 0–14; TEMP 97–98.8; O2SAT 94–97
[2017-04-24] MEDS: metroNIDAZOLE 500 MG INJ 100 ML IV SCH ×3 (00:16→18:02)
[2017-04-24] MEDS: CEFEPIME INJ 2,000 MG in SODIUM CHLORIDE 0.9% INJ 100 ML IV SCH ×3 (00:16→17:57)
[2017-04-24] MEDS: RESP: ALBUTEROL 2.5 MG/IPRATROPIUM 0.5 MG NEB (SCH) INH ×4 (03:24→20:20)
[2017-04-24] MEDS: CHLORHEXIDINE GLUCONATE 2 % 1 PACK (2 CLOTHS) TOP SCH (04:00)
--- NOTE | 2017-04-24 04:53 | RADRPT ---
EXAM DATE/TIME: 04/24/2017 03:07 [facility] COMPARISON: CHEST SINGLE AP, April 22, 2017, 15:27. INDICATIONS : Short of breath. MEDICAL HISTORY : None. SURGICAL HISTORY : CABG. ENCOUNTER: Subsequent ACUITY: 1 week PAIN SCORE: 0/10 LOCATION: Bilateral chest FINDINGS: Median sternotomy wires, CABG markers, endotracheal tube and NG tube noted. There is consolidation at the bases. Small left effusion suspected. CONCLUSION: No significant change has occurred. Haroon Pichardo MD on April 24, 2017 at 4:52 Board Certified Radiologist. This report was verified electronically.
[2017-04-24] MEDS: HEPARIN-D5W INJ 250 ML IV SCH (04:56)
[2017-04-24 05:03] LABS: AUTOMATED NEUTROPHIL # 7.9 TH/MM3 (1.8-7.7); BASOPHIL % 0.3 % (0.0-2.0); EOSINOPHIL # 0.3 TH/MM3 (0-0.4); EOSINOPHIL % 2.9 % (0.0-4.0); HEMATOCRIT 38.3 % (39.0-51.0); HEMO FLAGS DIFF FINAL; LYMPH % 11.3 % (9.0-44.0); LYMPHOCYTE # 1.2 TH/MM3 (1.0-4.8); MEAN CELL VOLUME 88.9 FL (80.0-100.0); MEAN CORPUSCULAR HEMOGLOBIN 29.9 PG (27.0-34.0); MEAN CORPUSCULAR HGB CONC 33.6 % (32.0-36.0); MONO % 9.7 % (0.0-8.0); NEUT % 75.8 % (16.0-70.0); PLATELET COUNT 170 TH/MM3 (150-450); RED CELL DISTRIBUTION WIDTH 13.8 % (11.6-17.2); WHITE BLOOD COUNT 10.4 TH/MM3 (4.0-11.0)
[2017-04-24 05:10] LABS: BLOOD GAS BASE EXCESS -6.6 mmol/L (-2-2); BLOOD GAS CARBOXYHEMOGLOBIN 1.6 % (0-4); BLOOD GAS HCO3 19 mmol/L (22-26); BLOOD GAS O2 HGB SATURATION 96 % (90-100); BLOOD GAS OXYGEN CONTENT 17.2 Vol % (12.0-20.0); BLOOD GAS PCO2 40 mmHg (38-42); BLOOD GAS PO2 106 mmHg (61-120); BLOOD GAS TOTAL HGB 12.7 G/DL (12.0-16.0); CRITICAL VALUE YES; DRAW SITE RT RADIAL; FIO2 45 %; NUMBER OF ARTERIAL PUNCTURES 1; OXYGEN DEVICE VENTILATOR; STAT NO; TEMP CORR TO 98.6; ULNAR PULSE PRESENT; VENT SETTINGS PRVC14/500/1.0/+5
[2017-04-24 05:20] LABS: APTT (PATIENT) 72.5 SEC (24.3-30.1); INTERNATIONAL NORMALIZED RATIO 1.1 RATIO; PROTHROMBIN TIME - PATIENT 12.7 SEC (9.8-11.6)
[2017-04-24] MEDS: ISOSORBIDE DINITRATE 10 MG TAB PO SCH ×3 (05:30→21:20)
[2017-04-24] MEDS: LEVOTHYROXINE SODIUM 75 MCG TAB PO SCH (05:30)
[2017-04-24] MEDS: METOPROLOL TARTRATE 25 MG TAB PO SCH ×3 (05:30→21:19)
[2017-04-24] MEDS: FOSPHENYTOIN SODIUM 100 MG PE/2 ML VIAL IV SCH ×3 (05:30→21:20)
[2017-04-24 05:33] LABS: ALKALINE PHOSPHATASE 59 U/L (45-117); ALT (GPT) 19 U/L (12-78); ANION GAP 7 MEQ/L (5-15); AST (GOT) 30 U/L (15-37); BICARBONATE 21.4 MEQ/L (21.0-32.0); BLOOD UREA NITROGEN 11 MG/DL (7-18); CALCIUM-PROTEIN CORRECTED 8.2 MG/DL (8.5-10.1); CHLORIDE 111 MEQ/L (98-107); GLOMERULAR FILTRATION RATE 84 ML/MIN (>89); LDL CHOLESTEROL 100 MG/DL (0-99); MAGNESIUM 1.9 MG/DL (1.5-2.5); POTASSIUM 4.5 MEQ/L (3.5-5.1); SODIUM (NA) 139 MEQ/L (136-145); TOTAL BILIRUBIN ADULT 0.6 MG/DL (0.2-1.0)
[2017-04-24] MEDS: INSULIN ASPART SUPPLEMENTAL SCALE SQ SCH ×4 (05:38→18:00)
[2017-04-24] MEDS: LISINOPRIL 10 MG TAB OG-TUBE SCH ×2 (09:00→21:00)
--- NOTE | 2017-04-24 09:21 | HHI.CCPN ---
Subjective Remarks/Hospital Course This is a 66-year-old male. Date of admission 04/22/2017. Date of consultation 04/22/2017. Past medical history included recent bilateral PENSION EXAMINER CVA, right vertebral artery stenosis around 80%, hypertension, dyslipidemia, hypothyroidism, BPH, seizure, chronic kidney disease, COPD ongoing tobaccoism, prior alcoholism and, atrial fibrillation rate controlled currently on a VKA, patient was admitted 04/03 with diagnosis of the bilateral posterior circulation CVA involving the bilateral mid temporal and right mid cerebellar region. MRI brain 04/17 revealed bilateral PENSION EXAMINER CVA involving the bilateral temporal regions with bilateral cerebellar infarcts. MRA brain revealed absent right sylvian vessel consistent with prior right MCA CVA. 80% right vertebral artery stenosis. Evaluated cardiothoracic surgery and deemed not a surgical candidate. Recommended blood thinner, statin and BP control. Patient is currently residing since 04/20 at [facility] today was noted While at the intermediate, patient became nonverbal today with decreasing mental status, not following commands, groans hence the patient was sent to the hospital. ED evaluation, the patient was nonverbal, groaning, follows simple commands such as squeezing is right handed moving his right leg, but does not move the left leg or left upper extremity. When hospitalist initially saw the patient, he did not follow any commands, groaning, staring in space and nonfocal , poor historian. CT brain revealed cystic encephalomalacia in writing the right frontal, parietal temporal occipital lobes and MC discharge. Ex vacuo right lateral ventricle. Some edema in the right occipital lobe and cytotoxic edema involving right cerebellar/encephalomalacia left cerebellar region. Later , patient developed tachypnea with an acute respiratory alkalosis with a pH of 7.65, PCO2 15. Bicarbonate 16.. Chest x-ray revealed likely aspiration with the left lower/lingular infiltrate. Patient was intubated using etomidate and rocuronium using an 8.0 ET tube. Patient is also noted to have a temperature 103.9. Follow chest x-ray revealed left-sided infiltrates. Patient to start on cefepime, azithromycin and Flagyl. Primary team started Zosyn and vancomycin. Subjective 04/23: Afebrile. Currently withdrawal/moves bilateral looks and spontaneous. No movement bilateral upper extremity. Pupils react. Positive gag reflex. Incidental coffee-ground emesis overnight so heparin drip held. GI will be consulted for possible EGD as patient will need systematically lysed secondary to posterior circulation strokes/acute thrombosis. 04/24 Patient remains sedated with Fentanyl and intubated. On Heparin drip. Objective Vital Signs Date Time Temp Pulse Resp B/P Pulse Ox O2 Delivery O2 Flow Rate FiO2 04/24/17 06:00 54 04/24/17 04:00 97.8 14 98/52 96 04/24/17 04:00 35 04/22/17 17:20 Ventilator 04/22/17 15:16 2 Intake and Output 04/23/17 04/23/17 04/24/17 08:00 16:00 00:00 Intake Total 745 ml 1688 ml 1943 ml Output Total 525 ml 1505 ml 300 ml Balance 220 ml 183 ml 1643 ml Result Diagram: 04/24/17 0428 04/24/17 0428 Other Results Laboratory Tests Test 04/23/17 04/23/17 04/23/17 04/23/17 14:40 14:49 20:57 22:57 Hemoglobin 14.9 GM/DL 13.7 GM/DL Hematocrit 42.7 % 41.3 % Activated Partial 31.0 SEC 54.1 SEC Thromboplast Time Test 04/24/17 04/24/17 04:28 04:55 White Blood Count 10.4 TH/MM3 Red Blood Count 4.30 MIL/MM3 Hemoglobin 12.9 GM/DL Hematocrit 38.3 % Mean Corpuscular Volume 88.9 FL Mean Corpuscular Hemoglobin 29.9 PG Mean Corpuscular Hemoglobin 33.6 % Concent Red Cell Distribution Width 13.8 % Platelet Count 170 TH/MM3 Mean Platelet Volume 6.8 FL Neutrophils (%) (Auto) 75.8 % Lymphocytes (%) (Auto) 11.3 % Monocytes (%) (Auto) 9.7 % Eosinophils (%) (Auto) 2.9 % Basophils (%) (Auto) 0.3 % Neutrophils # (Auto) 7.9 TH/MM3 Lymphocytes # (Auto) 1.2 TH/MM3 Monocytes # (Auto) 1.0 TH/MM3 Eosinophils # (Auto) 0.3 TH/MM3 Basophils # (Auto) 0.0 TH/MM3 CBC Comment DIFF FINAL Differential Comment Prothrombin Time 12.7 SEC Prothromb Time International 1.1 RATIO Ratio Activated Partial 72.5 SEC Thromboplast Time Fibrinogen 359 mg/dL Sodium Level 139 MEQ/L Potassium Level 4.5 MEQ/L Chloride Level 111 MEQ/L Carbon Dioxide Level 21.4 MEQ/L Anion Gap 7 MEQ/L Blood Urea Nitrogen 11 MG/DL Creatinine 0.91 MG/DL Estimat Glomerular Filtration 84 ML/MIN Rate Random Glucose 98 MG/DL Calcium Level 7.2 MG/DL Protein Corrected Calcium 8.2 MG/DL Phosphorus Level 2.9 MG/DL Magnesium Level 1.9 MG/DL Total Bilirubin 0.6 MG/DL Aspartate Amino Transf 30 U/L (AST/SGOT) Alanine Aminotransferase 19 U/L (ALT/SGPT) Alkaline Phosphatase 59 U/L Total Protein 5.3 GM/DL Albumin 2.3 GM/DL Triglycerides Level 116 MG/DL Cholesterol Level 155 MG/DL LDL Cholesterol 100 MG/DL HDL Cholesterol 32.0 MG/DL Cholesterol/HDL Ratio 4.84 RATIO Phenytoin (Dilantin) Level 2.9 MCG/ML Blood Gas Puncture Site RT RADIAL Blood Gas Patient Temperature 98.6 Blood Gas HCO3 19 mmol/L Blood Gas Base Excess -6.6 mmol/L Blood Gas Oxygen Saturation 96 % Arterial Blood pH 7.29 Arterial Blood Partial 40 mmHg Pressure CO2 Arterial Blood Partial 106 mmHg Pressure O2 Arterial Blood Oxygen Content 17.2 Vol % Arterial Blood 1.6 % Carboxyhemoglobin Arterial Blood Methemoglobin 1.0 % Blood Gas Hemoglobin 12.7 G/DL Oxygen Delivery Device VENTILATOR Blood Gas Ventilator Setting PRVC14/500/1.0/+5 Blood Gas Inspired Oxygen 45 % Imaging Last Impressions Chest X-Ray 04/24/17 0600 Signed Impressions: Service Date/Time: Monday, April 24, 2017 03:07 - CONCLUSION: No significant change has occurred. Haroon Pichardo MD Head CT 04/23/17 0000 Signed Impressions: Service Date/Time: Sunday, April 23, 2017 18:44 - CONCLUSION: 1. Evolving infarct in the posterior fossa involving the cerebellar hemisphere on the right and the right caroline with increasing swelling and mass effect with partial effacement of the fourth ventricle and prepontine cistern. Comparison is April 22. Also evolving infarcts again noted in the medial temporal and occipital lobes. Carlos Goyal MD Neck Magnetic Resonance Angiography 04/22/17 0000 Signed Impressions: Service Date/Time: Saturday, April 22, 2017 16:26 - CONCLUSION: Severely compromised posterior circulation with acutely thrombosed bilateral vertebral arteries as described above. No acute anterior circulation abnormality. Rodney Pennington MD Head Magnetic Resonance Angiography 04/22/17 Signed Impressions: Service Date/Time: Saturday, April 22, 2017 16:26 - CONCLUSION: 1. Large acute posterior circulation deficit with essential nonfilling of the visualized vertebral arteries and posterior cerebral arteries. Other than some limited filling of the left anterior, inferior cerebellar artery, the cerebellar arteries also don't fill. 2. Partially occluded distal right middle cerebral artery branches noted but actually improved modestly in the interim. No acute anterior circulation abnormality seen. Rodney Pennington MD Brain MRI 04/22/17 Signed Impressions: Service Date/Time: Saturday, April 22, 2017 16:26 - CONCLUSION: 1. Previous infarct in the right cerebellar hemisphere has extended medially and now involves the right middle cerebellar peduncle and right caroline and extending slightly into the left caroline. The medial temporal and occipital lobe infarcts are relatively stable. Remote right MCA infarct is stable. Carlos Goyal MD Objective Remarks GENERAL: 66-year-old male, critically ill currently orotracheally intubated SKIN: Warm and dry. Currently denies packs in his axillary and inguinal regions HEAD: Atraumatic. Normocephalic. EYES: Pupils equal and round about 3 mm bilaterally and reactive. No scleral icterus. No injection or drainage. ENT: No nasal bleeding or discharge. Mucous membranes pink and moist. Orotracheally intubated NECK: Trachea midline. No JVD. CARDIOVASCULAR: IRR. S1, S2 no S4. Without murmur RESPIRATORY: Coarse crackles appreciated throughout bilateral lung walker left greater than right. No wheezing GASTROINTESTINAL: Abdomen soft, non-tender, nondistended. Hypoactive bowel sounds appreciated MUSCULOSKELETAL: Extremities trace nonpitting lower extremity edema. No obvious deformities. NEUROLOGICAL: Prior to intubation, left upper and lower extremity weakness strength 1 out of 5 and decreased range of motion. Positive dysarthria. Currently withdrawing bilateral lower extremities. Essentially flaccid bilateral upper extremities. Upper toes. Positive corneal reflex. Positive gag. 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 MCA dissipation. Ex vacuo right lateral ventricle. Cytotoxic edema in the right occipital. Stable edema in the right cerebellar/ left cerebellar regions. Dr. Bush/Neurologist consulted. Appreciate recommendations. Recommended systemic anticoagulation with goal systolic blood pressure less than 160 MRI/A brain ordered 04/22 revealed posterior circulation stroke involving involving bilateral pontine cerebellum. Acute thrombosis bilateral vertebral arteries/posterior circulation CVA 04/23 EEG: Severe Encephalopathy Previously on lorazepam 0.5 mill grams by mouth 3 times a day for anxiety Continue Cerebyx 200mg IV Q8, Keppra 500mg BID CV: Hypertension Dyslipidemia Coronary artery disease History of CABG 4 Chronic systolic heart failure On Norvasc 10 mg daily/lisinopril 10 mg BID, metoprolol 12.5 mg Q8 hours, Imdur 10mg Q8 Recent 2-D echocardiogram 04/03 revealed EF 45-50%. Mild LVH. Mild TR. PAP 25 mmHg Resp: Acute hypercapnic respiratory failure - acute respiratory alkalosis COPD PRVC 14.1/500/1.1/45 Ventilator bundle Albuterol/Atrovent nebs every 6 hours with albuterol nebs every 2 hours when necessary breakthrough GI: Coffee-ground emesis Start tube feeds ( Glucerna 1.5 with goal rate 45ml/hr) Pantoprazole 40 mg IV twice a day for GI prophylaxis Docusate sodium/senna twice a day for bowel regimen GI is following.. EGD when stable. : Chronic kidney disease stage II BPH On tamsulosin 0.8 mg by mouth at bedtime Monitor renal function I/O;s, electrolytes replacement per protocol. d/c IVF Endo: Hypothyroidism Continue levothyroxine 75 mcg by tube daily. TSH: 2.34 SSI with NovoLog with Accu-Cheks every 6 hours to maintain euglycemia/low regimen Heme: Chronic vitamin K antagonist usage History of skin cancer Previous warfarin 1 mg by mouth daily. INR currently 1.3. Resume heparin drip if hemoglobin remain stable. Serial H&H's every 8 hours ID: Possible aspiration pneumonia Follow up on BC from 04/22 Check sputum cx Cefepime/azithromycin/metronidazole and vancomycin. Monitor for signs of infections ( Fever, WBC) MSK: PT/OT evaluate and treat Access - Utilize peripheral IV. Central line if indicated Prophylaxis - GI - Protonix - DVT - SCD/heparin drip Critical Care: The total critical care time was 30 minutes. Time to perform other separately billable procedures was not included in the critical care time. Zuly Connelly MD Apr 24, 2017 09:21
[2017-04-24] MEDS: PANTOPRAZOLE SODIUM 40 MG VIAL IV SCH ×2 (09:30→21:14)
[2017-04-24] MEDS: DOCUSATE SODIUM 50 MG/SENNA 8.6 MG TAB PO SCH ×2 (09:31→21:00)
[2017-04-24] MEDS: levETIRAcetam 500 MG TAB PO SCH ×2 (09:31→22:19)
[2017-04-24] MEDS: MULTIVITAMIN TAB PO SCH (09:31)
[2017-04-24] MEDS ORDERED: CALCIUM GLUCONATE INJ 1 GM in SODIUM CHLORIDE 0.9% INJ 100 ML IV ONE (11:00)
[2017-04-24] MEDS: ARTIFICIAL TEARS OPTH SOLN 15 ML BTL EACH EYE SCH ×3 (13:00→18:02)
[2017-04-24 13:04] LABS: BLOOD GAS BASE EXCESS -6.2 mmol/L (-2-2); BLOOD GAS CARBOXYHEMOGLOBIN 1.8 % (0-4); BLOOD GAS HCO3 19 mmol/L (22-26); BLOOD GAS METHEMOGLOBIN 0.9 % (0-2); BLOOD GAS O2 HGB SATURATION 94 % (90-100); BLOOD GAS OXYGEN CONTENT 16.6 Vol % (12.0-20.0); BLOOD GAS PCO2 41 mmHg (38-42); BLOOD GAS PO2 84 mmHg (61-120); BLOOD GAS TOTAL HGB 12.5 G/DL (12.0-16.0); CRITICAL VALUE YES; DRAW SITE RT RADIAL; FIO2 40 %; NUMBER OF ARTERIAL PUNCTURES 1; OXYGEN DEVICE VENT; TEMP CORR TO 98.6; ULNAR PULSE Y; VENT SETTINGS PRVC 14/500/PEEP5
[2017-04-24 13:05] LABS: STAT NO
[2017-04-24] MEDS: SODIUM CHLORIDE 0.9% FLUSH 10 ML FLUSH IV FLUSH SCH ×2 (13:18→21:15)
[2017-04-24 14:11] LABS: APTT (PATIENT) 69.5 SEC (24.3-30.1)
[2017-04-24] MEDS: CHLORHEXIDINE 0.12% (ORAL KIT) 15 ML CUP MT SCH ×2 (14:43→21:14)
--- NOTE | 2017-04-24 14:46 | HHI.GIFU ---
Subjective Remarks intubated on vent. Per RN no signs bleeding. Objective Vitals I&O Vital Signs Date Time Temp Pulse Resp B/P Pulse Ox O2 Delivery O2 Flow Rate FiO2 04/24/17 12:11 95 40 04/24/17 12:00 35 04/24/17 11:13 40 04/24/17 08:00 35 04/24/17 07:15 97 40 04/24/17 06:00 54 04/24/17 04:00 97.8 61 14 98/52 96 04/24/17 04:00 60 04/24/17 04:00 35 04/24/17 03:25 96 45 04/24/17 02:00 58 04/24/17 00:59 96 45 04/24/17 00:00 58 04/24/17 00:00 35 04/24/17 00:00 97.1 60 14 109/56 97 04/23/17 22:00 59 04/23/17 20:00 97.1 64 14 121/60 95 04/23/17 20:00 35 04/23/17 20:00 64 04/23/17 19:26 93 45 04/23/17 19:12 100 100 04/23/17 18:00 56 04/23/17 16:00 61 04/23/17 16:00 97.7 61 14 84/51 94 04/23/17 16:00 35 04/23/17 15:27 92 35 I/O 04/23/17 04/23/17 04/23/17 04/24/17 04/24/17 04/24/17 07:00 15:00 23:00 07:00 15:00 23:00 Intake Total 745 ml 1688 ml 1943 ml 573 ml Output Total 525 ml 1505 ml 300 ml 400 ml Balance 220 ml 183 ml 1643 ml 173 ml Intake Oral 0 ml 0 ml IV Total 745 ml 1688 ml 1943 ml 573 ml Output Urine Total 500 ml 1425 ml 300 ml 350 ml Gastric Drainage Total 25 ml 80 ml 0 ml 50 ml # Bowel Movements 1 0 0 Laboratory Laboratory Tests Test 04/23/17 04/23/17 04/23/17 04/23/17 14:40 14:49 20:57 22:57 Hemoglobin 14.9 13.7 Hematocrit 42.7 41.3 Activated Partial 31.0 54.1 Thromboplast Time Test 04/24/17 04/24/17 04/24/17 04/24/17 04:28 04:55 12:58 13:28 White Blood Count 10.4 Red Blood Count 4.30 Hemoglobin 12.9 Hematocrit 38.3 Mean Corpuscular Volume 88.9 Mean Corpuscular Hemoglobin 29.9 Mean Corpuscular Hemoglobin 33.6 Concent Red Cell Distribution Width 13.8 Platelet Count 170 Mean Platelet Volume 6.8 Neutrophils (%) (Auto) 75.8 Lymphocytes (%) (Auto) 11.3 Monocytes (%) (Auto) 9.7 Eosinophils (%) (Auto) 2.9 Basophils (%) (Auto) 0.3 Neutrophils # (Auto) 7.9 Lymphocytes # (Auto) 1.2 Monocytes # (Auto) 1.0 Eosinophils # (Auto) 0.3 Basophils # (Auto) 0.0 CBC Comment DIFF FINAL Differential Comment Prothrombin Time 12.7 Prothromb Time International 1.1 Ratio Activated Partial 72.5 69.5 Thromboplast Time Fibrinogen 359 Sodium Level 139 Potassium Level 4.5 Chloride Level 111 Carbon Dioxide Level 21.4 Anion Gap 7 Blood Urea Nitrogen 11 Creatinine 0.91 Estimat Glomerular Filtration 84 Rate Random Glucose 98 Calcium Level 7.2 Protein Corrected Calcium 8.2 Phosphorus Level 2.9 Magnesium Level 1.9 Total Bilirubin 0.6 Aspartate Amino Transf 30 (AST/SGOT) Alanine Aminotransferase 19 (ALT/SGPT) Alkaline Phosphatase 59 Total Protein 5.3 Albumin 2.3 Triglycerides Level 116 Cholesterol Level 155 LDL Cholesterol 100 HDL Cholesterol 32.0 Cholesterol/HDL Ratio 4.84 Phenytoin (Dilantin) Level 2.9 3.9 Blood Gas Puncture Site RT RADIAL RT RADIAL Blood Gas Patient Temperature 98.6 98.6 Blood Gas HCO3 19 19 Blood Gas Base Excess -6.6 -6.2 Blood Gas Oxygen Saturation 96 94 Arterial Blood pH 7.29 7.29 Arterial Blood Partial 40 41 Pressure CO2 Arterial Blood Partial 106 84 Pressure O2 Arterial Blood Oxygen Content 17.2 16.6 Arterial Blood 1.6 1.8 Carboxyhemoglobin Arterial Blood Methemoglobin 1.0 0.9 Blood Gas Hemoglobin 12.7 12.5 Oxygen Delivery Device VENTILATOR VENT Blood Gas Ventilator Setting PRVC14/500/1.0/+5 PRVC 14/500/PEEP5 Blood Gas Inspired Oxygen 45 40 Date/Time Procedure Status Source Growth 04/22/17 08:50 Aerobic Blood Culture - Preliminary Resulted Blood Peripheral NO GROWTH IN 2 DAYS 04/22/17 08:50 Anaerobic Blood Culture - Preliminary Resulted Blood Peripheral NO GROWTH IN 2 DAYS Imaging Last Impressions Chest X-Ray 04/24/17 0600 Signed Impressions: Service Date/Time: Monday, April 24, 2017 03:07 - CONCLUSION: No significant change has occurred. Haroon Pichardo MD Head CT 04/23/17 0000 Signed Impressions: Service Date/Time: Sunday, April 23, 2017 18:44 - CONCLUSION: 1. Evolving infarct in the posterior fossa involving the cerebellar hemisphere on the right and the right caroline with increasing swelling and mass effect with partial effacement of the fourth ventricle and prepontine cistern. Comparison is April 22. Also evolving infarcts again noted in the medial temporal and occipital lobes. Carlos Goyal MD Neck Magnetic Resonance Angiography 04/22/17 0000 Signed Impressions: Service Date/Time: Saturday, April 22, 2017 16:26 - CONCLUSION: Severely compromised posterior circulation with acutely thrombosed bilateral vertebral arteries as described above. No acute anterior circulation abnormality. Rodney Pennington MD Head Magnetic Resonance Angiography 04/22/17 0000 Signed Impressions: Service Date/Time: Saturday, April 22, 2017 16:26 - CONCLUSION: 1. Large acute posterior circulation deficit with essential nonfilling of the visualized vertebral arteries and posterior cerebral arteries. Other than some limited filling of the left anterior, inferior cerebellar artery, the cerebellar arteries also don't fill. 2. Partially occluded distal right middle cerebral artery branches noted but actually improved modestly in the interim. No acute anterior circulation abnormality seen. Rodney Pennington MD Brain MRI 04/22/17 0000 Signed Impressions: Service Date/Time: Saturday, April 22, 2017 16:26 - CONCLUSION: 1. Previous infarct in the right cerebellar hemisphere has extended medially and now involves the right middle cerebellar peduncle and right caroline and extending slightly into the left caroline. The medial temporal and occipital lobe infarcts are relatively stable. Remote right MCA infarct is stable. Carlos Goyal MD Physical Exam HEENT: normocephalic; atraumatic; no jaundice. intubated CHEST: coarse CARDIAC: tru ABDOMEN: Soft, nondistended, nontender; no hepatosplenomegaly; bowel sounds are present in all four quadrants. EXTREMITIES: No clubbing, cyanosis, BUE edema, left arm erythematous SKIN: no rash; no jaundice. 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 HH dropped to 12.9. INR 1.1 Has been on Heparin (on hold). Patient with history of alcohol abuse and now drinking occasionally at [facility], per EMR. Protonix IV. 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 History of recent bilateral TRACK AND FIELD COACH CVA. 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 Recommended systemic anticoagulation. Per critical care team. Acute hypercapnic respiratory failure, Orotracheally intubated. Per critical care team. Hypertension, Dyslipidemia, Coronary artery disease, History of CABG 4, Chronic systolic heart failure, BPH, Hypothyroidism, CKD stage II, per critical care team. PLAN - Consider EGD when stable - OGT to LIWS - IV PPI - Monitor HH - Notify GI of active bleeding - Supportive care - Further recommendations to follow based on results of above Patient seen and examined by and myself and this note is written on his behalf. Love Bowman Apr 24, 2017 14:46
[2017-04-24 16:09] LABS: HEMOGLOBIN A1a 1.7 %; HEMOGLOBIN A1b 0.9 %; HEMOGLOBIN Ao 85.3 %; HEMOGLOBIN F 1.3 %; HEMOGLOBIN LA1C 1.6 %; HEMOGLOBIN P3 3.2 %
[2017-04-24] MEDS: VANCOMYCIN INJ 1,500 MG in SODIUM CHLORID 0.9% 500 ML INJ 500 ML IV SCH (18:01)
[2017-04-24] MEDS: AZITHROMYCIN INJ 500 MG in SODIUM CHLOR 0.9% 250 ML INJ 250 ML IV SCH (18:02)
[2017-04-24 21:39] LABS: APTT (PATIENT) 61.6 SEC (24.3-30.1)
[2017-04-24] MEDS: TAMSULOSIN HCL 0.4 MG CAP PO SCH (22:18)
[2017-04-25] VITALS (31 sets, daily range): BP systolic 68–146; BP diastolic 45–67; PULSE 48–104; RESP 14–16; TEMP 97.7–98.6; O2SAT 89–97
[2017-04-25] MEDS: metroNIDAZOLE 500 MG INJ 100 ML IV SCH ×2 (01:31→09:24)
[2017-04-25] MEDS: CEFEPIME INJ 2,000 MG in SODIUM CHLORIDE 0.9% INJ 100 ML IV SCH ×2 (01:32→09:24)
[2017-04-25] MEDS: HEPARIN-D5W INJ 250 ML IV SCH (01:35)
[2017-04-25] MEDS: RESP: ALBUTEROL 2.5 MG/IPRATROPIUM 0.5 MG NEB (SCH) INH ×2 (03:25→09:47)
[2017-04-25] MEDS: CHLORHEXIDINE GLUCONATE 2 % 1 PACK (2 CLOTHS) TOP SCH (04:00)
[2017-04-25 04:16] LABS: AUTOMATED NEUTROPHIL # 8.8 TH/MM3 (1.8-7.7); BASOPHIL % 0.3 % (0.0-2.0); EOSINOPHIL # 0.2 TH/MM3 (0-0.4); EOSINOPHIL % 1.6 % (0.0-4.0); HEMO FLAGS DIFF FINAL; LYMPH % 6.4 % (9.0-44.0); LYMPHOCYTE # 0.7 TH/MM3 (1.0-4.8); MEAN CELL VOLUME 89.5 FL (80.0-100.0); MEAN CORPUSCULAR HEMOGLOBIN 30.7 PG (27.0-34.0); MEAN CORPUSCULAR HGB CONC 34.2 % (32.0-36.0); MONO % 9.7 % (0.0-8.0); PLATELET COUNT 172 TH/MM3 (150-450); RED BLOOD COUNT 4.02 MIL/MM3 (4.50-5.90); RED CELL DISTRIBUTION WIDTH 13.7 % (11.6-17.2); WHITE BLOOD COUNT 10.8 TH/MM3 (4.0-11.0)
[2017-04-25 04:35] LABS: BICARBONATE 20.8 MEQ/L (21.0-32.0); POTASSIUM 4.8 MEQ/L (3.5-5.1)
[2017-04-25 04:52] LABS: APTT (PATIENT) 66.1 SEC (24.3-30.1)
[2017-04-25] MEDS: INSULIN ASPART SUPPLEMENTAL SCALE SQ SCH ×3 (05:44→12:00)
[2017-04-25] MEDS: ISOSORBIDE DINITRATE 10 MG TAB PO SCH ×2 (05:44→14:00)
[2017-04-25] MEDS: LEVOTHYROXINE SODIUM 75 MCG TAB PO SCH (05:44)
[2017-04-25] MEDS: FOSPHENYTOIN SODIUM 100 MG PE/2 ML VIAL IV SCH ×2 (05:44→14:00)
[2017-04-25] MEDS: METOPROLOL TARTRATE 25 MG TAB PO SCH ×2 (05:44→14:00)
[2017-04-25] MEDS ORDERED: DEXT 5%-NACL 0.9% 1000 ML INJ 1,000 ML IV SCH (08:45)
--- NOTE | 2017-04-25 08:47 | HHI.CCPN ---
Subjective Remarks/Hospital Course This is a 66-year-old male. Date of admission 04/22/2017. Date of consultation 04/22/2017. Past medical history included recent bilateral COLOR RECEIVER CVA, right vertebral artery stenosis around 80%, hypertension, dyslipidemia, hypothyroidism, BPH, seizure, chronic kidney disease, COPD ongoing tobaccoism, prior alcoholism and, atrial fibrillation rate controlled currently on a VKA, patient was admitted 04/03 with diagnosis of the bilateral posterior circulation CVA involving the bilateral mid temporal and right mid cerebellar region. MRI brain 04/17 revealed bilateral COLOR RECEIVER CVA involving the bilateral temporal regions with bilateral cerebellar infarcts. MRA brain revealed absent right sylvian vessel consistent with prior right MCA CVA. 80% right vertebral artery stenosis. Evaluated cardiothoracic surgery and deemed not a surgical candidate. Recommended blood thinner, statin and BP control. Patient is currently residing since 04/[address] [facility] today was noted [facility] the [facility], patient became nonverbal today with decreasing mental status, not following commands, groans hence the patient was sent to the hospital. ED evaluation, the patient was nonverbal, groaning, follows simple commands such as squeezing is right handed moving his right leg, but does not move the left leg or left upper extremity. When hospitalist initially saw the patient, he did not follow any commands, groaning, staring in space and nonfocal , poor historian. CT brain revealed cystic encephalomalacia in writing the right frontal, parietal temporal occipital lobes and MC discharge. Ex vacuo right lateral ventricle. Some edema in the right occipital lobe and cytotoxic edema involving right cerebellar/encephalomalacia left cerebellar region. Later , patient developed tachypnea with an acute respiratory alkalosis with a pH of 7.65, PCO2 15. Bicarbonate 16.. Chest x-ray revealed likely aspiration with the left lower/lingular infiltrate. Patient was intubated using etomidate and rocuronium using an 8.0 ET tube. Patient is also noted to have a temperature 103.9. Follow chest x-ray revealed left-sided infiltrates. Patient to start on cefepime, azithromycin and Flagyl. Primary team started Zosyn and vancomycin. Subjective 04/23: Afebrile. Currently withdrawal/moves bilateral looks and spontaneous. No movement bilateral upper extremity. Pupils react. Positive gag reflex. Incidental coffee-ground emesis overnight so heparin drip held. GI will be consulted for possible EGD as patient will need systematically lysed secondary to posterior circulation strokes/acute thrombosis. 04/24 Patient remains sedated with Fentanyl and intubated. On Heparin drip. 04/25 No events overnight, Off sedation. Afebrile. Remains on Heparin drip. Objective Vital Signs Date Time Temp Pulse Resp B/P Pulse Ox O2 Delivery O2 Flow Rate FiO2 04/25/17 06:00 57 04/25/17 04:00 98.1 14 108/56 95 04/25/17 04:00 35 04/22/17 17:20 Ventilator 04/22/17 15:16 2 Intake and Output 04/24/17 04/24/17 04/25/17 08:00 16:00 00:00 Intake Total 573 ml 618 ml 1050 ml Output Total 400 ml 425 ml 300 ml Balance 173 ml 193 ml 750 ml Result Diagram: 04/25/17 0337 04/25/17 0337 Other Results Laboratory Tests Test 04/24/17 04/24/17 04/24/17 04/25/17 12:58 13:28 20:50 03:37 Blood Gas Puncture Site RT RADIAL Blood Gas Patient Temperature 98.6 Blood Gas HCO3 19 mmol/L Blood Gas Base Excess -6.2 mmol/L Blood Gas Oxygen Saturation 94 % Arterial Blood pH 7.29 Arterial Blood Partial 41 mmHg Pressure CO2 Arterial Blood Partial 84 mmHg Pressure O2 Arterial Blood Oxygen Content 16.6 Vol % Arterial Blood 1.8 % Carboxyhemoglobin Arterial Blood Methemoglobin 0.9 % Blood Gas Hemoglobin 12.5 G/DL Oxygen Delivery Device VENT Blood Gas Ventilator Setting PRVC 14/500/PEEP5 Blood Gas Inspired Oxygen 40 % Activated Partial 69.5 SEC 61.6 SEC 66.1 SEC Thromboplast Time Phenytoin (Dilantin) Level 3.9 MCG/ML White Blood Count 10.8 TH/MM3 Red Blood Count 4.02 MIL/MM3 Hemoglobin 12.3 GM/DL Hematocrit 36.0 % Mean Corpuscular Volume 89.5 FL Mean Corpuscular Hemoglobin 30.7 PG Mean Corpuscular Hemoglobin 34.2 % Concent Red Cell Distribution Width 13.7 % Platelet Count 172 TH/MM3 Mean Platelet Volume 7.4 FL Neutrophils (%) (Auto) 82.0 % Lymphocytes (%) (Auto) 6.4 % Monocytes (%) (Auto) 9.7 % Eosinophils (%) (Auto) 1.6 % Basophils (%) (Auto) 0.3 % Neutrophils # (Auto) 8.8 TH/MM3 Lymphocytes # (Auto) 0.7 TH/MM3 Monocytes # (Auto) 1.0 TH/MM3 Eosinophils # (Auto) 0.2 TH/MM3 Basophils # (Auto) 0.0 TH/MM3 CBC Comment DIFF FINAL Differential Comment Sodium Level 138 MEQ/L Potassium Level 4.8 MEQ/L Chloride Level 109 MEQ/L Carbon Dioxide Level 20.8 MEQ/L Anion Gap 8 MEQ/L Blood Urea Nitrogen 14 MG/DL Creatinine 1.21 MG/DL Estimat Glomerular Filtration 60 ML/MIN Rate Random Glucose 105 MG/DL Calcium Level 7.5 MG/DL Imaging Last Impressions Chest X-Ray 04/24/17 0600 Signed Impressions: Service Date/Time: Monday, April 24, 2017 03:07 - CONCLUSION: No significant change has occurred. Haroon Pichardo MD Head CT 04/23/17 0000 Signed Impressions: Service Date/Time: Sunday, April 23, 2017 18:44 - CONCLUSION: 1. Evolving infarct in the posterior fossa involving the cerebellar hemisphere on the right and the right caroline with increasing swelling and mass effect with partial effacement of the fourth ventricle and prepontine cistern. Comparison is April 22. Also evolving infarcts again noted in the medial temporal and occipital lobes. Carlos Goyal MD Neck Magnetic Resonance Angiography 04/22/17 0000 Signed Impressions: Service Date/Time: Saturday, April 22, 2017 16:26 - CONCLUSION: Severely compromised posterior circulation with acutely thrombosed bilateral vertebral arteries as described above. No acute anterior circulation abnormality. Rodney Pennington MD Head Magnetic Resonance Angiography 04/22/17 0000 Signed Impressions: Service Date/Time: Saturday, April 22, 2017 16:26 - CONCLUSION: 1. Large acute posterior circulation deficit with essential nonfilling of the visualized vertebral arteries and posterior cerebral arteries. Other than some limited filling of the left anterior, inferior cerebellar artery, the cerebellar arteries also don't fill. 2. Partially occluded distal right middle cerebral artery branches noted but actually improved modestly in the interim. No acute anterior circulation abnormality seen. Rodney Pennington MD Brain MRI 04/22/17 0000 Signed Impressions: Service Date/Time: Saturday, April 22, 2017 16:26 - CONCLUSION: 1. Previous infarct in the right cerebellar hemisphere has extended medially and now involves the right middle cerebellar peduncle and right caroline and extending slightly into the left caroline. The medial temporal and occipital lobe infarcts are relatively stable. Remote right MCA infarct is stable. Carlos Goyal MD Objective Remarks GENERAL: 66-year-old male, critically ill currently orotracheally intubated SKIN: Warm and dry. Currently denies packs in his axillary and inguinal regions HEAD: Atraumatic. Normocephalic. EYES: Pupils equal and round about 3 mm bilaterally and reactive. No scleral icterus. No injection or drainage. ENT: No nasal bleeding or discharge. Mucous membranes pink and moist. Orotracheally intubated NECK: Trachea midline. No JVD. CARDIOVASCULAR: IRR. S1, S2 no S4. Without murmur RESPIRATORY: Coarse crackles appreciated throughout bilateral lung walker left greater than right. No wheezing GASTROINTESTINAL: Abdomen soft, non-tender, nondistended. Hypoactive bowel sounds appreciated MUSCULOSKELETAL: Extremities trace nonpitting lower extremity edema. No obvious deformities. NEUROLOGICAL: Intubated, unresponsive , no corneal reflex, gag reflex, pupils dilated and fixed. A/P Assessment and Plan Neuro/Psych: Acute COLOR RECEIVER CVA - thrombosed bilateral vertebral arteries acute History of recent bilateral COLOR RECEIVER CVA History of right MCA CVA with left upper and lower extremity hemiparesis status post CABG 4 Chronic lorazepam use Off sedation monitor neuro status and avoid sedatives CT brain revealed cystic encephalomalacia involving the right frontal/parietal/ temporal occipital lobes. MCA dissipation. Ex vacuo right lateral ventricle. Cytotoxic edema in the right occipital. Stable edema in the right cerebellar/ left cerebellar regions. Dr. Bush/Neurologist consulted. Appreciate recommendations. Recommended systemic anticoagulation with goal systolic blood pressure less than 160 MRI/A brain ordered 04/22 revealed posterior circulation stroke involving involving bilateral pontine cerebellum. Acute thrombosis bilateral vertebral arteries/posterior circulation CVA 04/23 EEG: Severe Encephalopathy Previously on lorazepam 0.5 mill grams by mouth 3 times a day for anxiety Continue Cerebyx 200mg IV Q8 ( Dilantin level 3.9 today), Keppra 500mg BID CV: Hypertension Dyslipidemia Coronary artery disease History of CABG 4 Chronic systolic heart failure On Norvasc 10 mg daily/lisinopril 10 mg BID, metoprolol 12.5 mg Q8 hours, Imdur 10mg Q8 Recent 2-D echocardiogram 04/03 revealed EF 45-50%. Mild LVH. Mild TR. PAP 25 mmHg Resp: Acute hypercapnic respiratory failure - acute respiratory alkalosis COPD PRVC 14.1/500/1.1/ Continue with vent support keep sat >92% Ventilator bundle, SBT trials as michaelle. Albuterol/Atrovent nebs every 6 hours with albuterol nebs every 2 hours when necessary breakthrough GI: Coffee-ground emesis Continue tube feeds ( Glucerna 1.5 with goal rate 45ml/hr) Pantoprazole 40 mg IV twice a day for GI prophylaxis Docusate sodium/senna twice a day for bowel regimen GI is following.. EGD when stable. : Chronic kidney disease stage II BPH On tamsulosin 0.8 mg by mouth at bedtime Monitor renal function I/O;s, electrolytes replacement per protocol. Start D5NS@42ml/hr Endo: Hypothyroidism Continue levothyroxine 75 mcg by tube daily. TSH: 2.34 SSI with NovoLog with Accu-Cheks every 6 hours to maintain euglycemia/low regimen Heme: Chronic vitamin K antagonist usage History of skin cancer Monitor CBC, coags, on heparin drip ID: Possible aspiration pneumonia Follow up on BC from 04/22- NGTD Check sputum cx Cefepime/azithromycin/metronidazole and vancomycin. Monitor for signs of infections ( Fever, WBC) MSK: PT/OT evaluate and treat Access - Utilize peripheral IV. Prophylaxis - GI - Protonix - DVT - SCD/heparin drip Consult palliative care to asses with goals of care Spoke to patient's brother Jg Blanco and rest of family's members they are all agreeable to no code DNR ( no cardiac resuscitation in event of cardiac arrest) He is also agreeable to withdrawal life support and transition to comfort care only. Will proceed as requested. Code status witnessed by patient's nurse (Sowmya) also discussed with Dr. Harris. Patient is critically ill with resp failure, large right sided CVA and now bradycardic and hypotensive started on Dopamine. CCT 30 mins Zuly Connelly MD Apr 25, 2017 08:47
[2017-04-25] MEDS ORDERED: SODIUM CHLORID 0.9% 500 ML INJ 500 ML IV ONE ×3 (09:00→12:00)
[2017-04-25] MEDS: LISINOPRIL 10 MG TAB OG-TUBE SCH (09:00)
[2017-04-25] MEDS: PANTOPRAZOLE SODIUM 40 MG VIAL IV SCH (09:22)
[2017-04-25] MEDS: MULTIVITAMIN TAB PO SCH (09:22)
[2017-04-25] MEDS: levETIRAcetam 500 MG TAB PO SCH (09:22)
[2017-04-25] MEDS: DOCUSATE SODIUM 50 MG/SENNA 8.6 MG TAB PO SCH (09:22)
[2017-04-25] MEDS: SODIUM CHLORIDE 0.9% FLUSH 10 ML FLUSH IV FLUSH SCH (09:23)
[2017-04-25 09:24] LABS: APTT (PATIENT) 61.1 SEC (24.3-30.1)
[2017-04-25] MEDS: CHLORHEXIDINE 0.12% (ORAL KIT) 15 ML CUP MT SCH (09:24)
[2017-04-25] MEDS: ARTIFICIAL TEARS OPTH SOLN 15 ML BTL EACH EYE SCH ×2 (09:25→13:00)
[2017-04-25] MEDS ORDERED: DOPamine INJ PREMIX 500 ML ONE (14:42)
[2017-04-25] MEDS ORDERED: DOPamine INJ PREMIX 500 ML IV SCH (14:45)
[2017-04-25] MEDS ORDERED: TERBUTALINE INJ 1 MG/ML AMP SQ PRN (14:45)
--- NOTE | 2017-04-25 15:08 | PD.CONS ---
Consult Service Palliative Care Consult Requested By Dr. Connelly . Primary Care Physician Unknown . Reason for Consultation a. To assist with evaluation and management of symptoms including: dyspnea ; encephalopathy b. To assist medical decision maker(s) with: better understanding of current medical conditions; weighing benefits/burdens of medical treatment options; making medical treatment decisions. HPI History of Present Illness Mr. Blanco is a 66 y/o M with a known history of prior stroke; atrial fibrillation; COPD; coronary artery disease; hypertension; and myocardial infarction who was transferred by EMS from his rehab facility to [facility] Emergency Dept on 04/22/17 because of altered mental status. The patient had just been hospitalized at [facility] from 04/17/17 through for an acute posterior circulation stroke in which imaging revealed severe >80% stenosis of the distal right vertebral artery and absent flow in the distal left vertebral artery. At time of hospital discharge, the patient reportedly was able to speak with some dysarthria. When EMS arrived at the facility to pick the patient up on 04/22/17 GCS score was 10 and upon their arrival. By the time the patient arrived in the emergency department he was nonverbal, groaning but able to follow some simple commands--squeezing with his right hand and moving his right leg. There is no movement on the left side. Initial vital signs in the emergency department on 04/22/17 were stolen > pulse 84; respiratory rate 24; blood pressure 204/109; pulse oximetry 98%; temperature 98.4 Initial examination by the emergency millinery department manager noted the following > patient was lethargic with his eyes closed. He was nonverbal but would groan. He was able to withdraw to pain. Pupils were equal with a slight disconjugate gaze. Patient was tachypneic with a respiratory rate of 24. There were diminished breath sounds with rhonchi in the bases. Cardiovascular exam was unremarkable as was abdominal exam. Contractures of the left hand were noted and there was mild edema of the right forearm. The patient was able to squeeze the right hand on command and moves the right foot on command was unable to withdraw the left upper extremity to pain. Initial diagnostic tests included the following: * CBC showed WBC 9.6; hemoglobin 16.9; platelet count 234 * Coagulation profile showed PT 15.0; INR 1.3 * Chemistry profile showed sodium 133; potassium 3.7; chloride 98; CO2 25.7; anion gap 19; BUN 14; creatinine 1.11; GFR 66; glucose 104; lactic acid 1.7; calcium 8.3 * Liver function studies were unremarkable * Troponin was less than 0.02 * Urinalysis was remarkable only for 40 mg/dL of ketones and 30 mg/dL protein * EKG showed normal sinus rhythm with a rate of 83. There are Q waves noted in leads 2, 3, and aVF. There were inverted T waves in leads V3, V4, V5, and V6 * CT of the head showed a stable noncontrast head CT with cytotoxic edema in the occipital lobes bilaterally and in the right cerebellum. * Chest x-ray showed under inflation with atelectasis versus airspace consolidation at the left base. The patient was given intravenous labetalol to address the elevated blood pressure. With inadequate response, Vasotec was given intravenously. The patient declined in the emergency department. Arterial blood gases on O2 via nasal cannula at 2 L a minute showed pH 7.65; PCO2 15; PO2 62; bicarbonate 16; base excess -4.6. He then developed a fever of 103.2. Critical care was consulted. The patient was intubated and ultimately transferred to the medical intensive care unit. MRI showed the previous infarct in the right cerebellar hemisphere had extended medially and went on to involve the right middle cerebellar peduncle and right caroline and extending slightly into the left caroline. MRA angiogram of the neck showed acutely thrombosed bilateral vertebral arteries. Neurology was consulted. The patient was felt not to be a candidate for TPA because of the time factor as well as because of his recent stroke. The patient went on to develop coffee-ground emesis. Gastroenterology was consulted. The patient reportedly had a history of alcohol abuse and was on anticoagulants. EGD, however, was postponed because of the patient's clinical status. Blood cultures from admission have shown no growth. EEG performed on 04/23/17 showed no epileptiform discharges. The study was consistent with severe encephalopathy however. Dr. Connelly has notified me today that the patient is no longer able to breathe over the ventilator and has lost his gag reflex. There is concern that he may be progressing to brain . . Function/Cognitive Trajectory Mr. Blanco has been cared for in a facility for approximately 10 years. He developed left sided hemiplegia after his first stroke (at time of his bypass surgery). Prior to this recent major stroke we would propel himself around his facility in a wheelchair. He required help with transfers and with bathing. He recognized loved ones and could converse. He was not in chronic pain. . Review of Systems ROS Limitations: Clinical Condition, Intubated Constitutional: COMPLAINS OF: Fatigue, Fever, Pain, Generalized weakness Eyes: COMPLAINS OF: Vision loss, DENIES: Diplopia Ears, nose, mouth, throat: DENIES: Throat pain Respiratory: COMPLAINS OF: Shortness of breath, DENIES: Cough (Patient is unable to provide his own ROS. ROS obtained as best as possible from medical record. Family live out of town and are uncertain. ) Cardiovascular: COMPLAINS OF: Dyspnea on Exertion Gastrointestinal: DENIES: Abdominal pain Neurologic: COMPLAINS OF: Seizures, DENIES: Headache Psychiatric: COMPLAINS OF: Depression Past Family Social History Coded Allergies: Contrast Media (Verified Allergy, Severe, Rash, 04/22/17) Past Medical History CVA with left-sided hemiparesis approximately 10 years ago Atrial fibrillation Hyperlipidemia COPD CAD BPH Hypertension Myocardial infarction Renal insufficiency Seizures Hypothyroidism Chronic kidney disease Hx of Alcoholism . Past Surgical History * Repair of abdominal aortic aneurysm * Coronary artery bypass graft 4 (had his first stroke at the time of this surgery) * Reduction and repair of incarcerated right inguinal hernia with mesh . Reported Medications Prehospitalization medications included the following: Toprol XL (Metoprolol Succinate) 100 Mg Tab 100 Mg PO DAILY Lorazepam 0.5 Mg Tab 0.5 Mg PO TID Tamsulosin (Tamsulosin HCl) 0.4 Mg Cap 0.8 Mg PO HS Levothyroxine (Levothyroxine Sodium) 75 Mcg Tab 75 Mcg PO DAILY Levetiracetam 500 Mg Tab 500 Mg PO BID Potassium Chloride ER (Potassium Chloride) 20 Meq Tab 20 Meq PO DAILY Isosorbide Mononitrate ER (Isosorbide Mononitrate) 30 Mg Michael 30 Mg PO BID Acetaminophen 325 Mg Capsule 650 Mg PO Q4HR PRN Lisinopril 20 Mg Tab 20 Mg PO DAILY Phenytoin Liq (Phenytoin) 125 Mg/5 Ml Heidy 100 Mg PO BID Phenytoin Liq (Phenytoin) 125 Mg/5 Ml Heidy 200 Mg PO HS Warfarin 1 Mg Tab 1 Mg PO DAILY Amlodipine (Amlodipine Besylate) 10 Mg Tab 10 Mg PO DAILY Josh Multivitamin with Mineral (Multivitamin with Minerals) 1 Each Tablet 1 Tab PO DAILY Bisacodyl Laxative Supp (Bisacodyl) 10 Mg Supp 10 Mg RECTAL DAILY PRN Carlos A Protect (Skin Protectants, Misc.) 1 Cre Cre Unknown Dose TP TID . Current Medications Medications (Trade) Dose Ordered Sig/Ada Route Start Time Stop Time Status Last Admin (Vasotec Inj) 1.25 mg Q6H PRN IV 04/22/17 16:00 04/23/17 09:23 (Imdur) 30 mg BID PO 04/22/17 14:30 Hold (Keppra) 500 mg BID PO 04/22/17 21:00 04/25/17 09:22 (Synthroid) 75 mcg DAILY@06 PO 04/23/17 06:00 04/25/17 05:44 (Flomax) 0.8 mg HS PO 04/22/17 21:00 04/24/17 22:18 Multivitamins 1 tab 1 tab DAILY PO 04/23/17 09:00 04/25/17 09:22 (Nitroglycerin-Dextrose Inj) 250 ml @ 0 mls/hr TITRATE IV 04/22/17 13:00 (NS Flush) 2 ml UNSCH PRN IV FLUSH 04/22/17 15:45 04/23/17 09:23 (NS Flush) 2 ml BID IV FLUSH 04/22/17 21:00 04/25/17 09:23 (Tylenol) 650 mg Q6H PRN OG-TUBE 04/22/17 15:45 (Versed Inj) 2 mg Q1H PRN IV 04/22/17 15:45 (Tears Naturale Opth Soln) 1 drop TID EACH EYE 04/22/17 18:00 04/25/17 13:00 (Zofran Inj) 4 mg Q6H PRN IV 04/22/17 15:45 04/23/17 09:23 Miscellaneous Information 1 Q361D XX 04/22/17 15:45 (Chlorhexidine 2% Cloth) 3 pack Taper DAILY@04 TOP 04/23/17 04:00 04/19/18 03:59 04/25/17 04:00 (Chlorhexidine 2% Cloth) 3 pack UNSCH PRN TOP 04/22/17 15:45 (Nandini-Colace) 1 tab BID PO 04/22/17 21:00 04/25/17 09:22 (Milk Of Magnganesh Liq) 30 ml Q12H PRN PO 04/22/17 15:45 (Senokot) 17.2 mg Q12H PRN PO 04/22/17 15:45 (Dulcolax Supp) 10 mg DAILY PRN RECTAL 04/22/17 15:45 Lactulose 30 ml 30 ml DAILY PRN PO 04/22/17 15:45 Propofol 100 ml @ 0 mls/hr TITRATE IV 04/22/17 15:45 04/23/17 10:18 Fentanyl Citrate 250 ml @ 0 mls/hr TITRATE IV 04/22/17 15:45 04/23/17 12:27 Potassium Chloride 100 ml @ 50 mls/hr Q2H PRN IV 04/22/17 15:45 (KCl 20 Meq Premix Inj) 100 ml @ 50 mls/hr Q2H PRN IV 04/22/17 15:45 Potassium Bicarb/ Potassium Chloride 50 meq 50 meq UNSCH PRN PO 04/22/17 15:45 Potassium Chloride 100 ml @ 25 mls/hr UNSCH PRN IV 04/22/17 15:45 Potassium Chloride 100 ml @ 50 mls/hr Q2H PRN IV 04/22/17 15:45 04/23/17 09:22 (Magnesium Sulfate Inj/NS Inj) 100 ml @ 50 mls/hr UNSCH PRN IV 04/22/17 15:45 Magnesium Oxide 800 mg 800 mg UNSCH PRN PO 04/22/17 15:45 (Magnesium Sulfate Inj/NS Inj) 100 ml @ 50 mls/hr UNSCH PRN IV 04/22/17 15:45 Potassium Phosphate 2000 mg 2,000 mg Q4H PRN PO 04/22/17 15:45 (Sodium Phosphate Inj/NS 250 ml Inj) 250 ml @ 42 mls/hr UNSCH PRN IV 04/22/17 15:45 Potassium Phosphate 2000 mg 2,000 mg UNSCH PRN PO/TUBE 04/22/17 15:45 (Potassium Phosphate Inj/NS 250 ml Inj) 260 ml @ 42 mls/hr UNSCH PRN IV 04/22/17 15:45 (D50w (Vial) Inj) 50 ml UNSCH PRN IV 04/22/17 15:45 (Glucagon Inj) 1 mg UNSCH PRN OTHER 04/22/17 15:45 (NovoLOG SUPPLEMENTAL SCALE) 1 Q6HR SQ 04/22/17 18:00 (Peridex 0.12% Liq) 15 ml BID@08,20 MT 04/22/17 20:00 04/25/17 09:24 (Norvasc) 10 mg DAILY OG-TUBE 04/23/17 09:00 04/23/17 09:18 Lisinopril 10 mg 10 mg BID OG-TUBE 04/22/17 21:00 04/23/17 21:28 Cefepime HCl 2000 mg/Sodium Chloride 100 ml @ 200 mls/hr Q8H IV 04/22/17 17:00 04/25/17 09:24 Azithromycin 500 mg/Sodium Chloride 250 ml @ 250 mls/hr Q24H IV 04/22/17 18:00 04/24/17 18:02 (Flagyl 500 Mg Inj) 100 ml @ 100 mls/hr Q8H IV 04/22/17 17:00 04/25/17 09:24 (Isordil) 10 mg Q8HR PO 04/22/17 22:00 04/25/17 05:44 (Lopressor) 12.5 mg Q8HR PO 04/22/17 22:00 04/23/17 21:28 (Nitroglycerin 2% Oint) 2 inch Q6HR PRN TOPICAL 04/22/17 16:00 (Apresoline Inj) 10 mg Q1HR PRN IV PUSH 04/22/17 16:00 04/23/17 09:24 Labetalol HCl 10 mg 10 mg Q1HR PRN IV PUSH 04/22/17 16:00 Vancomycin HCl 1500 mg/Sodium Chloride 515 ml @ 257.5 mls/ hr Q24H IV 04/22/17 18:00 04/24/17 18:01 (Heparin-D5W Inj) 250 ml @ 0 mls/hr TITRATE IV 04/22/17 18:00 04/25/17 01:35 (Protonix Inj) 40 mg Q12HR IV 04/23/17 09:00 04/25/17 09:22 Fosphenytoin Sodium 200 mgpe 200 mgpe Q8HR IV 04/23/17 14:00 04/25/17 05:44 (D5W-NS 1000 ml Inj) 1,000 ml @ 42 mls/hr [id number] IV 04/25/17 08:45 04/25/17 09:24 . Family History The patient's mother of heart disease. The patient's father of complications of Alzheimer's disease. The family history is quite positive for heart disease, hypertension, and diabetes. . Substance Use Tobacco: Patient was approximately a 2 pack per day smoker for most of his adult life. Alcohol: Hx of alocholism -- but no significant drinking for several years ( since his major stroke approximately 10 years ago) Prescription med abuse: No known abuse Illicits: No known use of illicits. . Psychosocial History The patient is originally from [place], [place]. He was raised in [place], [place] He completed high school and got an associates degree in [employer]. The patient worked in multiple occupations. 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 The patient was and 4 times. He has 2 children. He has a son who he keeps in touch with and a daughter who is estranged. Family do not know her whereabouts or contact information. The patient's brother, Jg Chapman, has served as the patient's financial power of insurance attorney. Another brother is . He has 2 living sisters. . . Spiritual/Cultural Factors The patient identifies as Voodoo. Holiness and spirituality have been an important part of his life. He frequently sang in judaism. . Living Will: Never completed Health Care Surrogate: Never completed Durable Power of Demo Event Specialist: Copy in medical record Date completed: There is a DURABLE POWER OF FLAT FINISHER document scanned into the electronic medical record dated 08/21/2008. Unfortunately, this is a DURABLE POWER OF FLAT FINISHER for financial matters only, and does not mention healthcare decision- making. . Health Care Surrogate(s): There is no written designation of health care surrogate. . Documented care wishes: There is no written documentation of health care preferences/goals other then the patient had signed up in the [place] organ donor Registry in 2002. . Today's verbally stated goals: Patient is unable to verbally state his health care goals. There is no reasonable medical probability that he will be able to do so in the future. . Family/friends goals: The patient's brother, sister, a niece, and the patient's son are present. All believe strongly that given the patient's current medical condition and prognosis that he would not want to prolong his dying process. They advocate that the patient forego further aggressive care, withdraw life support, and transition to "comfort measures only." . Ethical and Legal Issues Patient is incapacitated to make his own health care decisions. There is no reasonable medical probability that he will regain such capacity. Under the [place] statutes, proxy healthcare decision-making would fall to the patient's adult son ( he has been estranged from the daughter and we have no contact information for her). . Physical Exam Vital Signs Date Time Temp Pulse Resp B/P Pulse Ox O2 Delivery O2 Flow Rate FiO2 04/25/17 13:14 94 50 04/25/17 09:45 95 40 04/25/17 07:25 94 40 04/25/17 07:25 40 04/25/17 06:00 57 04/25/17 04:00 98.1 64 14 108/56 95 04/25/17 04:00 64 04/25/17 04:00 35 04/25/17 03:26 95 40 04/25/17 02:00 55 04/25/17 00:00 35 04/25/17 00:00 98.6 60 14 98/50 95 04/25/17 00:00 60 04/24/17 23:48 94 40 04/24/17 22:00 62 04/24/17 20:23 94 40 04/24/17 20:00 35 04/24/17 20:00 63 04/24/17 20:00 98.8 63 14 108/59 94 04/24/17 18:00 63 04/24/17 16:00 35 04/24/17 16:00 97.1 63 14 124/60 94 04/24/17 16:00 63 04/24/17 15:26 94 40 . 04/24/17 04/25/17 19:00 07:00 Intake Total 618 ml 1529 ml Output Total 425 ml 500 ml Balance 193 ml 1029 ml IV Total 618 ml 1509 ml Tube Feeding 20 ml Output Urine Total 425 ml 500 ml # Bowel Movements 0 0 . Exam CONSTITUTIONAL/GENERAL: This is an adequately nourished patient, unresponsive off sedation, intubated, mechanically ventilated in a medical intensive care unit bed. No signs of distress. TUBES/LINES/DRAINS: Orotracheal tube; orogastric tube; peripheral IV's; Dunlap catheter; SCDs SKIN: No jaundice, rashes, or lesions. Ecchymoses on upper extremities. No wounds seen anteriorly. Skin temperature appropriate. Not diaphoretic. HEAD: Atraumatic. Normocephalic. EYES: Pupils fixed and dilated.. No extraocular movements. No scleral icterus. No injection or drainage. Fundi not examined. ENT: Unable to assess hearing.. Nose without bleeding or purulent drainage. Throat without visible erythema, exudates, masses, or lesions of difficult to visualize well due to intubations. NECK: Trachea midline. No palpable thyroid enlargement or nodularity. CARDIOVASCULAR: Regular rate and rhythm without murmurs, gallops, or rubs. No JVD. Peripheral pulses barely palpable but symmetric. RESPIRATORY/CHEST: Symmetric, unlabored respirations on the ventilator. Crackles heard bilaterally. No wheezing. Breath sounds equal bilaterally. GASTROINTESTINAL: Abdomen soft, non-tender, nondistended. No hepato-splenomegaly , or palpable masses. No guarding. Bowel sounds hypoactive. GENITOURINARY: Without palpable bladder distension. Dunlap catheter in place. MUSCULOSKELETAL: Extremities without clubbing, cyanosis. Trace pedal edema. No joint tenderness or effusion noted. Some visible mottling on the right foot. LYMPHATICS: No palpable cervical or supraclavicular adenopathy. NEUROLOGICAL: Unresponsive. Does not withdraw to noxious stimulus. No spontaneous movements. No seizure activity noted. PSYCHIATRIC: Unable to assess due to level of responsiveness . Diagnostic Tests Laboratory Laboratory Tests Test 04/22/17 04/22/17 04/22/17 04/22/17 15:50 17:34 17:50 18:22 Salicylates Level LESS THAN 1.7 MG/DL (2.8-20.0) Blood Gas Puncture Site RT RADIAL Blood Gas Patient Temperature 98.6 Blood Gas HCO3 18 mmol/L (22-26) Blood Gas Base Excess -5.7 mmol/L (-2-2) Blood Gas Oxygen Saturation 96 % (90-100) Arterial Blood pH 7.40 (7.380-7.420) Arterial Blood Partial 30 mmHg (38-42) Pressure CO2 Arterial Blood Partial 116 mmHg Pressure O2 (61-120) Arterial Blood Oxygen Content 22.3 Vol % (12.0-20.0) Arterial Blood 1.3 % (0-4) Carboxyhemoglobin Arterial Blood Methemoglobin 1.0 % (0-2) Blood Gas Hemoglobin 16.4 G/DL (12.0-16.0) Oxygen Delivery Device VENTILATOR Blood Gas Ventilator Setting PRVC/AC 500/12 Blood Gas Inspired Oxygen 40 % Nasal Screen MRSA (PCR) MRSA NOT DETECTED (NOT DETECT) Ammonia 19 MCMOL/L (11-32) Total Creatine Kinase 183 U/L (39-308) Troponin I 0.04 NG/ML (0.02-0.05) Test 04/22/17 04/22/17 04/23/17 04/23/17 18:27 19:13 01:24 05:00 White Blood Count 19.5 TH/MM3 12.5 TH/MM3 (4.0-11.0) (4.0-11.0) Red Blood Count 5.12 MIL/MM3 5.12 MIL/MM3 (4.50-5.90) (4.50-5.90) Hemoglobin 15.6 GM/DL 15.3 GM/DL (13.0-17.0) (13.0-17.0) Hematocrit 44.1 % 45.0 % (39.0-51.0) (39.0-51.0) Mean Corpuscular Volume 86.2 FL 87.9 FL (80.0-100.0) (80.0-100.0) Mean Corpuscular Hemoglobin 30.4 PG 29.8 PG (27.0-34.0) (27.0-34.0) Mean Corpuscular Hemoglobin 35.3 % 33.9 % Concent (32.0-36.0) (32.0-36.0) Red Cell Distribution Width 13.0 % 13.8 % (11.6-17.2) (11.6-17.2) Platelet Count 208 TH/MM3 176 TH/MM3 (150-450) (150-450) Mean Platelet Volume 6.9 FL 6.4 FL (7.0-11.0) (7.0-11.0) Levetiracetam (Keppra) Level <2.0 mcg/mL (12.0 - 46.0) Prothrombin Time 17.1 SEC 14.7 SEC (9.8-11.6) (9.8-11.6) Prothromb Time International 1.5 RATIO 1.3 RATIO Ratio Activated Partial 35.7 SEC 30.1 SEC Thromboplast Time (24.3-30.1) (24.3-30.1) Troponin I 0.05 NG/ML (0.02-0.05) Neutrophils (%) (Auto) 74.0 % (16.0-70.0) Lymphocytes (%) (Auto) 13.7 % (9.0-44.0) Monocytes (%) (Auto) 10.1 % (0.0-8.0) Eosinophils (%) (Auto) 1.9 % (0.0-4.0) Basophils (%) (Auto) 0.3 % (0.0-2.0) Neutrophils # (Auto) 9.3 TH/MM3 (1.8-7.7) Lymphocytes # (Auto) 1.7 TH/MM3 (1.0-4.8) Monocytes # (Auto) 1.3 TH/MM3 (0-0.9) Eosinophils # (Auto) 0.2 TH/MM3 (0-0.4) Basophils # (Auto) 0.0 TH/MM3 (0-0.2) CBC Comment DIFF FINAL Differential Comment Sodium Level 138 MEQ/L (136-145) Potassium Level 3.3 MEQ/L (3.5-5.1) Chloride Level 106 MEQ/L (98-107) Carbon Dioxide Level 21.8 MEQ/L (21.0-32.0) Anion Gap 10 MEQ/L (5-15) Blood Urea Nitrogen 12 MG/DL (7-18) Creatinine 1.03 MG/DL (0.60-1.30) Estimat Glomerular Filtration 72 ML/MIN (>89) Rate Random Glucose 111 MG/DL (74-106) Lactic Acid Level 0.8 mmol/L (0.4-2.0) Calcium Level 7.2 MG/DL (8.5-10.1) Protein Corrected Calcium 7.5 MG/DL (8.5-10.1) Phosphorus Level 2.5 MG/DL (2.5-4.9) Magnesium Level 2.0 MG/DL (1.5-2.5) Total Bilirubin 0.8 MG/DL (0.2-1.0) Aspartate Amino Transf 33 U/L (15-37) (AST/SGOT) Alanine Aminotransferase 28 U/L (12-78) (ALT/SGPT) Alkaline Phosphatase 79 U/L (45-117) Total Protein 6.5 GM/DL (6.4-8.2) Albumin 2.9 GM/DL (3.4-5.0) Phenytoin (Dilantin) Level 3.1 MCG/ML (10.0-20.0) Test 04/23/17 04/23/17 04/23/17 04/23/17 14:40 14:49 20:57 22:57 Hemoglobin 14.9 GM/DL 13.7 GM/DL (13.0-17.0) (13.0-17.0) Hematocrit 42.7 % 41.3 % (39.0-51.0) (39.0-51.0) Activated Partial 31.0 SEC 54.1 SEC Thromboplast Time (24.3-30.1) (24.3-30.1) Test 04/24/17 04/24/17 04/24/17 04/24/17 04:28 04:55 12:58 13:28 White Blood Count 10.4 TH/MM3 (4.0-11.0) Red Blood Count 4.30 MIL/MM3 (4.50-5.90) Hemoglobin 12.9 GM/DL (13.0-17.0) Hematocrit 38.3 % (39.0-51.0) Mean Corpuscular Volume 88.9 FL (80.0-100.0) Mean Corpuscular Hemoglobin 29.9 PG (27.0-34.0) Mean Corpuscular Hemoglobin 33.6 % Concent (32.0-36.0) Red Cell Distribution Width 13.8 % (11.6-17.2) Platelet Count 170 TH/MM3 (150-450) Mean Platelet Volume 6.8 FL (7.0-11.0) Neutrophils (%) (Auto) 75.8 % (16.0-70.0) Lymphocytes (%) (Auto) 11.3 % (9.0-44.0) Monocytes (%) (Auto) 9.7 % (0.0-8.0) Eosinophils (%) (Auto) 2.9 % (0.0-4.0) Basophils (%) (Auto) 0.3 % (0.0-2.0) Neutrophils # (Auto) 7.9 TH/MM3 (1.8-7.7) Lymphocytes # (Auto) 1.2 TH/MM3 (1.0-4.8) Monocytes # (Auto) 1.0 TH/MM3 (0-0.9) Eosinophils # (Auto) 0.3 TH/MM3 (0-0.4) Basophils # (Auto) 0.0 TH/MM3 (0-0.2) CBC Comment DIFF FINAL Differential Comment Prothrombin Time 12.7 SEC (9.8-11.6) Prothromb Time International 1.1 RATIO Ratio Activated Partial 72.5 SEC 69.5 SEC Thromboplast Time (24.3-30.1) (24.3-30.1) Fibrinogen 359 mg/dL (227-377) Sodium Level 139 MEQ/L (136-145) Potassium Level 4.5 MEQ/L (3.5-5.1) Chloride Level 111 MEQ/L (98-107) Carbon Dioxide Level 21.4 MEQ/L (21.0-32.0) Anion Gap 7 MEQ/L (5-15) Blood Urea Nitrogen 11 MG/DL (7-18) Creatinine 0.91 MG/DL (0.60-1.30) Estimat Glomerular Filtration 84 ML/MIN (>89) Rate Random Glucose 98 MG/DL (74-106) Hemoglobin A1c 5.6 % (4.3-6.0) Calcium Level 7.2 MG/DL (8.5-10.1) Protein Corrected Calcium 8.2 MG/DL (8.5-10.1) Phosphorus Level 2.9 MG/DL (2.5-4.9) Magnesium Level 1.9 MG/DL (1.5-2.5) Total Bilirubin 0.6 MG/DL (0.2-1.0) Aspartate Amino Transf 30 U/L (15-37) (AST/SGOT) Alanine Aminotransferase 19 U/L (12-78) (ALT/SGPT) Alkaline Phosphatase 59 U/L (45-117) Total Protein 5.3 GM/DL (6.4-8.2) Albumin 2.3 GM/DL (3.4-5.0) Triglycerides Level 116 MG/DL (42-150) Cholesterol Level 155 MG/DL (120-200) LDL Cholesterol 100 MG/DL (0-99) HDL Cholesterol 32.0 MG/DL (40.0-60.0) Cholesterol/HDL Ratio 4.84 RATIO Phenytoin (Dilantin) Level 2.9 MCG/ML 3.9 MCG/ML (10.0-20.0) (10.0-20.0) Blood Gas Puncture Site RT RADIAL RT RADIAL Blood Gas Patient Temperature 98.6 98.6 Blood Gas HCO3 19 mmol/L 19 mmol/L (22-26) (22-26) Blood Gas Base Excess -6.6 mmol/L -6.2 mmol/L (-2-2) (-2-2) Blood Gas Oxygen Saturation 96 % (90-100) 94 % (90-100) Arterial Blood pH 7.29 7.29 (7.380-7.420) (7.380-7.420) Arterial Blood Partial 40 mmHg (38-42) 41 mmHg (38-42) Pressure CO2 Arterial Blood Partial 106 mmHg 84 mmHg Pressure O2 (61-120) (61-120) Arterial Blood Oxygen Content 17.2 Vol % 16.6 Vol % (12.0-20.0) (12.0-20.0) Arterial Blood 1.6 % (0-4) 1.8 % (0-4) Carboxyhemoglobin Arterial Blood Methemoglobin 1.0 % (0-2) 0.9 % (0-2) Blood Gas Hemoglobin 12.7 G/DL 12.5 G/DL (12.0-16.0) (12.0-16.0) Oxygen Delivery Device VENTILATOR VENT Blood Gas Ventilator Setting PRVC14/500/1.0/+5 PRVC 14/500/PEEP5 Blood Gas Inspired Oxygen 45 % 40 % Test 04/24/17 04/25/17 04/25/17 20:50 03:37 08:48 Activated Partial 61.6 SEC 66.1 SEC 61.1 SEC Thromboplast Time (24.3-30.1) (24.3-30.1) (24.3-30.1) White Blood Count 10.8 TH/MM3 (4.0-11.0) Red Blood Count 4.02 MIL/MM3 (4.50-5.90) Hemoglobin 12.3 GM/DL (13.0-17.0) Hematocrit 36.0 % (39.0-51.0) Mean Corpuscular Volume 89.5 FL (80.0-100.0) Mean Corpuscular Hemoglobin 30.7 PG (27.0-34.0) Mean Corpuscular Hemoglobin 34.2 % Concent (32.0-36.0) Red Cell Distribution Width 13.7 % (11.6-17.2) Platelet Count 172 TH/MM3 (150-450) Mean Platelet Volume 7.4 FL (7.0-11.0) Neutrophils (%) (Auto) 82.0 % (16.0-70.0) Lymphocytes (%) (Auto) 6.4 % (9.0-44.0) Monocytes (%) (Auto) 9.7 % (0.0-8.0) Eosinophils (%) (Auto) 1.6 % (0.0-4.0) Basophils (%) (Auto) 0.3 % (0.0-2.0) Neutrophils # (Auto) 8.8 TH/MM3 (1.8-7.7) Lymphocytes # (Auto) 0.7 TH/MM3 (1.0-4.8) Monocytes # (Auto) 1.0 TH/MM3 (0-0.9) Eosinophils # (Auto) 0.2 TH/MM3 (0-0.4) Basophils # (Auto) 0.0 TH/MM3 (0-0.2) CBC Comment DIFF FINAL Differential Comment Sodium Level 138 MEQ/L (136-145) Potassium Level 4.8 MEQ/L (3.5-5.1) Chloride Level 109 MEQ/L (98-107) Carbon Dioxide Level 20.8 MEQ/L (21.0-32.0) Anion Gap 8 MEQ/L (5-15) Blood Urea Nitrogen 14 MG/DL (7-18) Creatinine 1.21 MG/DL (0.60-1.30) Estimat Glomerular Filtration 60 ML/MIN (>89) Rate Random Glucose 105 MG/DL (74-106) Calcium Level 7.5 MG/DL (8.5-10.1) . Result Diagram: 8/8/17 0337 04/25/17 0337 Microbiology Microbiology Date/Time Procedure Status Source Growth 04/22/17 08:50 Aerobic Blood Culture - Preliminary Resulted Blood Peripheral NO GROWTH IN 3 DAYS 04/22/17 08:50 Anaerobic Blood Culture - Preliminary Resulted Blood Peripheral NO GROWTH IN 3 DAYS . Imaging Last Impressions Chest X-Ray 04/24/17 0600 Signed Impressions: Service Date/Time: Monday, April 24, 2017 03:07 - CONCLUSION: No significant change has occurred. Haroon Pichardo MD Head CT 04/23/17 0000 Signed Impressions: Service Date/Time: Sunday, April 23, 2017 18:44 - CONCLUSION: 1. Evolving infarct in the posterior fossa involving the cerebellar hemisphere on the right and the right caroline with increasing swelling and mass effect with partial effacement of the fourth ventricle and prepontine cistern. Comparison is April 22. Also evolving infarcts again noted in the medial temporal and occipital lobes. Carlos Goyal MD Neck Magnetic Resonance Angiography 04/22/17 0000 Signed Impressions: Service Date/Time: Saturday, April 22, 2017 16:26 - CONCLUSION: Severely compromised posterior circulation with acutely thrombosed bilateral vertebral arteries as described above. No acute anterior circulation abnormality. Rodney Pennington MD Head Magnetic Resonance Angiography 04/22/17 0000 Signed Impressions: Service Date/Time: Saturday, April 22, 2017 16:26 - CONCLUSION: 1. Large acute posterior circulation deficit with essential nonfilling of the visualized vertebral arteries and posterior cerebral arteries. Other than some limited filling of the left anterior, inferior cerebellar artery, the cerebellar arteries also don't fill. 2. Partially occluded distal right middle cerebral artery branches noted but actually improved modestly in the interim. No acute anterior circulation abnormality seen. Rodney Pennington MD Brain MRI 04/22/17 0000 Signed Impressions: Service Date/Time: Saturday, April 22, 2017 16:26 - CONCLUSION: 1. Previous infarct in the right cerebellar hemisphere has extended medially and now involves the right middle cerebellar peduncle and right caroline and extending slightly into the left caroline. The medial temporal and occipital lobe infarcts are relatively stable. Remote right MCA infarct is stable. Carlos Goyal MD . Procedures * Intubation/mechanical ventilation . Patient/Family Conference Present at Family Conference: Son, brother, sister, niece . Family Conference Time (mins): 45 Family Conference Location: Bedside Issues Discussed: * Palliative care role, purpose, approach * Additional medical, psychosocial, and spiritual history * Patients general health, functional status, and cognitive changes in the months leading up to the current hospitalization * Family understanding of the current medical problems * Family understanding of prognosis * Patients goals of care as best understood from conversations and/or values * Current medical treatment options and benefits/burdens of those options * Likely scenarios comparing ongoing aggressive care with a transition to comfort measures only * Questions answered to the best of my ability * Discussed possibility of organ donation . Assessment and Plan Disease Oriented Problem List: (1) Posterior circulation stroke (2) Aspiration pneumonia (3) Hypertensive urgency (4) Carotid artery disease (5) Upper GI bleed (6) Hypoalbuminemia Symptom Scale: (1) Dyspnea 0-10 Scale: Unable to quantify Comment: Managed with mechanical ventilation. (2) Encephalopathy 0-10 Scale: Unable to quantify Comment: Patient unresponsive. . Pertinent Non-Medical Issues Psychosocial: Has lived in a facility for approximately 10 years. Most of family lives in [place]. Spiritual: From a Voodoo tradition. Holiness and spirituality are important to him. Family has declined [facility] electronic test technician services. Legal: No written advance directives. There is a DURABLE POWER OF FLAT FINISHER document but it does not specify healthcare decision-making. Ethical issues impacting care: Patient is incapacitated and there is essentially no medical probability that he will regain capacity. . Important Contacts * Jg Blanco (brother and power of insurance attorney only for financial matters -- not health care) -- [phone] . Prognosis Patient is had a massive stroke. He continues to decline. Pupils are now fixed and dilated. There is no gag reflex. Patient is unable to breathe over the ventilator. Today he began becoming hypotensive and bradycardic. would likely come within hours to a few days even with ongoing aggressive care. Patient would likely proceed to brain . His condition is indeed terminal. . Code Status: No Code Plan -- Code Status: NO CODE == Decison making: Patient is incapacitated to make his own health care decisions. There is no reasonable medical probability that he will recover such capacity.. Though there is a power of insurance attorney document assigning power of insurance attorney status to the patient's brother-- Jg Blanco -- the document is only for financial power of insurance attorney and makes no mention of healthcare decision-making. Healthcare decision-making, would therefore fall to the patient's adult children. There is a son and daughter. Unfortunately the daughter has been estranged we have no contact information for her. Therefore, proxy decision-making falls to the patient's son.== == Goals of medical treatment: All family members feel strongly that the patient, given the current medical condition and prognosis would opt to compassionately withdraw life support and transition to "comfort measures only" as soon as possible. Though the patient has been signed up with an organ donor Registry, son says he has spoken to his father since his registration and the patient indicated he would not want to donate organs. == Dyspnea: Patient has a probable aspiration pneumonia. He is not able to breathe over the vent. This is probably from his neurologic stroke injury rather than from a primary lung process. Dyspnea is currently managed with mechanical ventilation. Upon transition to "comfort measures only," will utilize opiates and benzodiazepines to help manage dyspnea. == Encephalopathy: The patient's altered mental status is secondary to the severe brain injury from his stroke. At this point, patient is comatose. No further recommendations at this time. == Case discussed with Dr. Connelly. == Given the patient's deteriorating medical condition and his goals of medical treatment as interpreted by his family members, I have... * Provided anticipatory guidance on withdrawal of life support * Signed and completed recertification of terminal illness document * Had family sign and get witnesses for permission withdraw life support. * Offered electronic test technician services which were declined. * Remote orders for compassionate withdrawal of life support and post withdrawal comfort orders. * Orders discussed with primary nurse. . Time Spent Total Floor Time (mins): 90 (Total floor time included chart review; patient examination; discussion of case with Dr. Connelly; above-referenced family conference; writing orders for withdrawal of life support; collaboration with primary nurse and with our organ procurement organization.) Face to Face Time (mins): 55 >50% Counseling/Coord of Care: Yes Thank you for the opportunity to participate in the care of Mr. Blanco. . Attestation To help prompt me to consider important information that might be impacting today's encounter and assessment, information from prior notes written by myself or my colleagues may have been "brought forward" into today's note. My signature on this note, however, is an attestation that I personally performed the exam, history, and/or decision-making noted today, and, unless otherwise indicated, the interactions with patient, family, and staff as well as the review of records all occurred today. I also attest that the listed assessment and stated plan reflect my best clinical judgment today based on the combination of historical information, prior notes, and today's exam/ interactions. When time spent is documented, it refers only to time spent today by the signer, or if indicated, combined time spent today by collaborating physician/nurse practitioner. . Roderick Harris MD Apr 25, 2017 15:08
--- NOTE | 2017-04-25 15:25 | HHI.GIFU ---
Subjective Remarks intubated on vent. Per RN there has been neurological deterioration. Objective Vitals I&O Vital Signs Date Time Temp Pulse Resp B/P Pulse Ox O2 Delivery O2 Flow Rate FiO2 04/25/17 13:14 94 50 04/25/17 09:45 95 40 04/25/17 07:25 94 40 04/25/17 07:25 40 04/25/17 06:00 57 04/25/17 04:00 98.1 64 14 108/56 95 04/25/17 04:00 64 04/25/17 04:00 35 04/25/17 03:26 95 40 04/25/17 02:00 55 04/25/17 00:00 35 04/25/17 00:00 98.6 60 14 98/50 95 04/25/17 00:00 60 04/24/17 23:48 94 40 04/24/17 22:00 62 04/24/17 20:23 94 40 04/24/17 20:00 35 04/24/17 20:00 63 04/24/17 20:00 98.8 63 14 108/59 94 04/24/17 18:00 63 04/24/17 16:00 35 04/24/17 16:00 97.1 63 14 124/60 94 04/24/17 16:00 63 04/24/17 15:26 94 40 I/O 04/24/17 04/24/17 04/24/17 04/25/17 04/25/17 04/25/17 06:59 14:59 22:59 06:59 14:59 22:59 Intake Total 573 ml 618 ml 1050 ml 479 ml Output Total 400 ml 425 ml 300 ml 200 ml Balance 173 ml 193 ml 750 ml 279 ml Intake Oral 0 ml IV Total 573 ml 618 ml 1030 ml 479 ml Tube Feeding 20 ml Output Urine Total 350 ml 425 ml 300 ml 200 ml Gastric Drainage Total 50 ml # Bowel Movements 0 0 0 0 Laboratory Laboratory Tests Test 04/24/17 04/25/17 04/25/17 20:50 03:37 08:48 Activated Partial 61.6 66.1 61.1 Thromboplast Time White Blood Count 10.8 Red Blood Count 4.02 Hemoglobin 12.3 Hematocrit 36.0 Mean Corpuscular Volume 89.5 Mean Corpuscular Hemoglobin 30.7 Mean Corpuscular Hemoglobin 34.2 Concent Red Cell Distribution Width 13.7 Platelet Count 172 Mean Platelet Volume 7.4 Neutrophils (%) (Auto) 82.0 Lymphocytes (%) (Auto) 6.4 Monocytes (%) (Auto) 9.7 Eosinophils (%) (Auto) 1.6 Basophils (%) (Auto) 0.3 Neutrophils # (Auto) 8.8 Lymphocytes # (Auto) 0.7 Monocytes # (Auto) 1.0 Eosinophils # (Auto) 0.2 Basophils # (Auto) 0.0 CBC Comment DIFF FINAL Differential Comment Sodium Level 138 Potassium Level 4.8 Chloride Level 109 Carbon Dioxide Level 20.8 Anion Gap 8 Blood Urea Nitrogen 14 Creatinine 1.21 Estimat Glomerular Filtration 60 Rate Random Glucose 105 Calcium Level 7.5 Date/Time Procedure Status Source Growth 04/22/17 08:50 Aerobic Blood Culture - Preliminary Resulted Blood Peripheral NO GROWTH IN 3 DAYS 04/22/17 08:50 Anaerobic Blood Culture - Preliminary Resulted Blood Peripheral NO GROWTH IN 3 DAYS Imaging Last Impressions Chest X-Ray 04/24/17 0600 Signed Impressions: Service Date/Time: Monday, April 24, 2017 03:07 - CONCLUSION: No significant change has occurred. Haroon Pichardo MD Head CT 04/23/17 0000 Signed Impressions: Service Date/Time: Sunday, April 23, 2017 18:44 - CONCLUSION: 1. Evolving infarct in the posterior fossa involving the cerebellar hemisphere on the right and the right caroline with increasing swelling and mass effect with partial effacement of the fourth ventricle and prepontine cistern. Comparison is April 22. Also evolving infarcts again noted in the medial temporal and occipital lobes. Carlos Goyal MD Neck Magnetic Resonance Angiography 04/22/17 0000 Signed Impressions: Service Date/Time: Saturday, April 22, 2017 16:26 - CONCLUSION: Severely compromised posterior circulation with acutely thrombosed bilateral vertebral arteries as described above. No acute anterior circulation abnormality. Rodney Pennington MD Head Magnetic Resonance Angiography 04/22/17 0000 Signed Impressions: Service Date/Time: Saturday, April 22, 2017 16:26 - CONCLUSION: 1. Large acute posterior circulation deficit with essential nonfilling of the visualized vertebral arteries and posterior cerebral arteries. Other than some limited filling of the left anterior, inferior cerebellar artery, the cerebellar arteries also don't fill. 2. Partially occluded distal right middle cerebral artery branches noted but actually improved modestly in the interim. No acute anterior circulation abnormality seen. Rodney Pennington MD Brain MRI 04/22/17 0000 Signed Impressions: Service Date/Time: Saturday, April 22, 2017 16:26 - CONCLUSION: 1. Previous infarct in the right cerebellar hemisphere has extended medially and now involves the right middle cerebellar peduncle and right caroline and extending slightly into the left caroline. The medial temporal and occipital lobe infarcts are relatively stable. Remote right MCA infarct is stable. Carlos Goyal MD Physical Exam HEENT: pupils fixed and dilated, normocephalic; atraumatic; no jaundice. intubated CHEST: coarse CARDIAC: tru ABDOMEN: Soft, mildly distended; no hepatosplenomegaly; bowel sounds are present in all four quadrants. EXTREMITIES: No clubbing, cyanosis, BUE edema, left arm erythematous SKIN: no rash; no jaundice. SEED POTATO CUTTER: on vent, unresponsive Assessment and Plan Plan ASSESSMENT Coffee-ground emesis, episode overnight with brown coffee ground fluid noted in OGT. HH dropped to 12.9. INR 1.1 Has been on Heparin (on hold). Patient with history of alcohol abuse and now drinking occasionally at intermediate, per EMR. Protonix IV. 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 History of recent bilateral CIRCULAR GANG SAW OPERATOR CVA. 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 Recommended systemic anticoagulation. Per critical care team. Acute hypercapnic respiratory failure, Orotracheally intubated. Per critical care team. Hypertension, Dyslipidemia, Coronary artery disease, History of CABG 4, Chronic systolic heart failure, BPH, Hypothyroidism, CKD stage II, per critical care team. PLAN - family transitioning to comfort care - supportive care - GI will sign off Patient seen and examined by and myself and this note is written on his behalf. Love Bowman PEDIATRIC CLINICAL DIETICIAN Apr 25, 2017 15:25
[2017-04-25] MEDS ORDERED: LORazepam 2 MG/ML VIAL IV ONE ×2 (16:15→16:45)
[2017-04-25] MEDS ORDERED: HYDROmorphone HCL PF 2 MG/ML VIAL IV ONE ×2 (16:15→16:45)
[2017-04-25] MEDS ORDERED: HYOSCYAMINE 0.5 MG/ML AMP IV ONE (16:15)
[2017-04-25] MEDS ORDERED: LORazepam 2 MG/ML VIAL IV PRN ×2 (16:45)
[2017-04-25] MEDS ORDERED: HYDROmorphone HCL PF 2 MG/ML VIAL IV PRN ×2 (16:45)
[2017-04-25] MEDS ORDERED: BISACODYL 10 MG SUPP RECTAL PRN (16:45)
[2017-04-25] MEDS ORDERED: ACETAMINOPHEN 650 MG SUPP RECTAL PRN (16:45)
[2017-04-25] MEDS ORDERED: LORazepam 2 MG/ML VIAL IVS PRN (16:45)
[2017-04-25] MEDS ORDERED: FUROSEMIDE 20 MG/2 ML VIAL IV PRN (16:45)
[2017-04-25] MEDS ORDERED: HYOSCYAMINE 0.5 MG/ML AMP IV PRN (16:45)
== END 2017-04-25 17:30 | disposition expired | DRG 64 ==
LOC: NEPC 08:14 → NEDA 10:55 → HIME 17:10
PROVIDERS: ADMIT Internal Medicine Critical Care Medicine; ATTEND Internal Medicine Critical Care Medicine
PROC: 0BH17EZ Insertion of Endotracheal Airway into Trachea, Via Natural or Artificial Opening (ICD-10-PCS; principal; 2017-04-22)
PROC: 5A1945Z Respiratory Ventilation, 24-96 Consecutive Hours (ICD-10-PCS; 2017-04-22)
DX: I63.539 Cerebral infarction due to unspecified occlusion or stenosis of unspecified posterior cerebral artery (principal); J69.0 Pneumonitis due to inhalation of food and vomit; J96.02 Acute respiratory failure with hypercapnia; G93.6 Cerebral edema; G92 Toxic encephalopathy; K92.0 Hematemesis; E87.3 Alkalosis; I16.1 Hypertensive emergency; I69.354 Hemiplegia and hemiparesis following cerebral infarction affecting left non-dominant side; I50.22 Chronic systolic (congestive) heart failure; E87.1 Hypo-osmolality and hyponatremia; R56.9 Unspecified convulsions; I48.91 Unspecified atrial fibrillation; E78.5 Hyperlipidemia, unspecified; J44.9 Chronic obstructive pulmonary disease, unspecified; I25.10 Atherosclerotic heart disease of native coronary artery without angina pectoris; N40.0 Benign prostatic hyperplasia without lower urinary tract symptoms; I25.2 Old myocardial infarction; I12.9 Hypertensive chronic kidney disease with stage 1 through stage 4 chronic kidney disease, or unspecified chronic kidney disease; E03.9 Hypothyroidism, unspecified; Z87.891 Personal history of nicotine dependence; I65.01 Occlusion and stenosis of right vertebral artery; N18.2 Chronic kidney disease, stage 2 (mild); Z79.01 Long term (current) use of anticoagulants; Z95.1 Presence of aortocoronary bypass graft; I73.9 Peripheral vascular disease, unspecified; Z85.828 Personal history of other malignant neoplasm of skin; Z51.5 Encounter for palliative care
CPT/HCPCS: 31500; 36600; 70450; 70544; 70548; 70551; 71010; 76937; 80048; 80053; 80061; 80177; 80185; 80307; 81001; 82140; 82550; 82805; 82948; 83036; 83605; 83735; 84100; 84443; 84484; 85014; 85018; 85025; 85027; 85384; 85610; 85730; 87040; 87641; 93005; 94002; 94003; 94640; 94664; 95819; 96361; 96374; 96375; A9579; C9113; C9248; J0330; J0360; J0456; J0610; J0692; J1170; J1265; J1644; J1980; J2060; J2405; J2543; J3010; J3370; J3480; J7030; J7040; J7042; J7050; J7120; P9612; Q2009